=== PATIENT | male | born 1965 | race Caucasian/White ===

== ENCOUNTER → 2017-07-25 | Outpatient (CLI) | payer SELFPAY ==
[~2017-07-25] MED LIST: ACHD5005 PO; ACID16CA2 PO; ALBU8.5H4 IH; AMLO5TAB2 PO; AMOX500C2 PO; ASP81CT PO; ASP81TEC PO; ATOR40TA PO; CEPH500C PO; CPR500T PO; CYCL10TA9 PO; DOXY100C2 PO; GABA800T2 PO; GUAI120L27 PO; HYDR-1231 PO; MELO15TA14 PO; METO25TA2 PO; MTP25TSR PO; MTR500T PO; NAPR-243 PO; OMEG1CAP74 PO; PRD20T PO; PRD50T PO; SULF-222 PO; TRAM50TA2 PO; TRM50T PO; TRZ100T PO
--- NOTE | 2017-07-25 10:57 | Diagnostic Imaging Report ---
PROCEDURE: MRI right joint lower extremity without contrast. TECHNIQUE: Multiplanar, multisequence non contrast-enhanced MRI of the right lower extremity was accomplished. INDICATION: Shoulder pain. FINDINGS: There are no previous MRI examinations available for comparison. The plain film exam of 06/26/2014 failed to show any sign of an acute bony abnormality. On the sagittal T2 oblique series, both the anterior and posterior cruciate ligaments appear to be intact. The quadriceps and infrapatellar tendons are also intact, although there does appear to be edema/inflammation along the soft tissues anterior to the patella and the infrapatellar tendon. The medial collateral and fibular collateral ligaments, the biceps femoris tendon, and the iliotibial band show no sign of an acute injury. There is no sign of a tear of the medial or lateral retinaculum. There are areas of abnormal signal within the substance of each meniscus. However, these signal abnormalities do not clearly communicate with the articular surfaces of the menisci and consequently are more likely due to degenerative disease than to a tear. The knee joint is fairly well maintained. There is only a small amount of fluid within the knee joint. There is no evidence for a Scott's cyst. IMPRESSION: 1. The major ligaments and tendons are intact. 2. The areas of altered signal within the menisci are more likely due to degenerative disease than to meniscal tears. 3. There is no acute bony abnormality identified. The knee joint is fairly well maintained. 4. There is soft tissue edema along the anterior aspect of the patella and the infrapatellar tendon. Dictated by: Dictated on workstation # [id number]
== END ==
LOC: RAD 09:34
PROVIDERS: ATTEND Nurse Practitioner
DX: S83.241A Other tear of medial meniscus, current injury, right knee, initial encounter (principal)
CPT/HCPCS: 73721

== ENCOUNTER 2021-12-06 11:33 | Emergency (ER) | payer SELFPAY ==
[~2021-12-06] VITALS: Ht 170 cm; Wt 88.0 kg
[~2021-12-06 11:33] MED LIST changes: +CYCL10TA25 PO; -CYCL10TA9 PO; +GABA800T10 PO; -GABA800T2 PO
--- NOTE | 2021-12-06 13:07 | ED General ---
General Chief Complaint: Rib Pain Stated Complaint: RIB PAIN Source of Information: Patient Exam Limitations: No Limitations History of Present Illness Date Seen by Provider: December 06, 2021 Time Seen by Provider: 13:00 Initial Comments This is a 55-year-old male who presented to the ER for complaints of left-sided rib pain and left upper quadrant tenderness for the past 2 days. States that on December 04 he had a "car fall on him while he was working underneath it. He was not evaluated after the incident and over the past several days he has been having increasing pain. Today he was unable to get out of bed by himself so he presented to the ER to evaluate for any possible fractures. Has not taken any Tylenol or ibuprofen or any other pain relief medications at home. States that he takes gabapentin daily and did take this morning. He has no shortness of breath, nausea, vomiting. Allergies and Home Medications Allergies Coded Allergies: Penicillins (Unverified Allergy, Unknown, 03/02/12) diphenhydramine HCl (Verified Allergy, Unknown, 09/28/13) latex (Unverified Adverse Reaction, Mild, rash, 09/28/13) Patient Home Medication List Albuterol Sulfate (Albuterol Sulfate Hfa) 8.5 Gm Hfa.aer.ad, 8.5 GM IH, (Reported) Entered as Reported by: MAGGI AQUINO on 02/12/15 180 Amlodipine Besylate (Amlodipine Besylate) 5 Mg Tablet, 5 MG PO DAILY, (Reported) Entered as Reported by: JAMAL MADRID on 02/18/11 1336 Cyclobenzaprine HCl (Cyclobenzaprine HCl) 10 Mg Tablet, 10 MG PO Q8H Prescribed by: MAURISIO KELLEY on 08/04/15632 Gabapentin (Gabapentin) 800 Mg Tablet, 800 MG PO, (Reported) Entered as Reported by: FREDDY ROSALES on 08/04/15 05 Meloxicam (Mobic) 15 Mg Tablet, 15 MG PO DAILY Prescribed by: MAURISIO KELLEY on 08/04/15632 Metoprolol Tartrate (Metoprolol Tartrate 25 Mg) 25 Mg Tablet, 25 MG PO BID, (Reported) Entered as Reported by: JAMAL MADRID on 02/18/11 1336 Tramadol HCl (Tramadol HCl) 50 Mg Tablet, 50 MG PO, (Reported) Entered as Reported by: FREDDY ROSALES on 08/04/15 0526 Trazodone Hcl (Desyrel) 100 Mg Tablet, 100 MG PO HS, (Reported) Entered as Reported by: DONALD BUSH on 09/28/13 1109 Past Sjlqzuh-Pmthay-Dcizut Hx Seasonal Allergies Seasonal Allergies: No Past Medical History Appendectomy, Cardiac, Orthopedic Asthma, COPD Hypertension Reproductive Disorders: No Chronic Back Pain Sleep Difficulties Adverse Reaction/Blood Tranf: No Physical Exam Vital Signs Capillary Refill : Height, Weight, BMI Height: 5'7" Weight: 200lbs. 6.4oz. 90.219696yf; 31.32 BMI Method:Estimated Progress/Results/Core Measures Suspected Sepsis SIRS Temperature: Pulse: Respiratory Rate: Blood Pressure / Mean: Results/Orders My Orders Orders - SHERWIN ATKINS APRN Ct Chest/Abdomen Wo (12/06/21 13:02) Hydrocodone/Apap 5/325 Tablet (Lortab 5 (12/06/21 13:15) Medications Given in ED Current Medications Medications Dose Ordered Sig/Nicole Route Start Time Stop Time Status Last Admin Dose Admin Acetaminophen/ Hydrocodone Bitart 1 ea ONCE ONCE PO 12/06/21 13:15 12/06/21 13:16 DC 12/06/21 13:11 1 EA Vital Signs/I&O Capillary Refill : Departure Impression Primary Impression: Contusion of rib on left side Disposition: 01 HOME, SELF-CARE Condition: Improved Departure-Patient Inst. Referrals: AMANDA SLADE DO (PCP/Family) Primary Care Physician Patient Instructions: Rib Fracture or Bruised Rib ED Add. Discharge Instructions: Plan: 1. Take steroids daily as directed with food so this does not cause GI upset. 2. May take hydrocodone as needed every 6 hours for severe pain, you can take ibuprofen as directed per package with food. 3. Use your incentive spirometer 4 times a day as shown in the ER, this is to help prevent you from developing pneumonia. 4. Follow-up with your primary care provider if your symptoms worsen, you develop fever, increased cough, shortness of breath or any other new or concerning symptoms. All discharge instructions reviewed with patient and/or family. Voiced unde rstanding. Scripts Hydrocodone/Acetaminophen (Hydrocodone-Acetamin 5-325 mg) 5 Mg-325 Mg Tablet 1 TAB PO Q6H PRN for PAIN-MODERATE (5-7), #10 TAB 0 Refills Prov: SHERWIN ATKINS POLICY CHECKER 12/06/21 Prednisone (Prednisone) 20 Mg Tab 20 MG PO DAILY, #6 TAB 0 Refills Prov: SHERWIN ATKINS POLICY CHECKER 12/06/21 SHERWIN ATKINS APRN December 06, 2021 13:07
[2021-12-06] MEDS ORDERED: HYDROcodone/APAP 5 MG/325 MG (LORTAB) TAB PO ONE (13:15)
--- NOTE | 2021-12-06 14:37 | Diagnostic Imaging Report ---
PROCEDURE: CT chest and abdomen without contrast. TECHNIQUE: Axial images were obtained from the thoracic inlet through the iliac crest without the administration of intravenous contrast. Auto Exposure Controls were utilized during the CT exam to meet ALARA standards for radiation dose reduction. INDICATION: Unable to raise the left arm. Left-sided chest and abdominal pain. COMPARISON: None. FINDINGS: CT CHEST: The heart size is within normal limits. No pericardial effusion is present. Left pectoral ICD is in place. There is no mediastinal, hilar, or axillary lymphadenopathy. The lung windows demonstrate no pulmonary nodules or masses. There are no focal areas of consolidation. Small amount of dependent atelectasis is seen in the lung bases. No pneumothoraces are present. No central endobronchial obstructing lesions are identified. There are no pleural effusions. No acute osseous abnormalities are seen in the chest. CT ABDOMEN: The liver, spleen, pancreas, adrenal glands, and kidneys have a normal appearance. There is no pathologically enlarged mesenteric or retroperitoneal adenopathy. The bowel loops are nondilated. Diverticula are seen in the descending colon. There is no free fluid or free air. No acute osseous abnormalities. IMPRESSION: 1. No evidence of fracture in the left ribs. 2. No focal consolidation or pleural effusion. Small amount of dependent atelectasis is seen in the lung bases. 3. Diverticula in the descending colon without evidence of acute diverticulitis. Dictated by: Dictated on workstation # [id number]
[2021-12-06] MEDS ORDERED: PRD20T PO (14:45)
[2021-12-06] MEDS ORDERED: ACHD5005 PO (14:45)
[2021-12-06 14:59] VITALS: BP 138/88
== END 2021-12-06 14:59 | disposition home or self-care (01) ==
LOC: EDUNIT# 11:33 → ER 11:37
DX: S20.212A Contusion of left front wall of thorax, initial encounter (principal); Z79.899 Other long term (current) drug therapy; X58.XXXA Exposure to other specified factors, initial encounter
CPT/HCPCS: 71250; 74150

== ENCOUNTER 2021-12-13 17:01 | Emergency (ER) | payer SELFPAY ==
[~2021-12-13] VITALS: Ht 173 cm; Wt 89.0 kg
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
[2021-12-13 17:43] LABS: BASOPHILS % (AUTO) 1 % (0-10); MEAN CORPUSCULAR HEMOGLOBIN 29 pg (25-34); MONOCYTES # (AUTO) 0.4 10^3/uL (0.0-1.0)
[2021-12-13 17:45] LABS: EOSINOPHILS # (AUTO) 0.3 10^3/uL (0.0-0.3); EOSINOPHILS % (AUTO) 7 % (0-10); HEMATOCRIT 39 % (40-54); HEMOGLOBIN 13.6 g/dL (13.3-17.7); LYMPHOCYTES # (AUTO) 1.4 10^3/uL (1.0-4.0); LYMPHOCYTES % (AUTO) 32 % (12-44); MEAN CORPUSCULAR HGB CONC 35 g/dL (32-36); MEAN CORPUSCULAR VOLUME 84 fL (80-99); MEAN PLATELET VOLUME 10.9 fL (9.0-12.2); MONOCYTES % (AUTO) 9 % (0-12); NEUTROPHILS # (AUTO) 2.3 10^3/uL (1.8-7.8); NEUTROPHILS % (AUTO) 51 % (42-75); PLATELET COUNT 128 10^3/uL (130-400); WHITE BLOOD COUNT 4.5 10^3/uL (4.3-11.0)
--- NOTE | 2021-12-13 18:02 | Diagnostic Imaging Report ---
INDICATION: Left rib pain. TIME OF EXAM: 5:55 p.m. COMPARISON: Correlation is made with prior chest 03/07/2016. FINDINGS: Heart size is stable. Cardiac defibrillator is in place. Lungs are clear. No infiltrates are seen. There is no effusion or pneumothorax. No acute bony abnormality is detected. IMPRESSION: No acute abnormality is identified. Dictated by: Dictated on workstation # [id number]
[2021-12-13 18:04] LABS: ALBUMIN 3.8 GM/DL (3.2-4.5); BILIRUBIN,TOTAL 0.7 MG/DL (0.1-1.0); CALCIUM 9.1 MG/DL (8.5-10.1); CREATININE SERUM 0.86 MG/DL (0.60-1.30); POTASSIUM 3.6 MMOL/L (3.6-5.0); TOTAL PROTEIN 6.8 GM/DL (6.4-8.2)
[2021-12-13] MEDS ORDERED: LIDO700A45 TP (18:28)
[2021-12-13] MEDS ORDERED: METH-731 PO (18:28)
[2021-12-13] MEDS ORDERED: KETOROLAC 30 MG/ML VIAL IVP ONE (18:30)
[2021-12-13] MEDS ORDERED: ORPHENADRINE 60 MG/2 ML (NORFLEX) AMP (ED ONLY) IV ONE (18:30)
[2021-12-13 18:40] VITALS: BP 145/83
== END 2021-12-13 18:38 | disposition home or self-care (01) ==
LOC: EDUNIT# 17:01 → ER 17:07
DX: R07.89 Other chest pain (principal); W20.8XXA Other cause of strike by thrown, projected or falling object, initial encounter
CPT/HCPCS: 36415; 71046; 80053; 85025; 86141

== ENCOUNTER 2022-06-28 08:39 | Observation (INO) | payer OTHER, MEDICAID ==
[~2022-06-28] VITALS: Ht 170 cm; Wt 92.8 kg
[~2022-06-28 08:39] MED LIST changes: +LIDO700A45 TP; +METH-731 PO
--- NOTE | 2022-06-28 08:47 | ED General ---
General Stated Complaint: SOB | History of Present Illness Date Seen by Provider: Jun 28, 2022 Time Seen by Provider: 08:47 Initial Comments 56-year-old male with PMH of CAD with 2 stents/pacemaker/asthma/non-smoker, is here with complaints of shortness of breath which has been going on for 3 days and worsening in intensity. Patient has been using his inhalers but it has not been working much, and he has begun wheezing today morning as well. Patient also has associated symptoms of cough. No known sick contacts. Denies chest pain, diarrhea, headache, body aches. Patient's states that patient is noncompliant with medications and misses medication doses all the time. Allergies and Home Medications Allergies Coded Allergies: Penicillins (Unverified Allergy, Unknown, 03/02/12) diphenhydramine HCl (Verified Allergy, Unknown, 09/28/13) latex (Unverified Adverse Reaction, Mild, rash, 09/28/13) Patient Home Medication List Home Medication List Reviewed: Yes Albuterol Sulfate (Albuterol Sulfate Hfa) 8.5 Gm Hfa.aer.ad, 8.5 GM IH, (Reported) Entered as Reported by: MAGGI AQUINO on 02/12/15 1801 Amlodipine Besylate (Amlodipine Besylate) 5 Mg Tablet, 5 MG PO DAILY, (Reported) Entered as Reported by: JAMAL MADRID on 02/18/11 1336 Cyclobenzaprine HCl (Cyclobenzaprine HCl) 10 Mg Tablet, 10 MG PO Q8H Prescribed by: MAURISIO KELLEY on 08/04/15 0633 Gabapentin (Gabapentin) 800 Mg Tablet, 800 MG PO, (Reported) Entered as Reported by: FREDDY ROSALES on 08/04/15 0526 Hydrocodone/Acetaminophen (Hydrocodone-Acetamin 5-325 mg) 5 Mg-325 Mg Tablet, 1 TAB PO Q6H PRN for PAIN-MODERATE (5-7) Prescribed by: SHERWIN ATKINS on 12/06/21 1446 Lidocaine (Lidocaine 5% Patch) 5 % Adh..patch, 1 EACH TP Q12H PRN for Neuropathic pain Prescribed by: HUMERA WARREN on 12/13/21 1828 Meloxicam (Mobic) 15 Mg Tablet, 15 MG PO DAILY Prescribed by: MAURISIO KELLEY on 08/04/15 0633 Methocarbamol (Methocarbamol) 500 Mg Tablet, 1,000 MG PO Q6-8HR Prescribed by: HUMERA WARREN on 12/13/21 1828 Metoprolol Tartrate (Metoprolol Tartrate 25 Mg) 25 Mg Tablet, 25 MG PO BID, (Reported) Entered as Reported by: JAMAL MADRID on 02/18/11 1336 Prednisone (Prednisone) 20 Mg Tab, 20 MG PO DAILY Prescribed by: SHERWIN ATKINS on 12/06/21 1445 Tramadol HCl (Tramadol HCl) 50 Mg Tablet, 50 MG PO, (Reported) Entered as Reported by: FREDDY ROSALES on 08/04/15 0526 Trazodone Hcl (Desyrel) 100 Mg Tablet, 100 MG PO HS, (Reported) Entered as Reported by: DONALD BUSH on 09/28/13 1109 Review of Systems Review of Systems Constitutional: no symptoms reported EENTM: no symptoms reported Respiratory: cough, short of breath Cardiovascular: no symptoms reported Gastrointestinal: no symptoms reported Genitourinary: no symptoms reported Musculoskeletal: no symptoms reported Skin: no symptoms reported Psychiatric/Neurological: No Symptoms Reported Hematologic/Lymphatic: No Symptoms Reported Immunological/Allergic: no symptoms reported Past Wfsltms-Ujdpdx-Ehudea Hx Seasonal Allergies Seasonal Allergies: No Past Medical History Surgery/Hospitalization HX: pacemaker, hypertension, high cholesterol Appendectomy, Cardiac, Orthopedic Asthma, COPD Hypertension Reproductive Disorders: No Chronic Back Pain Sleep Difficulties Adverse Reaction/Blood Tranf: No Physical Exam Vital Signs Vital Signs - First Documented 06/28/22 08:40 Temp 37.7 Pulse 114 Resp 16 B/P (MAP) 164/113 (130) Pulse Ox 94 O2 Delivery Room Air Capillary Refill : Height, Weight, BMI Height: 5'7" Weight: 200lbs. 6.4oz. [id number]; 29.00 BMI Method:Estimated General Appearance: No Apparent Distress, WD/WN, Mild Distress HEENT: PERRL/EOMI, Pharyngeal Erythema Neck: Full Range of Motion, Normal Inspection, Non Tender, Supple Respiratory: No Accessory Muscle Use, No Respiratory Distress, Rhonci, Wheezing, Other (Tenderness over the left 11th and 12th rib area) Cardiovascular: Regular Rate, Rhythm, No Edema Gastrointestinal: Normal Bowel Sounds, Non Tender, Soft Back: Normal Inspection, No CVA Tenderness Extremity: Normal Range of Motion Neurologic/Psychiatric: Alert, Oriented x3, No Motor/Sensory Deficits Skin: Normal Color Focused Exam Lactate Level 06/28/22 08:47: Lactic Acid Level 3.04*H 06/28/22 11:25: Lactic Acid Level 1.32 Lactic Acid Level Laboratory Tests Test 06/28/22 08:47 06/28/22 11:25 Lactic Acid Level 3.04 MMOL/L (0.50-2.00) *H 1.32 MMOL/L (0.50-2.00) Progress/Results/Core Measures Suspected Sepsis SIRS Temperature: Pulse: Respiratory Rate: Laboratory Tests 06/28/22 08:47: White Blood Count 5.2 Blood Pressure / Mean: 06/28/22 08:47: Lactic Acid Level 3.04*H 06/28/22 11:25: Lactic Acid Level 1.32 Laboratory Tests 06/28/22 08:47: Creatinine 0.93, INR Comment 1.0, Platelet Count 97L, Total Bilirubin 1.0 Results/Orders Lab Results Laboratory Tests Test 06/28/22 08:47 06/28/22 09:23 06/28/22 11:08 06/28/22 11:25 Range/Units White Blood Count 5.2 4.3-11.0 10^3/uL Red Blood Count 5.07 4.30-5.52 10^6/uL Hemoglobin 14.5 13.3-17.7 g/dL Hematocrit 41 40-54 % Mean Corpuscular Volume 82 80-99 fL Mean Corpuscular Hemoglobin 29 25-34 pg Mean Corpuscular Hemoglobin Concent 35 32-36 g/dL Red Cell Distribution Width 14.6 H 10.0-14.5 % Platelet Count 97 L 130-400 10^3/uL Mean Platelet Volume 11.5 9.0-12.2 fL Immature Granulocyte % (Auto) 0 % Neutrophils (%) (Auto) 76 H 42-75 % Lymphocytes (%) (Auto) 13 12-44 % Monocytes (%) (Auto) 10 0-12 % Eosinophils (%) (Auto) 0 0-10 % Basophils (%) (Auto) 1 0-10 % Neutrophils # (Auto) 4.0 1.8-7.8 10^3/uL Lymphocytes # (Auto) 0.7 L 1.0-4.0 10^3/uL Monocytes # (Auto) 0.5 0.0-1.0 10^3/uL Eosinophils # (Auto) 0.0 0.0-0.3 10^3/uL Basophils # (Auto) 0.0 0.0-0.1 10^3/uL Immature Granulocyte # (Auto) 0.0 0.0-0.1 10^3/uL Percent Immature Platelet Fraction 10.1 H 0.0-7.6 % Prothrombin Time 13.7 12.2-14.7 SEC INR Comment 1.0 0.8-1.4 Activated Partial Thromboplast Time 32 24-35 SEC D-Dimer 1.13 H 0.00-0.49 UG/ML Sodium Level 133 L 135-145 MMOL/L Potassium Level 3.3 L 3.6-5.0 MMOL/L Chloride Level 101 98-107 MMOL/L Carbon Dioxide Level 21 21-32 MMOL/L Anion Gap 11 5-14 MMOL/L Blood Urea Nitrogen 8 7-18 MG/DL Creatinine 0.93 0.60-1.30 MG/DL Estimat Glomerular Filtration Rate 96 BUN/Creatinine Ratio 9 Glucose Level 170 H 70-105 MG/DL Lactic Acid Level 3.04 *H 1.32 0.50-2.00 MMOL/L Calcium Level 8.3 L 8.5-10.1 MG/DL Corrected Calcium 8.5 8.5-10.1 MG/DL Magnesium Level 1.8 1.6-2.4 MG/DL Total Bilirubin 1.0 0.1-1.0 MG/DL Aspartate Amino Transf (AST/SGOT) 18 5-34 U/L Alanine Aminotransferase (ALT/SGPT) 18 0-55 U/L Alkaline Phosphatase 64 40-136 U/L Troponin I 0.065 H <0.028 NG/ML B-Type Natriuretic Peptide 363.8 H <100.0 PG/ML Total Protein 6.7 6.4-8.2 GM/DL Albumin 3.7 3.2-4.5 GM/DL Procalcitonin 0.28 H <0.10 NG/ML Influenza Type A (RT-PCR) Detected H Not Detecte Influenza Type B (RT-PCR) Not Detected Not Detecte SARS-CoV-2 RNA (RT-PCR) Not Detected Not Detecte Urine Color YELLOW Urine Clarity CLEAR Urine pH 6.0 5-9 Urine Specific [place] >=1.030 1.016-1.022 Urine Protein TRACE H NEGATIVE Urine Glucose (UA) TRACE H NEGATIVE Urine Ketones NEGATIVE NEGATIVE Urine Nitrite NEGATIVE NEGATIVE Urine Bilirubin NEGATIVE NEGATIVE Urine Urobilinogen 4.0 < = 1.0 MG/DL Urine Leukocyte Esterase NEGATIVE NEGATIVE Urine RBC (Auto) TRACE-I H NEGATIVE Urine RBC 0-2 /HPF Urine WBC 0-2 /HPF Urine Squamous Epithelial Cells 0-2 /HPF Urine Crystals NONE /LPF Urine Bacteria TRACE /HPF Urine Casts NONE /LPF Urine Mucus SMALL H /LPF Urine Culture Indicated NO Group A Streptococcus Screen NEGATIVE NEGATIVE Test 06/28/22 12:18 Range/Units Troponin I 0.075 H <0.028 NG/ML My Orders Orders - GIOVANA MCCURDY MD Covid 19 Inhouse Test (06/28/22 08:43) Influenza A And B By Pcr (06/28/22 08:43) Albuterol/Ipra Inhalation Soln (Duoneb I (06/28/22 09:15) Methylprednisolone Sod Succ (Solu-Medrol (06/28/22 09:03) Chest 1 View, Ap/Pa Only (06/28/22 09:03) Svn Small Volume Nebulizer (06/28/22 09:03) Bnp [place] (06/28/22 09:04) Cbc With Automated Diff (06/28/22 09:04) Comprehensive Metabolic Panel (06/28/22 09:04) Fibrin Degradation Products (06/28/22 09:04) Lactic Acid Analyzer (06/28/22 09:04) Magnesium (06/28/22 09:04) Procalcitonin (Pct) (06/28/22 09:04) Rapid Strep A Screen (06/28/22 09:04) Ua Culture If Indicated (06/28/22 09:04) Troponin I [place] (06/28/22 09:04) Ed Iv/Invasive Line Start (06/28/22 09:39) Ns Iv 1000 Ml (Sodium Chloride 0.9%) (06/28/22 09:45) Potassium Cl 10meq/50ml Ivpb (Kcl 10 Meq (06/28/22 09:39) Potassium Chloride (Tablet) (K Dur Table (06/28/22 09:45) Ct Angio Chest W (Ro/Pe) (06/28/22 09:42) Ekg Tracing (06/28/22 09:48) Continuous Ekg Monitoring (06/28/22 09:48) Iohexol Injection (Omnipaque 350 Mg/Ml 1 (06/28/22 10:15) Received Contrast (Hold Metformin- Contr (06/28/22 10:15) Ns (Ivpb) (Sodium Chloride 0.9% Ivpb Bag (06/28/22 10:15) Ct Angio Chest W (06/28/22 ) Protime With Inr (06/28/22 10:33) Partial Thromboplastin Time (06/28/22 10:33) Blood Culture (06/28/22 11:04) Sputum Culture (06/28/22 11:04) Urine Culture (06/28/22 11:04) Ed Iv/Invasive Line Start (06/28/22 11:04) Vital Signs Adult Sepsis Patie Q15M (06/28/22 11:04) Ns Iv 1000 Ml (Sodium Chloride 0.9%) (06/28/22 11:15) Cefepime Injection (Maxipime Injection) (06/28/22 11:15) Troponin I [place] (06/28/22 11:12) Ekg Tracing (06/28/22 11:13) Aspirin Chewable Tablet (Baby Aspirin Ch (06/28/22 12:00) Clopidogrel Tablet (Plavix Tablet) (06/28/22 12:45) Metoprolol Succinate (Xl) Tab (Toprol Xl (06/28/22 13:00) Ed Admission (Communication) (06/28/22 12:59) Medications Given in ED Current Medications Medications Dose Ordered Sig/Nicole Route Start Time Stop Time Status Last Admin Dose Admin Albuterol/ Ipratropium 3 ml ONCE ONCE INH 06/28/22 09:15 06/28/22 09:16 DC 06/28/22 09:29 3 ML Aspirin 324 mg ONCE ONCE PO 06/28/22 12:00 06/28/22 12:01 DC 06/28/22 12:21 324 MG Cefepime HCl 1000 mg/Sodium Chloride 50 ml @ 100 mls/hr ONCE ONCE IV 06/28/22 11:15 06/28/22 11:44 DC 06/28/22 11:53 100 MLS/HR Clopidogrel Bisulfate 300 mg ONCE ONCE PO 06/28/22 12:45 06/28/22 12:46 DC 06/28/22 12:53 300 MG Iohexol 100 ml ONCE ONCE IV 06/28/22 10:15 06/28/22 10:16 DC 06/28/22 10:14 75 ML Metoprolol Succinate 25 mg ONCE ONCE PO 06/28/22 13:00 06/28/22 13:01 06/28/22 12:53 25 MG Potassium Chloride 40 meq ONCE ONCE PO 06/28/22 09:45 06/28/22 09:46 DC 06/28/22 10:45 40 MEQ Sodium Chloride 100 ml ONCE ONCE IV 06/28/22 10:15 06/28/22 10:16 DC 06/28/22 10:14 80 ML Vital Signs/I&O 06/28/22 08:40 Temp 37.7 Pulse 114 Resp 16 B/P (MAP) 164/113 (130) Pulse Ox 94 O2 Delivery Room Air Capillary Refill : Progress Note : Progress Note 1. INFLUENZA A with ACUTE ASTHMA EXACERBATION:: - CXR: normal - COVID test: negative - Rapid flu test: Positive for influenza A - Out of window for Tamiflu - Duo Neb & solumedrol 125mg iv STAT -We will admit to cardiac stepdown, accepted by hospitalist 2. SEPSIS & DEHYDRATION with BILATERAL PNEUMONIA: - WBC is normal, however there is a left shift with increased neutrophils - Lactic acid elevated at 3.04 -Procalcitonin is elevated at 0.28 - NS IVF bolus - Cefepime 1g, iv STAT 3.ELECTROLYTE ABNORMALITIES: HYPOKALEMIA & HYPONATREMIA: - s. Na is 133, and s. K is 3.3 -Patient is supposed to be on daily potassium supplements but he never takes it - NS IVF & Potassium 20 mEq iv STAT and oral potassium 40mEq STAT 4. ELEVATED TROPONIN: - Troponin: 0.065 - EKG: see ekg report, compared to old EKG report from 2016. ST changes in V1-V5 in both EKG's - No chest pain at all -Patient is supposed to be taking a baby aspirin daily, but he is very noncompliant medications and rarely takes it. -Cardiology consult via phone - ASA 324 mg STAT in ER - Also gave Plavix 300mg, Metoprolol XL 25mg as recommended by Cardiology consult Diagnostic Imaging Diagonstic Imaging: Xray Plain Films/CT/US/NM/MRI: chest Comments [facility]. [place], [place] NAME: KIRK SANTOS [facility] REC#: [id number] PT STATUS: REG ER : 1965 PHYSICIAN: GIOVANA MCCURDY MD ADMIT DATE: 06/28/22/ER Draft Date of Exam:06/28/22 CT ANGIO CHEST W CLINICAL INDICATION: Patient with elevated d-dimer and shortness of air. EXAM: CT angiogram of the chest performed with 75 cc Omnipaque 350 IV contrast. Coronal and oblique MIP images of the vasculature were created to better evaluate anatomy. Auto Exposure Controls were utilized during the CT exam to meet ALARA standards for radiation dose reduction. COMPARISON: None. FINDINGS: There is no evidence of pulmonary embolism. There is no thoracic aortic aneurysm. There is no significant contrast within the thoracic aorta limiting evaluation. There is interval development of patchy nodular areas of consolidation and adjacent groundglass opacification throughout the left upper lobe and left lower lobe. There is no pleural effusion. There are small nodular areas involving the anterior right lower lobe. There is superimposed mild atelectasis involving the posterior aspects of both lungs. There is bronchial wall thickening seen bilaterally which can be seen with bronchitis. There is mediastinal and hilar lymphadenopathy. There is no axillary lymphadenopathy. There is no pleural effusion pneumothorax. The mediastinal structures and heart shows no significant abnormality. A cardiac pacemaker is seen overlying the left chest. The visualized portions of the upper abdominal structures are unremarkable. There are degenerative spurs involving the thoracic spine. IMPRESSION: 1: There is no evidence of pulmonary embolism. There is no thoracic aortic aneurysm. 2: There are patchy areas of infiltrate and groundglass opacification involving the left upper lobe, left lower lobe, and anterior right lower lobe region. There is also bronchial wall thickening seen bilaterally. These findings are concerning for pneumonia and bronchitis. 3: There is mediastinal and hilar lymphadenopathy. Dictated on workstation # [id number] Dict: 06/28/22 1022 Trans: 06/28/22 1032 [id number] Interpreted by: DONOVAN MADRIGAL MD Electronically signed by: [facility]. [place], [place] NAME: KIRK SANTOS [facility] REC#: [id number] PT STATUS: REG ER : 1965 PHYSICIAN: GIOVANA MCCURDY MD ADMIT DATE: 06/28/22/ER Draft Date of Exam:06/28/22 CHEST 1 VIEW, AP/PA ONLY INDICATION: Shortness of air, cough, fever. COMPARISON: 12/13/2021 FINDINGS: Cardiac support device stable. Heart size stable. No focal consolidation, effusion or pneumothorax. IMPRESSION: No acute appearing abnormality. Dictated on workstation # [id number] Dict: 06/28/22932 Trans: 06/28/22938 [id number] Interpreted by: CARLOS CHIN Electronically signed by: Departure Communication (Admissions) Time/Spoke to Admitting Phy: 12:45 Will admit to cardiac stepdown for observation. Accepted by Dr. Peter, hospitalist Time/Spoke to Consulting Phy: 12:[address] Morris, will add Plavix 300 mg and metoprolol XL 25 mg is recommended. Cardiology will consult on the floor as well. Impression Primary Impression: Acute asthma exacerbation Qualified Codes: J45.41 - Moderate persistent asthma with (acute) exacerbation Additional Impressions: Influenza A Pneumonia of both lower lobes Sepsis Qualified Codes: A41.9 - Sepsis, unspecified organism Dehydration Hyponatremia Hypokalemia Elevated d-dimer Elevated troponin Disposition: 30 STILL A PATIENT Condition: Stable Admissions Decision to Admit Reason: Admit from ER (General) Decision to Admit/Date: Jun 28, 2022 Time/Decision to Admit Time: 12:00 Departure-Patient Inst. Referrals: AMANDA SLADE DO (PCP/Family) Primary Care Physician GIOVANA MCCURDY MD Jun 28, 2022 08:47
[2022-06-28] MEDS ORDERED: methylPREDNISolone 125 MG (Solu-MEDROL) VIAL IV STA (09:03)
[2022-06-28] MEDS ORDERED: RT-ALBUTEROL/IPRATROPIUM 3 ML (DUONEB) VIAL INH ONE (09:15)
[2022-06-28 09:21] LABS: HEMOGLOBIN 14.5 g/dL (13.3-17.7); WHITE BLOOD COUNT 5.2 10^3/uL (4.3-11.0)
[2022-06-28 09:23] LABS: ALBUMIN 3.7 GM/DL (3.2-4.5); BASOPHILS % (AUTO) 1 % (0-10); EOSINOPHILS % (AUTO) 0 % (0-10); HEMATOCRIT 41 % (40-54); LYMPHOCYTES # (AUTO) 0.7 10^3/uL (1.0-4.0); LYMPHOCYTES % (AUTO) 13 % (12-44); MEAN CORPUSCULAR HEMOGLOBIN 29 pg (25-34); MEAN CORPUSCULAR HGB CONC 35 g/dL (32-36); MEAN CORPUSCULAR VOLUME 82 fL (80-99); MEAN PLATELET VOLUME 11.5 fL (9.0-12.2); MONOCYTES # (AUTO) 0.5 10^3/uL (0.0-1.0); MONOCYTES % (AUTO) 10 % (0-12); NEUTROPHILS % (AUTO) 76 % (42-75); PLATELET COUNT 97 10^3/uL (130-400)
[2022-06-28 09:24] LABS: POTASSIUM 3.3 MMOL/L (3.6-5.0)
[2022-06-28 09:25] LABS: CALCIUM 8.3 MG/DL (8.5-10.1)
[2022-06-28 09:26] LABS: TOTAL PROTEIN 6.7 GM/DL (6.4-8.2)
[2022-06-28 09:30] LABS: CREATININE SERUM 0.93 MG/DL (0.60-1.30)
[2022-06-28 09:30] LABS: BILIRUBIN,URINE NEGATIVE (NEGATIVE); CLARITY,URINE CLEAR; COLOR,URINE YELLOW; GLUCOSE, URINE (UA) TRACE (NEGATIVE); KETONES,URINE NEGATIVE (NEGATIVE); LEUKOCYTE ESTERASE ,URINE NEGATIVE (NEGATIVE); NITRITE,URINE NEGATIVE (NEGATIVE); PROTEIN,URINE TRACE (NEGATIVE)
[2022-06-28 09:33] LABS: MAGNESIUM 1.8 MG/DL (1.6-2.4)
[2022-06-28] MEDS ORDERED: POTASSIUM CL 10MEQ/50ML IVPB 50 ML IV STA (09:39)
--- NOTE | 2022-06-28 09:41 | Diagnostic Imaging Report ---
INDICATION: Shortness of air, cough, fever. COMPARISON: 12/13/2021 FINDINGS: Cardiac support device stable. Heart size stable. No focal consolidation, effusion or pneumothorax. IMPRESSION: No acute appearing abnormality. Dictated by: Dictated on workstation # [id number]
[2022-06-28] MEDS ORDERED: KCL 20 MEQ TAB (K-DUR) PO ONE (09:45)
[2022-06-28] MEDS ORDERED: NS IV 1000 ML 1,000 ML IV SCH ×2 (09:45→11:15)
[2022-06-28 09:47] LABS: BACTERIA,URINE TRACE /HPF; RBC,URINE 0-2 /HPF; SQUAMOUS EPITHELIAL CELL,UR 0-2 /HPF; WBC,URINE 0-2 /HPF
[2022-06-28] MEDS ORDERED: HOLD METFORMIN - RECEIVED CONTRAST 20 ML VIAL IV SCH (10:15)
[2022-06-28] MEDS ORDERED: NS 100 ML (IVPB) BAG IV ONE (10:15)
[2022-06-28] MEDS ORDERED: IOHEXOL 350 MG/ML 100 ML (OMNIPAQUE 350) VIAL IV ONE (10:15)
--- NOTE | 2022-06-28 10:32 | Diagnostic Imaging Report ---
CLINICAL INDICATION: Patient with elevated d-dimer and shortness of air. EXAM: CT angiogram of the chest performed with 75 cc Omnipaque 350 IV contrast. Coronal and oblique MIP images of the vasculature were created to better evaluate anatomy. Auto Exposure Controls were utilized during the CT exam to meet ALARA standards for radiation dose reduction. COMPARISON: None. FINDINGS: There is no evidence of pulmonary embolism. There is no thoracic aortic aneurysm. There is no significant contrast within the thoracic aorta limiting evaluation. There is interval development of patchy nodular areas of consolidation and adjacent groundglass opacification throughout the left upper lobe and left lower lobe. There is no pleural effusion. There are small nodular areas involving the anterior right lower lobe. There is superimposed mild atelectasis involving the posterior aspects of both lungs. There is bronchial wall thickening seen bilaterally which can be seen with bronchitis. There is mediastinal and hilar lymphadenopathy. There is no axillary lymphadenopathy. There is no pleural effusion pneumothorax. The mediastinal structures and heart shows no significant abnormality. A cardiac pacemaker is seen overlying the left chest. The visualized portions of the upper abdominal structures are unremarkable. There are degenerative spurs involving the thoracic spine. IMPRESSION: 1: There is no evidence of pulmonary embolism. There is no thoracic aortic aneurysm. 2: There are patchy areas of infiltrate and groundglass opacification involving the left upper lobe, left lower lobe, and anterior right lower lobe region. There is also bronchial wall thickening seen bilaterally. These findings are concerning for pneumonia and bronchitis. 3: There is mediastinal and hilar lymphadenopathy. Dictated by: Dictated on workstation # [id number]
[2022-06-28 10:47] LABS: PROTHROMBIN TIME PATIENT 13.7 SEC (12.2-14.7)
[2022-06-28] MEDS ORDERED: CEFEPIME INJECTION 1,000 MG in NS (IVPB) 50 ML IV ONE (11:15)
[2022-06-28] MEDS ORDERED: ASPIRIN 81 MG CHEW (CHILDREN'S ASA) PO ONE (12:00)
[2022-06-28] MEDS ORDERED: CLOPIDOGREL 300 MG (PLAVIX) TABLET PO ONE (12:45)
[2022-06-28] MEDS ORDERED: ACETAMINOPHEN 325 MG TABLET PO PRN (14:00)
[2022-06-28] MEDS ORDERED: BISACODYL 10 MG SUPP (DULCOLAX) PR PRN (14:00)
[2022-06-28] MEDS ORDERED: diphenhydrAMINE 25 MG TAB (BENADRYL) PO PRN (14:00)
[2022-06-28] MEDS ORDERED: LACTULOSE SYRUP 10GM/15ML (ENULOSE) 30ML UDC PO PRN (14:00)
[2022-06-28] MEDS ORDERED: MELATONIN 3 MG TABLET PO PRN (14:00)
[2022-06-28] MEDS ORDERED: MILK OF MAGNESIA 400 MG/5 ML 30 ML UDC PO PRN (14:00)
[2022-06-28] MEDS ORDERED: CALCIUM CARBONATE 500 MG (TUMS) TAB.CHEW PO PRN (14:00)
[2022-06-28] MEDS ORDERED: diphenhydrAMINE 50 MG/ML INJ (BENADRYL) IVP PRN (14:00)
[2022-06-28] MEDS ORDERED: polyethylene glycoL POWDER 17 GM (MIRALAX) PACK PO PRN (14:00)
[2022-06-28] MEDS ORDERED: ONDANSETRON 4 MG (ZOFRAN) ORAL DISSOLVE TAB PO PRN (14:00)
[2022-06-28] MEDS ORDERED: ANTACID SUSP 30 ML UDC (MYLANTA) PO PRN (14:00)
[2022-06-28] MEDS ORDERED: ONDANSETRON 4 MG/2 ML (SDV) Z0FRAN IV PRN (14:00)
[2022-06-28 14:45] VITALS: BP 137/103
[2022-06-28 14:51] VITALS: BP 137/103
[2022-06-28 15:00] VITALS: BP 147/101
[2022-06-28 15:08] VITALS: BP 137/103
[2022-06-28] MEDS ORDERED: lisINopril 20 MG (PRINIVIL) TABLET PO NR (15:15)
--- NOTE | 2022-06-28 15:37 | Consultation-Cardiology ---
HPI-Cardiology Cardiology Consultation: Date of Consultation 06/28/22 Time Seen by a Provider: 15:00 Date of Admission 06-28-22 Attending Physician Dipesh Felton DO Admitting Physician Admitting Physician: Sheree Peter MD Attending Physician: Sheree Peter MD Consulting Physician James Morris MD HPI: Chief Complaint: Chest pain Mr. Dave is a 56 yr old male admitted to [facility] from the ED. He reports fever, chills, muscle aches, freq prod cough, n/v/d. He reports he has had right sided chest pain which is with inspiration and cough. He reports d/t not feeling well he has not taken his medications in the last 3 days. He reports he has a pacer/defib which was implanted in Aug [address] Hardy at [facility] d/t "a weak heart". He denies any palpitations. No c/o syncope or near syncope. He has chronic bilat LE swelling which is unchanged in the recent past. Review of Systems-Cardiology Review of Systems Constitutional: chills, fever, malaise Eyes: No vision change Ears/Nose/Throat: No epistaxis, No recent hearing loss Respiratory: As described under HPI Cardiovascular: As described under HPI Gastrointestinal: As described under HPI Genitourinary: No dysuria, No hematuria Musculoskeletal: back pain (chronic), joint pain Skin: No rash on exposed areas, No ulcerations on exposed areas Psychiatric/Neurological: anxiety; No depression, No seizure, No focal weakness, No syncope Hematologic: No bleeding abnormalities HEY-Jynhdd-Rvzocx Hx Patient Social History Smoking Status: Former Smoker Former smoker/When Quit: Jul 09, 1993 Have you traveled recently?: No Alcohol Use?: No Pt feels they are or have been: No Past Medical History PMH As described under Assessment. Family Medical History Family Medical History: Family h/o father having CAD, CABG and PPM. Allergies and Home Medications Allergies Coded Allergies: Penicillins (Unverified Allergy, Unknown, 03/02/12) diphenhydramine HCl (Verified Allergy, Unknown, 09/28/13) latex (Unverified Adverse Reaction, Mild, rash, 09/28/13) Patient Home Medication List Albuterol Sulfate (Albuterol Sulfate Hfa) 8.5 Gm Hfa.aer.ad, 8.5 GM IH, (Reported) Entered as Reported by: MAGGI AQUINO on 02/12/15 1801 Amlodipine Besylate (Amlodipine Besylate) 5 Mg Tablet, 5 MG PO DAILY, (Reported) Entered as Reported by: JAMAL MADRID on 02/18/11 1336 Cyclobenzaprine HCl (Cyclobenzaprine HCl) 10 Mg Tablet, 10 MG PO Q8H Prescribed by: MAURISIO KELLEY on 08/04/15 0633 Gabapentin (Gabapentin) 800 Mg Tablet, 800 MG PO, (Reported) Entered as Reported by: FREDDY ROSALES on 08/04/15 0526 Hydrocodone/Acetaminophen (Hydrocodone-Acetamin 5-325 mg) 5 Mg-325 Mg Tablet, 1 TAB PO Q6H PRN for PAIN-MODERATE (5-7) Prescribed by: SHERWIN ATKINS on 12/06/21 1446 Lidocaine (Lidocaine 5% Patch) 5 % Adh..patch, 1 EACH TP Q12H PRN for Neuropathic pain Prescribed by: HUMERA WARREN on 12/13/211827 Meloxicam (Mobic) 15 Mg Tablet, 15 MG PO DAILY Prescribed by: MAURISIO KELLEY on 08/04/15 0633 Methocarbamol (Methocarbamol) 500 Mg Tablet, 1,000 MG PO Q6-8HR Prescribed by: HUMERA WARREN on 12/13/211827 Metoprolol Tartrate (Metoprolol Tartrate 25 Mg) 25 Mg Tablet, 25 MG PO BID, (Reported) Entered as Reported by: JAMAL MADRID on 02/18/11 133 Prednisone (Prednisone) 20 Mg Tab, 20 MG PO DAILY Prescribed by: SHERWIN ATKINS on 12/06/21 1445 Tramadol HCl (Tramadol HCl) 50 Mg Tablet, 50 MG PO, (Reported) Entered as Reported by: FREDDY ROSALES on 08/04/15 0526 Trazodone Hcl (Desyrel) 100 Mg Tablet, 100 MG PO HS, (Reported) Entered as Reported by: DONALD BUSH on 09/28/13 1109 Physical Exam-Cardiology Physical Exam Vital Signs/I&O 06/28/22 06/28/22 06/29/22 06/29/22 21:13 23:35 01:14 03:32 Temp 36.5 36.5 Pulse 64 64 60 Resp 22 16 B/P (MAP) 131/65 (87) 137/85 (102) Pulse Ox 99 95 95 O2 Delivery Room Air Room Air Room Air O2 Flow Rate 0.00 FiO2 21 06/29/22 06/29/22 07:00 07:48 Temp 36.7 Pulse 64 64 Resp 14 B/P (MAP) 134/89 (104) Pulse Ox 97 O2 Delivery Room Air 06/29/22 00:00 Intake Total 1340 ml Output Total 1000 ml Balance 340 ml Capillary Refill : Less Than 3 Seconds Constitutional: AAO x 3, well-developed, well-nourished HEENT: PERRL, hearing is well preserved, oral hygience is good Neck: No carotid bruit; carotid pulses are 2 + bilaterally Respiratory: chest expansion is symmetric, chest is bilaterally symmetric, rhonchi, other (coarse breath sounds throughout) Cardiovascular: irregularly irregular; No JVD; S1 and S2 Gastrointestinal: No tender; soft, round, audible bowel sounds Extremities: other (mild to mod LE swelling bilat) Skin: No rash on exposed areas, No ulcerations on exposed areas Data Review Labs Laboratory Tests 06/28/22 08:47: White Blood Count 5.2, Red Blood Count 5.07, Hemoglobin 14.5, Hematocrit 41, Mean Corpuscular Volume 82, Mean Corpuscular Hemoglobin 29, Mean Corpuscular Hemoglobin Concent 35, Red Cell Distribution Width 14.6H, Platelet Count 97L, Mean Platelet Volume 11.5, Immature Granulocyte % (Auto) 0, Neutrophils (%) (Auto) 76H, Lymphocytes (%) (Auto) 13, Monocytes (%) (Auto) 10, Eosinophils (%) (Auto) 0, Basophils (%) (Auto) 1, Neutrophils # (Auto) 4.0, Lymphocytes # (Auto) 0.7L, Monocytes # (Auto) 0.5, Eosinophils # (Auto) 0.0, Basophils # (Auto) 0.0, Immature Granulocyte # (Auto) 0.0, Percent Immature Platelet Fraction 10.1H, Prothrombin Time 13.7, INR Comment 1.0, Activated Partial Thromboplast Time 32, D-Dimer 1.13H, Sodium Level 133L, Potassium Level 3.3L, Chloride Level 101, Carbon Dioxide Level 21, Anion Gap 11, Blood Urea Nitrogen 8, Creatinine 0.93, Estimat Glomerular Filtration Rate 96, BUN/Creatinine Ratio 9, Glucose Level 170H, Lactic Acid Level 3.04*H, Calcium Level 8.3L, Corrected Calcium 8.5, Magnesium Level 1.8, Total Bilirubin 1.0, Aspartate Amino Transf (AST/SGOT) 18, Alanine Aminotransferase (ALT/SGPT) 18, Alkaline Phosphatase 64, Troponin I 0.065H, B-Type Natriuretic Peptide 363.8H, Total Protein 6.7, Albumin 3.7, Procalcitonin 0.28H, Influenza Type A (RT-PCR) DetectedH, Influenza Type B (RT- PCR) Not Detected, SARS-CoV-2 RNA (RT-PCR) Not Detected 06/28/22 09:23: Urine Color YELLOW, Urine Clarity CLEAR, Urine pH 6.0, Urine Specific [place] >=1.030, Urine Protein TRACEH, Urine Glucose (UA) TRACEH, Urine Ketones NEGATIVE, Urine Nitrite NEGATIVE, Urine Bilirubin NEGATIVE, Urine Urobilinogen 4.0, Urine Leukocyte Esterase NEGATIVE, Urine RBC (Auto) TRACE-IH, Urine RBC 0- 2, Urine WBC 0-2, Urine Squamous Epithelial Cells 0-2, Urine Crystals NONE, Urine Bacteria TRACE, Urine Casts NONE, Urine Mucus SMALLH, Urine Culture Indicated NO 06/28/22 11:08: Group A Streptococcus Screen NEGATIVE 06/28/22 11:25: Lactic Acid Level 1.32 06/28/22 12:18: Troponin I 0.075H 06/29/22 05:32: White Blood Count 5.2, Red Blood Count 4.86, Hemoglobin 13.9, Hematocrit 40, Mean Corpuscular Volume 82, Mean Corpuscular Hemoglobin 29, Mean Corpuscular Hemoglobin Concent 35, Red Cell Distribution Width 14.5, Platelet Count 94L, Mean Platelet Volume 12.1, Immature Granulocyte % (Auto) 0, Neutrophils (%) (Auto) 73, Lymphocytes (%) (Auto) 16, Monocytes (%) (Auto) 10, Eosinophils (%) (Auto) 0, Basophils (%) (Auto) 0, Neutrophils # (Auto) 3.8, Lymphocytes # (Auto) 0.8L, Monocytes # (Auto) 0.5, Eosinophils # (Auto) 0.0, Basophils # (Auto) 0.0, Immature Granulocyte # (Auto) 0.0, Percent Immature Platelet Fraction 10.9H, Sodium Level 139, Potassium Level 3.7, Chloride Level 107, Carbon Dioxide Level 22, Anion Gap 10, Blood Urea Nitrogen 12, Creatinine 0.79, Estimat Glomerular Filtration Rate 104, BUN/Creatinine Ratio 15, Glucose Level 136H, Calcium Level 8.7 Radiology NAME: KIRK DAVE [facility] REC#: [id number] PT STATUS: REG ER : 1965 PHYSICIAN: GIOVANA MCCURDY MD ADMIT DATE: 06/28/22/ER Draft Date of Exam:06/28/22 CT ANGIO CHEST W CLINICAL INDICATION: Patient with elevated d-dimer and shortness of air. EXAM: CT angiogram of the chest performed with 75 cc Omnipaque 350 IV contrast. Coronal and oblique MIP images of the vasculature were created to better evaluate anatomy. Auto Exposure Controls were utilized during the CT exam to meet ALARA standards for radiation dose reduction. COMPARISON: None. FINDINGS: There is no evidence of pulmonary embolism. There is no thoracic aortic aneurysm. There is no significant contrast within the thoracic aorta limiting evaluation. There is interval development of patchy nodular areas of consolidation and adjacent groundglass opacification throughout the left upper lobe and left lower lobe. There is no pleural effusion. There are small nodular areas involving the anterior right lower lobe. There is superimposed mild atelectasis involving the posterior aspects of both lungs. There is bronchial wall thickening seen bilaterally which can be seen with bronchitis. There is mediastinal and hilar lymphadenopathy. There is no axillary lymphadenopathy. There is no pleural effusion pneumothorax. The mediastinal structures and heart shows no significant abnormality. A cardiac pacemaker is seen overlying the left chest. The visualized portions of the upper abdominal structures are unremarkable. There are degenerative spurs involving the thoracic spine. IMPRESSION: 1: There is no evidence of pulmonary embolism. There is no thoracic aortic aneurysm. 2: There are patchy areas of infiltrate and groundglass opacification involving the left upper lobe, left lower lobe, and anterior right lower lobe region. There is also bronchial wall thickening seen bilaterally. These findings are concerning for pneumonia and bronchitis. 3: There is mediastinal and hilar lymphadenopathy. Dictated on workstation # [id number] Dict: 06/28/22 1022 Trans: 06/28/22 1032 [id number] Interpreted by: DONOVAN MADRIGAL MD Electronically signed by: NAME: KIRK DAVE [facility] REC#: [id number] PT STATUS: REG ER : 1965 PHYSICIAN: GIOVANA MCCURDY MD ADMIT DATE: 06/28/22/ER Draft Date of Exam:06/28/22 CHEST 1 VIEW, AP/PA ONLY INDICATION: Shortness of air, cough, fever. COMPARISON: 12/13/2021 FINDINGS: Cardiac support device stable. Heart size stable. No focal consolidation, effusion or pneumothorax. IMPRESSION: No acute appearing abnormality. Dictated on workstation # [id number] Dict: 06/28/22932 Trans: 06/28/22938 [id number] Interpreted by: CARLOS CHIN Electronically signed by: ECG Impression ECG Comment V-paced A/P-Cardiology Assessment/Admission Diagnosis Flu A (+) Pneumonia with sepsis - management per medical services Elevated troponin - likely Type 2 AK secondary to hypoxia and sepsis PPM/AICD - implanted in Aug [address] Hardy d/t "weak heart" per pt report - states device checked remotely last week and was told by Dr. Hardy's office it was functioning normally Reports AK 2 yrs ago - Managed by Dr. Jeffery - denies any cardiac cath or coronary intervention Chronic systolic CHF - per pt reports of LVEF at 27% Cardiomyopathy - likely dilated per pt report Reports h/o PAF - states he follows with Dr. Hardy - no OAC - only ASA 81mg (which he has not been compliant with) Denies sleep apnea HTN HLD H/O ETOH abuse - quit in Aug 2021 following device implant H/O tobaccoism - quit 20 yrs ago Chronic back/hip pain H/O daily marijuana use - cessation advised Discussion and Recomendations Flu A with pnuemonia - management per medical services Minimally elevated troponin - likely Type 2 AK secondary to transient hypoxia and sepsis Pacer/AICD in place - V-paced - continue tele Cardiomyopathy - continue home regimen of JOCELYN (-), Aldactone, Lasix, BB Monitor lab closely - replace electrolytes Continue home statin Advise compliance with medications (has not taken meds in 3 days) Advise cessation of marijuana use Request records from Lisa (Dr. Hardy and Dr. Jeffery) Continue ASA Further recs will be based on his hospital course We would like to thank medical services for this consult TRENA MACIAS Jun 28, 2022 15:37
[2022-06-28] MEDS: LACTATED RINGERS 1,000 ML IV SCH (15:50)
[2022-06-28 16:00] VITALS: BP 157/68
--- NOTE | 2022-06-28 18:30 | Consultation-Cardiology ---
HPI-Cardiology Cardiology Consultation: Date of Consultation 06/28/22 Time Seen by a Provider: 18:15 Date of Admission Attending Physician Dipesh Felton DO Admitting Physician Admitting Physician: Sheree Peter MD Attending Physician: Sheree Peter MD Consulting Physician LORENA AGUILAR MD, MA, FACP, FACC, [facility], CCDS HPI: Chief Complaint: Reason for Card consult: Elevated troponin Mr. Dave is a 56 yr old male admitted to [facility] from the ED. He reports fever, chills, muscle aches, freq prod cough, n/v/d. He does not report any chest pain other than some right sided chest pain which is with inspiration and cough. He reports d/t not feeling well he has not taken his medications in the last 3 days. He reports he has a pacer/defib which was implanted in [address] Hardy at [facility] d/t "a weak heart". He denies any palpitations. No c/o syncope or near syncope. He has chronic bilat LE swelling which is unchanged in the recent past. Review of Systems-Cardiology Review of Systems Constitutional: chills, fever, malaise Eyes: No vision change Ears/Nose/Throat: No epistaxis, No recent hearing loss Respiratory: As described under HPI Cardiovascular: As described under HPI Gastrointestinal: As described under HPI Genitourinary: No dysuria, No hematuria Musculoskeletal: back pain (chronic), joint pain Skin: No rash on exposed areas, No ulcerations on exposed areas Psychiatric/Neurological: anxiety; No depression, No seizure, No focal weakness, No syncope Hematologic: No bleeding abnormalities FLT-Rruphj-Wqovaj Hx Patient Social History Smoking Status: Former Smoker Former smoker/When Quit: Jul 09, 1993 Have you traveled recently?: No Alcohol Use?: No Pt feels they are or have been: No Past Medical History PMH As described under Assessment. Family Medical History Family Medical History: Family h/o father having CAD, CABG and PPM. Allergies and Home Medications Allergies Coded Allergies: Penicillins (Unverified Allergy, Unknown, 03/02/12) diphenhydramine HCl (Verified Allergy, Unknown, 09/28/13) latex (Unverified Adverse Reaction, Mild, rash, 09/28/13) Patient Home Medication List Home Medication List Reviewed: Yes Albuterol Sulfate (Albuterol Sulfate Hfa) 8.5 Gm Hfa.aer.ad, 8.5 GM IH, (Reported) Entered as Reported by: MAGGI AQUINO on 02/12/15 180 Amlodipine Besylate (Amlodipine Besylate) 5 Mg Tablet, 5 MG PO DAILY, (Reported) Entered as Reported by: JAMAL MADRID on 02/18/11 1336 Cyclobenzaprine HCl (Cyclobenzaprine HCl) 10 Mg Tablet, 10 MG PO Q8H Prescribed by: MAURISIO KELLEY on 08/04/15 0633 Gabapentin (Gabapentin) 800 Mg Tablet, 800 MG PO, (Reported) Entered as Reported by: FREDDY ROSALES on 08/04/15 05 Hydrocodone/Acetaminophen (Hydrocodone-Acetamin 5-325 mg) 5 Mg-325 Mg Tablet, 1 TAB PO Q6H PRN for PAIN-MODERATE (5-7) Prescribed by: SHERWIN ATKINS on 12/06/21 1446 Lidocaine (Lidocaine 5% Patch) 5 % Adh..patch, 1 EACH TP Q12H PRN for Neurop athic pain Prescribed by: HUMERA WARREN on 12/13/21 182 Meloxicam (Mobic) 15 Mg Tablet, 15 MG PO DAILY Prescribed by: MAURISIO KELLEY on 08/04/15 06 Methocarbamol (Methocarbamol) 500 Mg Tablet, 1,000 MG PO Q6-8HR Prescribed by: HUMERA WARREN on 12/13/21 1828 Metoprolol Tartrate (Metoprolol Tartrate 25 Mg) 25 Mg Tablet, 25 MG PO BID, (Reported) Entered as Reported by: JAMAL MADRID on 02/18/11 1336 Prednisone (Prednisone) 20 Mg Tab, 20 MG PO DAILY Prescribed by: SHERWIN ATKINS on 12/06/21 1445 Tramadol HCl (Tramadol HCl) 50 Mg Tablet, 50 MG PO, (Reported) Entered as Reported by: FREDDY ROSALES on 08/04/15 0526 Trazodone Hcl (Desyrel) 100 Mg Tablet, 100 MG PO HS, (Reported) Entered as Reported by: DONALD BUSH on 09/28/13 1109 Physical Exam-Cardiology Physical Exam Vital Signs/I&O 06/28/22 06/28/22 06/28/2221/22 08:40 13:49 14:45 14:51 Temp 37.7 37.7 36.1 Pulse 114 92 77 75 Resp 16 16 8 18 B/P (MAP) 164/113 (130) 131/86 137/103 (114) 137/103 (114) Pulse Ox 94 95 94 94 O2 Delivery Room Air Room Air Room Air Room Air 06/28/22 06/28/22 06/28/22 06/28/22 14:56 15:00 15:08 16:00 Temp 36.1 36.4 Pulse 79 74 75 78 Resp 8 14 B/P (MAP) 147/101 (116) 157/68 (97) Pulse Ox 94 94 95 O2 Delivery Room Air Room Air Capillary Refill : Less Than 3 Seconds Constitutional: AAO x 3, well-developed, well-nourished HEENT: PERRL, hearing is well preserved, oral hygience is good Neck: No carotid bruit; carotid pulses are 2 + bilaterally Respiratory: chest expansion is symmetric, chest is bilaterally symmetric, rhonchi, other (coarse breath sounds throughout) Cardiovascular: irregularly irregular; No JVD; S1 and S2 Gastrointestinal: No tender; soft, round, audible bowel sounds Extremities: other (mild to mod LE swelling bilat) Skin: No rash on exposed areas, No ulcerations on exposed areas Data Review Labs Laboratory Tests 06/28/22 08:47: White Blood Count 5.2, Red Blood Count 5.07, Hemoglobin 14.5, Hematocrit 41, Mean Corpuscular Volume 82, Mean Corpuscular Hemoglobin 29, Mean Corpuscular Hemoglobin Concent 35, Red Cell Distribution Width 14.6H, Platelet Count 97L, Mean Platelet Volume 11.5, Immature Granulocyte % (Auto) 0, Neutrophils (%) (Auto) 76H, Lymphocytes (%) (Auto) 13, Monocytes (%) (Auto) 10, Eosinophils (%) (Auto) 0, Basophils (%) (Auto) 1, Neutrophils # (Auto) 4.0, Lymphocytes # (Auto) 0.7L, Monocytes # (Auto) 0.5, Eosinophils # (Auto) 0.0, Basophils # (Auto) 0.0, Immature Granulocyte # (Auto) 0.0, Percent Immature Platelet Fraction 10.1H, Prothrombin Time 13.7, INR Comment 1.0, Activated Partial Thromboplast Time 32, D-Dimer 1.13H, Sodium Level 133L, Potassium Level 3.3L, Chloride Level 101, Carbon Dioxide Level 21, Anion Gap 11, Blood Urea Nitrogen 8, Creatinine 0.93, Estimat Glomerular Filtration Rate 96, BUN/Creatinine Ratio 9, Glucose Level 170H, Lactic Acid Level 3.04*H, Calcium Level 8.3L, Corrected Calcium 8.5, Magnesium Level 1.8, Total Bilirubin 1.0, Aspartate Amino Transf (AST/SGOT) 18, Alanine Aminotransferase (ALT/SGPT) 18, Alkaline Phosphatase 64, Troponin I 0.065H, B-Type Natriuretic Peptide 363.8H, Total Protein 6.7, Albumin 3.7, Procalcitonin 0.28H, Influenza Type A (RT-PCR) DetectedH, Influenza Type B (RT- PCR) Not Detected, SARS-CoV-2 RNA (RT-PCR) Not Detected 06/28/22 09:23: Urine Color YELLOW, Urine Clarity CLEAR, Urine pH 6.0, Urine Specific [place] >=1.030, Urine Protein TRACEH, Urine Glucose (UA) TRACEH, Urine Ketones NEGATIVE, Urine Nitrite NEGATIVE, Urine Bilirubin NEGATIVE, Urine Urobilinogen 4.0, Urine Leukocyte Esterase NEGATIVE, Urine RBC (Auto) TRACE-IH, Urine RBC 0- 2, Urine WBC 0-2, Urine Squamous Epithelial Cells 0-2, Urine Crystals NONE, Urine Bacteria TRACE, Urine Casts NONE, Urine Mucus SMALLH, Urine Culture Indicated NO 06/28/22 11:08: Group A Streptococcus Screen NEGATIVE 06/28/22 11:25: Lactic Acid Level 1.32 06/28/22 12:18: Troponin I 0.075H A/P-Cardiology Assessment/Admission Diagnosis Flu A (+) and associated pneumonia with sepsis - management per Medical services Elevated troponin - likely Type 2 AL secondary to hypoxia and sepsis H/o dilated cardiomyopathy (per patient report) and chronic systolic CHF wit LVEF 27% (patient report) PPM/AICD - implanted in [place] [address] Hardy d/t "weak heart" per pt report - states device checked remotely last week and was told by Dr. 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 Hardy - no OAC - only ASA 81mg (which he has not been compliant with) Denies sleep apnea HTN HLD H/O ETOH abuse - quit in Aug 2021 following device implant H/O tobaccoism - quit 20 yrs ago Chronic back/hip pain H/O daily marijuana use - cessation advised Discussion and Recomendations * Try to obtain cardiac records * Treat with ASA and beta-viola * Monitor for arrhythmia * DVT prophylaxis with enoxaparin * Eliquis is PAF seen * Advised cessatin of marijuana use * Contine home regimen of JOCELYN (-), Aldactone, Lasix, BB, and statin * Monitor labs * Hospitalist / Med svce managing Flu and pneumonia and sepsis LORENA AGUILAR MD FACP FAC CCDS Jun 28, 2022 18:30
[2022-06-28] MEDS: GABAPENTIN 300 MG (NEURONTIN) CAP PO SCH (20:51)
[2022-06-28] MEDS: SENNOSIDES 8.6 MG (SENOKOT) TAB PO SCH (21:00)
[2022-06-28] MEDS ORDERED: ENOXAPARIN 40 MG/0.4 ML (LOVENOX) SYR SC SCH (21:00)
[2022-06-28] MEDS: DOCUSATE SODIUM 100 MG (COLACE) CAP PO SCH (21:00)
[2022-06-28] MEDS: RT-ALBUTEROL/IPRATROPIUM 3 ML (DUONEB) VIAL INH SCH (21:16)
[2022-06-28 23:35] VITALS: BP 131/65
[2022-06-29] MEDS: LACTATED RINGERS 1,000 ML IV SCH (02:05)
[2022-06-29 03:32] VITALS: BP 137/85
[2022-06-29 05:50] LABS: POTASSIUM 3.7 MMOL/L (3.6-5.0)
[2022-06-29 05:52] LABS: CALCIUM 8.7 MG/DL (8.5-10.1)
[2022-06-29 05:56] LABS: CREATININE SERUM 0.79 MG/DL (0.60-1.30)
[2022-06-29 05:59] LABS: MEAN CORPUSCULAR HEMOGLOBIN 29 pg (25-34)
[2022-06-29 06:01] LABS: BASOPHILS % (AUTO) 0 % (0-10); EOSINOPHILS % (AUTO) 0 % (0-10); HEMATOCRIT 40 % (40-54); HEMOGLOBIN 13.9 g/dL (13.3-17.7); LYMPHOCYTES # (AUTO) 0.8 10^3/uL (1.0-4.0); LYMPHOCYTES % (AUTO) 16 % (12-44); MEAN CORPUSCULAR HGB CONC 35 g/dL (32-36); MEAN CORPUSCULAR VOLUME 82 fL (80-99); MEAN PLATELET VOLUME 12.1 fL (9.0-12.2); MONOCYTES # (AUTO) 0.5 10^3/uL (0.0-1.0); MONOCYTES % (AUTO) 10 % (0-12); NEUTROPHILS # (AUTO) 3.8 10^3/uL (1.8-7.8); NEUTROPHILS % (AUTO) 73 % (42-75); PLATELET COUNT 94 10^3/uL (130-400); WHITE BLOOD COUNT 5.2 10^3/uL (4.3-11.0)
[2022-06-29 07:48] VITALS: BP 134/89
--- NOTE | 2022-06-29 08:17 | Cardiology Progress Note ---
Subjective Date Seen by Provider: Jun 29, 2022 Time Seen by Provider: 08:14 Subjective/Events-last exam Patient was seen at bedside, laying down comfortably, feeling better, requesting to go home Review of Systems General: No Chills, No Night Sweats, No Fatigue, No Malaise, No Appetite, No Other HEENT: No Head Aches, No Visual Changes, No Eye Pain, No Ear Pain, No D ysphasia, No Sinus Congestion, No Post Nasal Drip, No Sore Throat, No Other Pulmonary: No Dyspnea, No Cough, No Pleuritic Chest Pain, No Other Cardiovascular: No: Chest Pain, Palpitations, Orthopnea, Paroxysmal Noc. Dyspnea, Edema, Lt Headedness, Other Focused Exam Lactate Level 06/28/22 08:47: Lactic Acid Level 3.04*H 06/28/22 11:25: Lactic Acid Level 1.32 Objective-Cardiology Exam Last Set of Vital Signs Vital Signs 06/28/22 06/29/22 21:13 07:48 Temp 36.7 Pulse 64 Resp 14 B/P (MAP) 134/89 (104) Pulse Ox 97 O2 Delivery Room Air O2 Flow Rate 0.00 FiO2 21 I&O Intake and Output 06/29/22 00:00 Intake Total 2390 ml Output Total 1000 ml Balance 1390 ml Intake Oral 290 ml IV Total 2100 ml Output Urine Total 1000 ml # Voids 1 # Bowel Movements 1 Daily Weight Change No General: Alert, Oriented X3, Cooperative HEENT: Atraumatic, PERRLA Neck: Supple, No JVD, No Thyromegaly Lungs: Clear to Auscultation, Normal Air Movement Heart: Regular Rate, Normal S1, Normal S2, No Murmurs Abdomen: Normal Bowel Sounds, Soft, No Tenderness, No Hepatosplenomegaly, No Masses Extremities: No Clubbing, No Cyanosis, No Edema, Normal Pulses, No Tenderness/Swelling Skin: No Rashes, No Breakdown, No Significant Lesion Neuro: Normal Gait, Normal Speech, Strength at 5/5 X4 Ext, Normal Tone, Sensation Intact Psych/Mental Status: Mental Status NL, Mood NL Results Lab Laboratory Tests 06/28/22 08:47 06/29/22 05:32 A/P-Cardiology Admission Diagnosis Influenza A Pneumonia Sepsis Congestive heart failure Assessment/Plan Influenza A, pneumonia and sepsis Managed by medical service Reporting improvement feeling better Mild elevation in troponin, type II myocardial infarction probably secondary to hypoxia and sepsis, conservative management is recommended Congestive heart failure, dilated cardiomyopathy, chronic left ventricular systolic dysfunction with ejection fraction around 30% History of permanent pacemaker/ICD implanted by Dr. Hardy in August 2021 Coronary artery disease, questionable vague history of myocardial infarction in the remote past, has been following with Dr. Laguna. Did not have a cardiac jerald terization Questionable history of paroxysmal atrial fibrillation, not maintained on oral anticoagulation only aspirin Has been following with financial underwriter Dr. Marlow in [place] Hypertension, monitor blood pressure Hyperlipidemia, monitor lipids History of alcoholism he has stopped in August 2021 History of tobaccoism has stopped over 20 years ago History of back pain History of daily use of marijuana ELISSA COLEMAN MD Jun 29, 2022 08:17
[2022-06-29] MEDS: GABAPENTIN 300 MG (NEURONTIN) CAP PO SCH (08:36)
[2022-06-29] MEDS: DOCUSATE SODIUM 100 MG (COLACE) CAP PO SCH (08:36)
[2022-06-29] MEDS: SENNOSIDES 8.6 MG (SENOKOT) TAB PO SCH (08:36)
[2022-06-29] MEDS: RT-ALBUTEROL/IPRATROPIUM 3 ML (DUONEB) VIAL INH SCH (08:44)
[2022-06-29] MEDS ORDERED: lisINopril 20 MG (PRINIVIL) TABLET PO SCH (09:00)
[2022-06-29] MEDS ORDERED: CLOPIDOGREL 75 MG (PLAVIX) TABLET PO SCH (09:00)
[2022-06-29] MEDS ORDERED: SPIRONOLACTONE 25 MG (ALDACTONE) TAB PO SCH (09:00)
[2022-06-29] MEDS ORDERED: ASPIRIN 81 MG CHEW (CHILDREN'S ASA) PO SCH (09:00)
[2022-06-29] MEDS ORDERED: LEVO750T PO (09:51)
[2022-06-29 10:34] VITALS: BP 134/89
--- NOTE | 2022-06-29 11:01 | Short Stay Summary-Hospitalist ---
History of Present Illness HPI/Chief Complaint Rommel Dave is a 56 year old male with PMH HTN, HLD, HFrEF s/p AICD, who presented with shortness of breath. He was also having fevers. He generally felt unwell. He was having a cough. He also reported some pleuritic chest pain. Upon my exam, he is feeling much better. He is not short of breath. He denies chest pain. He has been able to eat breakfast. He denies nausea and vomiting. He wants to go home. Source: patient Exam Limitations: no limitations Date Seen 06/29/22 Time Seen by a Provider: 09:45 Attending Physician Dipesh Felton DO PCP Admitting Physician: Sheree Anderson MD Attending Physician: Sheree Anderson MD Referring Physician Date of Admission Jun 28, 2022 at 13:00 Home Medications & Allergies Home Medications Reviewed patient Home Medication Reconciliation performed by pharmacy medication reconciliations certified pharmacy technician and/or nursing. Patients Allergies have been reviewed. Allergies Allergies Coded Allergies Penicillins (Unverified Allergy, Unknown, 03/02/12) diphenhydramine HCl (Verified Allergy, Unknown, 09/28/13) latex (Unverified Adverse Reaction, Mild, rash, 09/28/13) Past Khxlgzm-Vmoqfa-Meqbri Hx Patient Social History Tobacco Use?: No Smoking Status: Former Smoker Smokeless Tobacco Frequency: Never a User Use of E-Cig and/or Vaping dev: No Substance use?: No Alcohol Use?: No Additional Alcohol Comments: PAST HISTORTY Pt feels they are or have been: No Immunizations Up To Date First/Initial COVID19 Vaccinat: UNKNOWN Hepatitis A: No Hepatitis B: No Seasonal Allergies Seasonal Allergies: No Current Status Advance Directives: No Communicates: Verbally Primary Language: Bhutanese Preferred Spoken Language: Bhutanese Is interpretation needed?: No Implanted or Applied Medical D: None Past Medical History Surgeries: Appendectomy, Cardiac, Orthopedic Asthma, COPD Hypertension Chronic Back Pain Sleep Difficulties Adverse Reaction/Blood Tranf: No Family Medical History No Pertinent Family Hx Review of Systems Constitutional: chills, fever, malaise Respiratory: cough, short of breath Cardiovascular: chest pain Gastrointestinal: no symptoms reported Physical Exam Physical Exam Vital Signs Vital Signs - First Documented 06/28/22 06/28/22 08:40 21:13 Temp 37.7 Pulse 114 Resp 16 B/P (MAP) 164/113 (130) Pulse Ox 94 O2 Delivery Room Air O2 Flow Rate 0.00 FiO2 21 Capillary Refill : Less Than 3 Seconds Height, Weight, BMI Height: 5'7" Weight: 200lbs. 6.4oz. 90.219774ls; 32.11 BMI Method:Estimated General Appearance: No Apparent Distress, Obese HEENT: PERRL/EOMI, Pharynx Normal Neck: Normal Inspection, Supple Respiratory: Lungs Clear, Normal Breath Sounds, No Respiratory Distress Cardiovascular: Regular Rate, Rhythm, No Edema Gastrointestinal: Normal Bowel Sounds, Non Tender, Soft Extremity: Normal Inspection, No Pedal Edema Neurologic/Psychiatric: Alert, Oriented x3, No Motor/Sensory Deficits Skin: Normal Color, Warm/Dry Results Results/Procedures Labs Laboratory Tests 06/28/22 08:47 06/29/22 05:32 Patient resulted labs reviewed. Imaging: Reviewed Imaging Report Short Stay Diagnosis Discharge Diagnosis-Short Stay Admission Diagnosis Elevated troponin Final Discharge Diagnosis Likely NSTEMI type II due to pneumonia and influenza A infections Conclusion Plan NSTEMI type II Pneumonia Influenza A Lactic acidosis Dehydration Chronic HFrEF s/p AICD HTN HLD Not septic Received gentle IV fluids and improved Levaquin for pneumonia Outside window for Tamiflu Cardiology consulted, conservative management recommended Follow up with PCP in about a week Diagnosis/Problems Diagnosis/Problems (1) Elevated troponin Status: Acute (2) Influenza A Status: Acute (3) PNA (pneumonia) Status: Acute (4) Chronic HFrEF (heart failure with reduced ejection fraction) Status: Chronic (5) AICD (automatic cardioverter/defibrillator) present Status: Chronic SHEREE ANDERSON MD Jun 29, 2022 11:01
== END 2022-06-29 09:50 | disposition home or self-care (01) ==
LOC: EDUNIT# 08:39 → ER 08:42 → CSD 13:00 → UNDOADMOB 13:00 → CSD 14:53 → UNDODISOB 06-29 10:28
PROVIDERS: ADMIT Internal Medicine; ATTEND Internal Medicine
DX: A41.89 Other specified sepsis (principal); I50.22 Chronic systolic (congestive) heart failure; J10.00 Influenza due to other identified influenza virus with unspecified type of pneumonia; I25.10 Atherosclerotic heart disease of native coronary artery without angina pectoris; I11.0 Hypertensive heart disease with heart failure; F12.11 Cannabis abuse, in remission; E78.5 Hyperlipidemia, unspecified; Z87.891 Personal history of nicotine dependence; Z95.810 Presence of automatic (implantable) cardiac defibrillator
CPT/HCPCS: 36415; 71045; 71275; 80048; 80053; 81000; 83605; 83735; 83880; 84145; 84484; 85025; 85379; 85610; 85730; 87040; 87088; 87430; 87636; 93005; 94640; 96361; 96372

== ENCOUNTER 2022-10-27 09:52 | Observation (INO) | payer OTHER, MEDICAID ==
[~2022-10-27] VITALS: Ht 170 cm; Wt 87.0 kg
[~2022-10-27 09:52] MED LIST changes: +LEVO750T PO
--- NOTE | 2022-10-27 10:23 | ED Chest Pain ---
General Chief Complaint: Chest Pain Stated Complaint: CHEST PAINS | DEFIBRILLATOR AND PACEMAKER Nursing Triage Note: PT AMB TO RM 8 WITH C/O CP, SOB AND COUGH SENT OVER FROM [facility]. PT TOOK ASA 324MG FACILITIES ASSISTANT Source: patient Exam Limitations: no limitations History of Present Illness Date Seen by Provider: Oct 27, 2022 Time Seen by Provider: 10:10 Initial Comments Patient is a 56-year-old male who presents to the emergency room with a chief complaint of feeling short of breath more so in the last 2 to 3 days than usual. He is also developed some left-sided chest pain and he also complains of his pacemaker site being swollen. He states that the pain radiates into his shoulder and makes his arm feel "tingly". Patient went to [facility] this morning and was sent from there due to the symptoms. He states he takes his medications daily as directed. 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 He states he has had his pacer defibrillator for about a year. He denies any recent fevers or chills. He has had a productive cough, whitish-yellow sputum. He denies abdominal pain, nausea, vomiting or diarrhea. No swelling in his legs. His states that he was unable to sleep last night and got up at 3 AM this morning due to his shortness of breath. He denies having any cardiac stents. He is not a diabetic. 324 mg of aspirin prior to arrival at the clinic. No left-sided chest pain at this moment. Timing/Duration: 2-3 days Severity/Quality: pressure Location: other (left chest/flank) Radiation: arms (Left shoulder left arm) Activities at Onset: none Prior CP/Workup: cardiac cath, echocardiography ASA po FACILITIES ASSISTANT: Yes NTG SL FACILITIES ASSISTANT: No Associated Symptoms: shortness of breath Allergies and Home Medications Allergies Coded Allergies: Penicillins (Unverified Allergy, Unknown, 03/02/12) diphenhydramine HCl (Verified Allergy, Unknown, 09/28/13) latex (Unverified Adverse Reaction, Mild, rash, 09/28/13) Patient Home Medication List Home Medication List Reviewed: Yes Albuterol Sulfate (Albuterol Sulfate Hfa) 8.5 Gm Hfa.aer.ad, 8.5 GM IH, (Reported) Entered as Reported by: MAGGI AQUINO on 02/12/15 2731 Amlodipine Besylate (Amlodipine Besylate) 5 Mg Tablet, 5 MG PO DAILY, (Reported) Entered as Reported by: JAMAL MADRID on 02/18/11 1336 Cyclobenzaprine HCl (Cyclobenzaprine HCl) 10 Mg Tablet, 10 MG PO Q8H Prescribed by: MAURISIO KELLEY on 08/04/15 06 Gabapentin (Gabapentin) 800 Mg Tablet, 800 MG PO, (Reported) Entered as Reported by: FREDDY ROSALES on 08/04/15 0526 Hydrocodone/Acetaminophen (Hydrocodone-Acetamin 5-325 mg) 5 Mg-325 Mg Tablet, 1 TAB PO Q6H PRN for PAIN-MODERATE (5-7) Prescribed by: SHERWIN ATKINS on 12/06/21 1446 Levofloxacin (Levofloxacin) 750 Mg Tablet, 750 MG PO DAILY@1100 Prescribed by: CINDY ANDERSON on 06/29/22 0951 Lidocaine (Lidocaine 5% Patch) 5 % Adh..patch, 1 EACH TP Q12H PRN for Neuropathic pain Prescribed by: HUMERA WARREN on 12/13/21 182 Meloxicam (Mobic) 15 Mg Tablet, 15 MG PO DAILY Prescribed by: MAURISIO KELLEY on 08/04/15 0633 Methocarbamol (Methocarbamol) 500 Mg Tablet, 1,000 MG PO Q6-8HR Prescribed by: HUMERA WARREN on 12/13/211827 Metoprolol Tartrate (Metoprolol Tartrate 25 Mg) 25 Mg Tablet, 25 MG PO BID, (Reported) Entered as Reported by: JAMAL MADRID on 02/18/11 1336 Prednisone (Prednisone) 20 Mg Tab, 20 MG PO DAILY Prescribed by: SHERWIN ATKINS on 12/06/21 1445 Tramadol HCl (Tramadol HCl) 50 Mg Tablet, 50 MG PO, (Reported) Entered as Reported by: FREDDY ROSALES on 08/04/15 0526 Trazodone Hcl (Desyrel) 100 Mg Tablet, 100 MG PO HS, (Reported) Entered as Reported by: DONALD BUSH on 09/28/13 1109 Review of Systems Review of Systems Constitutional: see HPI EENTM: No Symptoms Reported Respiratory: Cough, Shortness of Air Cardiovascular: Chest Pain, Other (swelling in left upper chest around pacemaker site over the last couple of days) Gastrointestinal: No Symptoms Reported Genitourinary: No Symptoms Reported Musculoskeletal: no symptoms reported Skin: no symptoms reported Psychiatric/Neurological: No Symptoms Reported Past Icfnale-Eyucmp-Wqkhfo Hx Patient Social History Tobacco Use?: No Substance use?: Yes Substance type: Marijuana Alcohol Use?: No Pt feels they are or have been: No Immunizations Up To Date Influenza Vaccine Up-to-Date: No; Not Current First/Initial COVID19 Vaccinat: NO Seasonal Allergies Seasonal Allergies: No Past Medical History Surgery/Hospitalization HX: pacemaker, hypertension, high cholesterol, asthma, Appendectomy, Cardiac, Orthopedic Asthma, COPD Hypertension Reproductive Disorders: No Chronic Back Pain Sleep Difficulties Adverse Reaction/Blood Tranf: No Family Medical History No Pertinent Family Hx Physical Exam Vital Signs Vital Signs - First Documented 10/27/22 10/27/22 09:57 15:00 Temp 36.4 Pulse 102 Resp 22 B/P (MAP) 155/113 (127) Pulse Ox 99 Capillary Refill : NONE Height, Weight, BMI Height: 5'7" Weight: 200lbs. 6.4oz. 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 II-XII Norm as Tested Skin: Normal Color, Warm/Dry Progress/Results/Core Measures Results/Orders Lab Results Laboratory Tests Test 10/27/22 10:10 10/27/22 13:00 Range/Units White Blood Count 7.5 4.3-11.0 10^3/uL Red Blood Count 5.25 4.30-5.52 10^6/uL Hemoglobin 14.9 13.3-17.7 g/dL Hematocrit 44 40-54 % Mean Corpuscular Volume 83 80-99 fL Mean Corpuscular Hemoglobin 28 25-34 pg Mean Corpuscular Hemoglobin Concent 34 32-36 g/dL Red Cell Distribution Width 16.1 H 10.0-14.5 % Platelet Count 185 130-400 10^3/uL Mean Platelet Volume 12.7 H 9.0-12.2 fL Immature Granulocyte % (Auto) 0 % Neutrophils (%) (Auto) 64 42-75 % Lymphocytes (%) (Auto) 24 12-44 % Monocytes (%) (Auto) 8 0-12 % Eosinophils (%) (Auto) 3 0-10 % Basophils (%) (Auto) 1 0-10 % Neutrophils # (Auto) 4.8 1.8-7.8 10^3/uL Lymphocytes # (Auto) 1.8 1.0-4.0 10^3/uL Monocytes # (Auto) 0.6 0.0-1.0 10^3/uL Eosinophils # (Auto) 0.2 0.0-0.3 10^3/uL Basophils # (Auto) 0.1 0.0-0.1 10^3/uL Immature Granulocyte # (Auto) 0.0 0.0-0.1 10^3/uL Prothrombin Time 14.2 12.2-14.7 SEC INR Comment 1.1 0.8-1.4 Activated Partial Thromboplast Time 28 24-35 SEC Sodium Level 140 135-145 MMOL/L Potassium Level 4.0 3.6-5.0 MMOL/L Chloride Level 107 98-107 MMOL/L Carbon Dioxide Level 24 21-32 MMOL/L Anion Gap 9 5-14 MMOL/L Blood Urea Nitrogen 9 7-18 MG/DL Creatinine 0.93 0.60-1.30 MG/DL Estimat Glomerular Filtration Rate 96 BUN/Creatinine Ratio 10 Glucose Level 120 H 70-105 MG/DL Calcium Level 9.5 8.5-10.1 MG/DL Corrected Calcium 9.3 8.5-10.1 MG/DL Magnesium Level 2.5 H 1.6-2.4 MG/DL Total Bilirubin 1.4 H 0.1-1.0 MG/DL Aspartate Amino Transf (AST/SGOT) 21 5-34 U/L Alanine Aminotransferase (ALT/SGPT) 18 0-55 U/L Alkaline Phosphatase 70 40-136 U/L Troponin I 0.049 H 0.070 H <0.028 NG/ML B-Type Natriuretic Peptide 786.7 H <100.0 PG/ML Total Protein 7.7 6.4-8.2 GM/DL Albumin 4.3 3.2-4.5 GM/DL My Orders Orders - HUMERA WARREN MD Cbc With Automated Diff (10/27/22 10:19) Magnesium (10/27/22 10:19) Chest 1 View, Ap/Pa Only (10/27/22 10:19) Comprehensive Metabolic Panel (10/27/22 10:19) Protime With Inr (10/27/22 10:19) Partial Thromboplastin Time (10/27/22 10:19) O2 (10/27/22 10:19) Monitor-Rhythm Ecg Trace Only (10/27/22 10:19) Lipid Panel (10/28/22 06:00) Ed Iv/Invasive Line Start (10/27/22 10:19) Troponin I [place] (10/27/22 10:19) Ekg Tracing (10/27/22 10:37) Bnp [place] (10/27/22 11:17) Troponin I [place] (10/27/22 12:50) Furosemide Injection (Lasix Injection) (10/27/22 14:00) Ed Admission (Communication) (10/27/22 14:47) Medications Given in ED Current Medications Medications Dose Ordered Sig/Nicole Route Start Time Stop Time Status Last Admin Dose Admin Furosemide 60 mg ONCE ONCE IVP 10/27/22 14:00 10/27/22 14:01 DC 10/27/22 14:08 60 MG Vital Signs/I&O 10/27/22 10/27/22 09:57 15:00 Temp 36.4 Pulse 102 84 Resp 22 18 B/P (MAP) 155/113 (127) 127/89 Pulse Ox 99 Blood Pressure Mean: 127 Progress Progress Note #1: Time: 12:18 Progress Note Patient reevaluated at this time resting comfortably, sleeping. Appears very tired. Normal pulse, normal blood pressure. We will repeat his troponin in 30 minutes. Progress Note #2: Time: 13:30 Progress Note Patient seen and evaluated by me. Evaluation today includes physical exam, cardiac work-up to include CBC, Chem-12, magnesium, troponin, BNP as well as coags. Single view chest x-ray and EKG also obtained. Pertinent physical exam findings, well-developed well-nourished 56-year-old male who appears older than stated age, no acute distress. Heart is regular, pulses are brisk. Lungs demo nstrate diffuse mild expiratory and inspiratory wheeze. Abdomen is soft. Patient does have what appears to be mild edema overlying his left pacer defibrillator. No rashes or signs of infection. Lower extremities do not show any edema. He moves all extremities well, no focal neurologic deficits noted. Vital signs are stable. Differential diagnosis based on history and physical exam, NSTEMI versus STEMI, acute exacerbation of congestive heart failure, COPD exacerbation, pneumonia, suspicion for medical noncompliance as the etiology of failure. Labs and imaging independently reviewed by me. CBC is normal. Chem-12 shows an elevated magnesium at 2.5, total bilirubin is 1.4, glucose is 120. Otherwise all other findings are within normal range. Coags are negative. Initial troponin is 0.049. As the patient has had prior elevated troponin, prior to discussion with cardiology I waited for 3 hours and repeated the troponin, it mamadou to 0.070. His BNP is 786.7. Chest x-ray demonstrates bilateral pulmonary edema. EKG is paced with occasional ectopic ventricular beats. Case was discussed with Dr. Banuelos on for cardiology. He recommended 60 mg of IV Lasix. Patient was noted to be in no acute distress at the time of admission, resting comfortably almost sleeping. Sats maintained above 93% on room air. As his troponin had bumped here in the emergency department we will admit him for further management of likely congestive failure exacerbation causing a bump in his troponin. He likely does have an element of COPD as he smokes marijuana daily. No concerning findings for pneumonia. I do suspect that he is noncompliant with his medications as he is on diuretic therapy. No concerning findings at this time for STEMI. Consideration for NSTEMI which will be further evaluated by cardiology during this admission. Initial ECG Impression Date: Oct 27, 2022 Initial ECG Impression Time: 10:00 Initial ECG Rate: 99 Comment Ventricular Paced rhythm with occasional PVC Diagnostic Imaging Diagonstic Imaging: Xray Plain Films/CT/US/NM/MRI: chest Comments [facility]. [place], [place] NAME: KIRK SANTOS [facility] REC#: [id number] PT STATUS: REG ER : 1965 PHYSICIAN: HUMERA WARREN MD ADMIT DATE: 10/27/22/ER Draft Date of Exam:10/27/22 CHEST 1 VIEW, AP/PA ONLY CLINICAL INDICATION: Patient with chest pain, shortness breath, and cough. EXAM: Portable chest x-ray upright view. COMPARISON: Chest x-ray dated 06/28/2022. FINDINGS: Again seen cardiomegaly with interval slight progression of pulmonary vascular congestion. There are patchy airspace opacities involving both lung bases which may be related to lung infiltrates or pulmonary congestion. There is no pleural effusion or pneumothorax. Cardiac pacemaker/AICD is again seen overlying the left chest with the leads appearing intact. There are degenerative spurs involving the thoracic spine. IMPRESSION: 1: There is cardiomegaly with mild pulmonary vascular congestion which has minimally progressed. 2: There are mild patchy airspace opacities involving both lung bases which may be related to lung infiltrates or related to pulmonary congestion. Dictated on workstation # [id number] Dict: 10/27/22 1038 Trans: 10/27/22 1045 [id number] [id number] Interpreted by: DONOVAN MADRIGAL MD Electronically signed by: Departure Communication (Admissions) Time/Spoke to Admitting Phy: 13:[address] Carson (hospitalist) accepts Obs to Cardiac Step down Time/Spoke to Consulting Phy: 13:[address] Banuelos (cardiology) Impression Primary Impression: Acute exacerbation of congestive heart failure Qualified Codes: I50.9 - Heart failure, unspecified Additional Impression: Elevated troponin I level Disposition: ADMITTED INPATIENT Condition: Stable Admissions Decision to Admit Reason: Admit from ER (General) Decision to Admit/Date: Oct 27, 2022 Time/Decision to Admit Time: 13:51 Departure-Patient Inst. Referrals: AMANDA SLADE DO (PCP/Family) Primary Care Physician HUMERA WARREN MD Oct 27, 2022 10:22
[2022-10-27 10:30] LABS: BASOPHILS # (AUTO) 0.1 10^3/uL (0.0-0.1); BASOPHILS % (AUTO) 1 % (0-10); EOSINOPHILS # (AUTO) 0.2 10^3/uL (0.0-0.3); EOSINOPHILS % (AUTO) 3 % (0-10); HEMATOCRIT 44 % (40-54); HEMOGLOBIN 14.9 g/dL (13.3-17.7); LYMPHOCYTES # (AUTO) 1.8 10^3/uL (1.0-4.0); LYMPHOCYTES % (AUTO) 24 % (12-44); MEAN CORPUSCULAR HEMOGLOBIN 28 pg (25-34); MEAN CORPUSCULAR HGB CONC 34 g/dL (32-36); MEAN CORPUSCULAR VOLUME 83 fL (80-99); MEAN PLATELET VOLUME 12.7 fL (9.0-12.2); MONOCYTES # (AUTO) 0.6 10^3/uL (0.0-1.0); MONOCYTES % (AUTO) 8 % (0-12); NEUTROPHILS # (AUTO) 4.8 10^3/uL (1.8-7.8); NEUTROPHILS % (AUTO) 64 % (42-75); PLATELET COUNT 185 10^3/uL (130-400); WHITE BLOOD COUNT 7.5 10^3/uL (4.3-11.0)
[2022-10-27 10:32] LABS: ALBUMIN 4.3 GM/DL (3.2-4.5)
[2022-10-27 10:33] LABS: CALCIUM 9.5 MG/DL (8.5-10.1)
[2022-10-27 10:34] LABS: TOTAL PROTEIN 7.7 GM/DL (6.4-8.2)
[2022-10-27 10:36] LABS: BILIRUBIN,TOTAL 1.4 MG/DL (0.1-1.0); INR 1.1 (0.8-1.4); PROTHROMBIN TIME PATIENT 14.2 SEC (12.2-14.7)
[2022-10-27 10:38] LABS: CREATININE SERUM 0.93 MG/DL (0.60-1.30)
[2022-10-27 10:40] LABS: MAGNESIUM 2.5 MG/DL (1.6-2.4)
--- NOTE | 2022-10-27 10:45 | Diagnostic Imaging Report ---
CLINICAL INDICATION: Patient with chest pain, shortness breath, and cough. EXAM: Portable chest x-ray upright view. COMPARISON: Chest x-ray dated 06/28/2022. FINDINGS: Again seen cardiomegaly with interval slight progression of pulmonary vascular congestion. There are patchy airspace opacities involving both lung bases which may be related to lung infiltrates or pulmonary congestion. There is no pleural effusion or pneumothorax. Cardiac pacemaker/AICD is again seen overlying the left chest with the leads appearing intact. There are degenerative spurs involving the thoracic spine. IMPRESSION: 1: There is cardiomegaly with mild pulmonary vascular congestion which has minimally progressed. 2: There are mild patchy airspace opacities involving both lung bases which may be related to lung infiltrates or related to pulmonary congestion. Dictated by: Dictated on workstation # [id number]
[2022-10-27] MEDS ORDERED: FUROSEMIDE 40 MG/4 ML INJ (LASIX) IVP ONE (14:00)
[2022-10-27] MEDS ORDERED: ONDANSETRON 4 MG/2 ML (SDV) Z0FRAN IV PRN (15:00)
[2022-10-27] MEDS ORDERED: ENOXAPARIN 40 MG/0.4 ML (LOVENOX) SYR SC SCH ×2 (15:00→17:00)
[2022-10-27] MEDS ORDERED: MILK OF MAGNESIA 400 MG/5 ML 30 ML UDC PO PRN (15:00)
[2022-10-27] MEDS ORDERED: MELATONIN 3 MG TABLET PO PRN (15:00)
[2022-10-27] MEDS ORDERED: BENZONATATE 100 MG (TESSALON) CAPSULE PO PRN (15:00)
[2022-10-27] MEDS ORDERED: ANTACID SUSP 30 ML UDC (MYLANTA) PO PRN (15:00)
[2022-10-27 15:30] VITALS: BP 133/116
--- NOTE | 2022-10-27 16:22 | History & Physical-Hospitalist ---
History of Present Illness HPI/Chief Complaint Pt is a 56 year old male with PMH HTN, HLD, HFrEF s/p AICD who presented ot the ED due to SOB. He reports it's been going on for a couple of days and he has some left sided abd pain that feels like he is constipated. He reports compliance with his lasix. he was seen at [facility] by Mayte today and she referred him to the ER because he reported the pain as chest pain to her. He states he did not want to come but family insisted. He has many family members at bedside who agree they made him come. Patient was given 60mg IV lasix in the ER and states he has already started urinating significantly. Source: patient Date Seen 10/27/22 Time Seen by a Provider: 16:17 Attending Physician Dipesh Felton DO PCP Admitting Physician: Marie Carson MD Attending Physician: Marie Carson MD Referring Physician Date of Admission Oct 27, 2022 at 15:08 Home Medications & Allergies Home Medications Reviewed patient Home Medication Reconciliation performed by pharmacy medication reconciliations composite technician and/or nursing. Patients Allergies have been reviewed. Allergies Allergies Coded Allergies Penicillins (Unverified Allergy, Unknown, 03/02/12) diphenhydramine HCl (Verified Allergy, Unknown, 09/28/13) latex (Unverified Adverse Reaction, Mild, rash, 09/28/13) Past Stekchp-Dzakci-Sbghst Hx Patient Social History Tobacco Use?: No Substance use?: Yes Substance type: Marijuana Alcohol Use?: No Pt feels they are or have been: No Immunizations Up To Date First/Initial COVID19 Vaccinat: NO Hepatitis A: No Hepatitis B: No Seasonal Allergies Seasonal Allergies: No Current Status Advance Directives: No Communicates: Verbally Primary Language: Wolof Preferred Spoken Language: Wolof Is interpretation needed?: No Sensory deficits: Vision impairment Implanted or Applied Medical D: Pacemaker Past Medical History Surgeries: Appendectomy, Cardiac, Orthopedic Asthma, COPD Hypertension Chronic Back Pain Sleep Difficulties Adverse Reaction/Blood Tranf: No Family Medical History No Pertinent Family Hx Review of Systems Constitutional: see HPI Physical Exam Physical Exam Vital Signs Vital Signs - First Documented 10/27/22 10/27/22 10/27/22 09:57 15:00 15:30 Temp 36.4 Pulse 102 Resp 22 B/P (MAP) 155/113 (127) Pulse Ox 99 O2 Delivery Room Air Capillary Refill : NONE Height, Weight, BMI Height: 5'7" Weight: 200lbs. 6.4oz. 90.521629lj; 31.48 BMI Method:Estimated General Appearance: No Apparent Distress, Chronically ill Respiratory: No Accessory Muscle Use; No Crackles; Decreased Breath Sounds Cardiovascular: Regular Rate, Rhythm, No Murmur Gastrointestinal: Normal Bowel Sounds, Soft Neurologic/Psychiatric: Alert, Oriented x3 Results Results/Procedures Labs Laboratory Tests 10/27/22 10:10 Patient resulted labs reviewed. Imaging: Reviewed Imaging Report Imaging [facility]. [place], [place] NAME: KIRK SANTOS [facility] REC#: [id number] PT STATUS: REG ER : 1965 PHYSICIAN: HUMERA WARREN MD ADMIT DATE: 10/27/22/ER Signed Date of Exam:10/27/22 CHEST 1 VIEW, AP/PA ONLY CLINICAL INDICATION: Patient with chest pain, shortness breath, and cough. EXAM: Portable chest x-ray upright view. COMPARISON: Chest x-ray dated 06/28/2022. FINDINGS: Again seen cardiomegaly with interval slight progression of pulmonary vascular congestion. There are patchy airspace opacities involving both lung bases which may be related to lung infiltrates or pulmonary congestion. There is no pleural effusion or pneumothorax. Cardiac pacemaker/AICD is again seen overlying the left chest with the leads appearing intact. There are degenerative spurs involving the thoracic spine. IMPRESSION: 1: There is cardiomegaly with mild pulmonary vascular congestion which has minimally progressed. 2: There are mild patchy airspace opacities involving both lung bases which may be related to lung infiltrates or related to pulmonary congestion. Dictated by: Dictated on workstation # [id number] Dict: 10/27/22 1038 Trans: 10/27/22 1215 AS6 [id number] Interpreted by: DONOVAN MADRIGAL MD Electronically signed by: DONOVAN MADRIGAL MD 10/27/22 1215 Assessment/Plan Admission Diagnosis CHF Exacerbation Admission Status: Observation Assessment and Plan CHF Exacerbation- acutely decompensated heart failure HTN HLD Lasix given in the ER Monitor I/Os Elevated troponin, essentially stable on repeat Cardiology consulted, appreciate recs Hopefully home tomorrow if doing well Clinical Quality Measures AMI/AHF: ASA po Prior to arrival: Yes Copy Copies To 1: MAYTE ATKINS APRN, KATELYN M MD Oct 27, 2022 16:22
[2022-10-27] MEDS ORDERED: meTOproloL SUCCINATE 50 MG (TOPROL XL) TAB PO NR (17:00)
[2022-10-27 20:00] VITALS: BP 134/106
[2022-10-27] MEDS: GABAPENTIN 600 MG (NEURONTIN) TAB PO SCH (20:17)
[2022-10-27] MEDS ORDERED: FUROSEMIDE 40 MG/4 ML INJ (LASIX) IV SCH (21:00)
[2022-10-28] VITALS: BP 112/81
[2022-10-28 04:00] VITALS: BP 110/80
--- NOTE | 2022-10-28 07:44 | Consultation-Cardiology ---
HPI-Cardiology Cardiology Consultation Date of Consultation 10/27/22 Date of Admission Time Seen by Provider: 16:17 [facility] Mr. Dave is a 56-year-old gentleman with a history of hypertension COPD asthma chronic back pain heart failure with reduced EF status post ICD and troponin anemia with troponins ranging from 0.05-0.07 on past admissions who presents for evaluation of shortness of breath and chest discomfort. Patient states that for the past 3 to 4 days he has been experiencing episodes of shortness of breath particular while lying flat at night at times he will develop chest pressure and shortness of breath and this wakes him up from sleep. He generally sleeps on 2- 3 pillows at baseline. He also reports dyspnea on exertion which is getting worse for him. When questioned, he states that he has had several similar symptoms in the past generally in the setting of his heart failure episodes. He reports low salt intake. He reports compliance with his medications. Chest x- ray in the emergency room was consistent with CHF and fluid with fluid along the fissure. Did have an echocardiogram which demonstrated an EF of 20 to 25%. Troponin has ranged from 0.05-0.07 which is similar to what he is trended in the past. BNP is elevated at 787 which is up from his last measure of 384. Creatinine is 0.9 potassium is 4. In that setting he was transitioned to the floor for further care cardiology is now consulted to aid in consultation. Home Medications & Allergies Allergies: Coded Allergies: Penicillins (Unverified Allergy, Unknown, 03/02/12) diphenhydramine HCl (Verified Allergy, Unknown, 09/28/13) latex (Unverified Adverse Reaction, Mild, rash, 09/28/13) I have asked him to have his bring in his medications from home to confirm. As for now he is currently on Toprol XL 100 mg p.o. daily Neurontin 600 mg p.o. twice daily, atorvastatin 40 mg p.o. nightly, Lasix 40 mg IV twice daily, Lovenox 40 mg subcu [id number] Hx Patient Social History Marital Status: Recreational Drug Use: Yes (Marijuana) Smoking Status: Former Smoker (Last tobacco use was approximately 20 years ago. He smoked 2 packs/day for approximately 20 years) Former smoker/When Quit: Jul 09, 1993 Recent Hopitalizations: Yes Have you traveled recently?: No Alcohol Use?: No Substance type: Marijuana Past Medical History Status post appendectomy Hypertension Troponin anemia ranging from 0.05-0.07 Heart failure with reduced EF status post ICD COPD Chronic back pain Family Medical History Significant Family History: No Pertinent Family Hx Review of Systems-General Review of Systems Constitutional: see HPI Musculoskeletal: no symptoms reported Skin: no symptoms reported Psychiatric/Neurological: No Symptoms Reported All systems were reviewed and are negative except for what is been described in HPI Reviewed Test Results Reviewed Test Results Lab INR 1.1, sodium 140, potassium 4.0, chloride 107, bicarb 24, BUN 9 creatinine, creatinine 0.9, total bili 1.4, BNP 787, troponin 0.05-0.07, EKG has been ordered Physical Exam Physical Exam Vital Signs Vital Signs - First Documented 10/27/22 10/27/22 09:57 15:00 Temp 36.4 Pulse 102 Resp 22 B/P (MAP) 155/113 (127) Pulse Ox 99 Capillary Refill : NONE Height, Weight, BMI Height: 5'7" Weight: 200lbs. 6.4oz. 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 A/P-Cardiology Assessment/Plan Mr. Dave is a 56-year-old gentleman with a history of hypertension COPD asthma chronic back pain heart failure with reduced EF status post ICD and troponin anemia with troponins ranging from 0.05-0.07 on past admissions who presents for evaluation of shortness of breath and chest discomfort. Found to have a BNP of 787, PND sxs and CXR consistent iwth pulmonary edema. ## HFrEF: Has known reduced EF of approximately 28%. Status post ICD placement. Here echo demonstrates an EF of approximately 20% IVC is not dilated but its not collapsing consistent with hypovolemic state. For now continue with Lasix IV administration as you are doing I have asked the patient to bring have his bring in all of his home medications. Otherwise, his heart failure regimen will need to be optimized. At this point time we will start him on Jardiance 10 mg p.o. daily as well as Aldactone. We will continue his metoprolol. We will continue his Lasix. He believes that he is on lisinopril at home we will need to check this. EKG ordered ##Hypertension systolic blood pressures ranging from 1 20-1 50 with diastolics ranging from 80s to 110s. We may look to transition to Coreg which has a little bit better blood pressure lowering effect in the setting of these elevated blood pressures but again will need to review his home regimen. ##Troponinenemia: Patient has had elevated troponins in the past ranging from 0.05-0.07. He is currently in that same range today could represent troponin leak in the setting of heart failure optimize regimen as noted above. We will follow-up troponin in the a.m. just to be sure ##COPD: Space plan per hospitalist ##Disposition: Diuresis. Reassess. Likely discharge in the next 1 to 2 days Clinical Quality Measures AMI/AHF: ASA po Prior to arrival: Yes MOIRA FIERRO MD Oct 28, 2022 7:44 am
[2022-10-28 08:12] VITALS: BP 133/94
[2022-10-28] MEDS: GABAPENTIN 600 MG (NEURONTIN) TAB PO SCH (08:41)
[2022-10-28] MEDS ORDERED: EMPAGLIFLOZIN 10 MG TABLET (JARDIANCE) PO SCH (09:00)
[2022-10-28] MEDS ORDERED: SPIRONOLACTONE 25 MG (ALDACTONE) TAB PO SCH (09:00)
[2022-10-28] MEDS ORDERED: meTOprolol SUCCINATE 100 MG (TOPROL XL) TAB PO SCH (09:00)
[2022-10-28] MEDS ORDERED: FUROSEMIDE 40 MG/4 ML INJ (LASIX) IV SCH (09:00)
--- NOTE | 2022-10-28 09:22 | Discharge Inst-Simple/Standard ---
Discharge Inst-Standard Discharge Medications New, Converted or Re-Newed RX: Transmitted to Pharmacy Patient Instructions/Follow Up Plan of Care/Instructions/FU: Please continue to take your medications as written. Please follow up with your primary care doctor and primary optical laboratory mechanic to follow up this hospital stay. Activity as Tolerated: Yes Discharge Diet: No Restrictions Return to The Hospital For: Chest pain, shortness of breath, weakness, confusion, fever, if you feel you are getting worse. CANDIE NUÑEZ MD Oct 28, 2022 09:22
[2022-10-28] MEDS ORDERED: SPIR25TA5 PO (09:47)
[2022-10-28] MEDS ORDERED: LISI20TA26 PO (09:47)
[2022-10-28] MEDS ORDERED: POTA-179 PO (09:47)
[2022-10-28] MEDS ORDERED: FURO40TA4 PO ×2 (09:47→11:46)
[2022-10-28] MEDS ORDERED: ATOR40TA70 PO (09:47)
[2022-10-28] MEDS ORDERED: MTP100TCR PO (09:47)
--- NOTE | 2022-10-28 09:48 | Cardiology Progress Note ---
Subjective Date Seen by Provider: Oct 28, 2022 Time Seen by Provider: 08:30 Subjective/Events-last exam No issues last night. Feels great. Breathing improved. Was able to lie relatively flat last night. Objective-Cardiology Exam Last Set of Vital Signs Vital Signs 10/28/22 08:12 Temp 37.2 Pulse 68 Resp 18 B/P (MAP) 133/94 (107) Pulse Ox 98 O2 Delivery Room Air I&O Intake and Output 10/27/22 23:59 Intake Total 600 ml Output Total 1575 ml Balance -975 ml Intake Oral 600 ml Output Urine Total 1575 ml Daily Weight Change Unsure Other physical findings Gen: No acute distress; A+O x 3, sitting comfortably in the bed Neck: soft supple, no cervical LAD Lungs: coarse BS but CTA-bilaterally; diminished breath sounds in bilateral bases; rales no longer present. no rafia wheezing or rhonchi CV: nl s1/s2, no m-g-r, RRR Abd: soft nt nd, no HSM, + BS Ext: wwp, no c-c; trace edema in BLE ; 2+ DP and femoral pulses skin: no lesions rashes or ecchymoses are noted. Results Lab Laboratory Tests 10/27/22 10:10 Procedures Procedures EKG has been ordered A/P-Cardiology Assessment/Plan Mr. Dave is a 56-year-old gentleman with a history of hypertension COPD asthma chronic back pain heart failure with reduced EF status post ICD and troponin anemia with troponins ranging from 0.05-0.07 on past admissions who presents for evaluation of shortness of breath and chest discomfort. Found to have a BNP of 787, PND sxs and CXR consistent iwth pulmonary edema. ## HFrEF: EF ~ 20% on this admisison. diuresed well overnight. Symptomatically improved. Pt deadset on discharge today. Reviewed home meds: KCl 20mEq po Qd, Aldactone 25 Qd, lisinpirl 20mg po QD, lasix 40 QAM, lasix 20 QPM, Toprol XL 100 Qd, and atorva 40 qhs. - start lisinopril - give lasix 60mg iv x 1 this AM - transition home lasix to lasix 40mg po BID - ok with d/c later today if able to ambulate without desaturations. ##Hypertension systolic blood pressures ranging from 110-1 50 with diastolics ranging from 80s to 110s. - lisinoipril added - cont to monitor ##Troponinenemia: Patient has had elevated troponins in the past ranging from 0.05-0.07. He is currently in that same range today could represent troponin leak in the setting of heart failure optimize regimen as noted above. - f/u Tn 0.04, type II demand ischemia - no acute concerns ##COPD: plan per hospitalist ##Disposition: ok with discharge today after iv lasi this AM. ensure pt can ambulate without desaturations prior to discharge. pt has follow up visit with primary body builder (in [place]) in 1st week of November MOIRA FIERRO MD Oct 28, 2022 09:48
[2022-10-28 11:33] VITALS: BP 121/84
--- NOTE | 2022-10-28 11:48 | Discharge Summary ---
Diagnosis/Chief Complaint Date of Admission Oct 27, 2022 at 3:08 pm Date of Discharge Discharge Date: Oct 28, 2022 Admission Diagnosis CHF Exacerbation Primary Care Dipesh Felton DO Discharge Summary Discharge Physical Exam Allergies: Coded Allergies: Penicillins (Unverified Allergy, Unknown, 03/02/12) diphenhydramine HCl (Verified Allergy, Unknown, 09/28/13) latex (Unverified Adverse Reaction, Mild, rash, 09/28/13) Vitals & I&Os Vital Signs Date Time Temp Pulse Resp B/P (MAP) Pulse Ox O2 Delivery O2 Flow Rate FiO2 10/28/22 13:20 10/28/22 11:33 36.5 69 Room Air 10/28/22 08:12 18 98 General Appearance: No Apparent Distress, Chronically ill Respiratory: Lungs Clear Cardiovascular: Regular Rate, Rhythm, No Murmur Gastrointestinal: Normal Bowel Sounds, Soft Neurologic/Psychiatric: Alert, Oriented x3 Hospital Course Patient is a 56-year-old with past medical history of systolic heart failure who presented to the emergency department due to acutely decompensated heart failure. He was treated with IV Lasix and responded well. He did have a minimally elevated troponin of 0.04 and thus cardiology was consulted. This did remain essentially stable at 0.07 and 0.038 upon trending. He was able to be discharged home with an increased Lasix dose to follow-up with his primary care physician and primary miniature set constructor in 1 to 2 weeks respectively. Labs (last 24 hrs) Patient resulted labs reviewed. Pending Labs Imaging: Reviewed Imaging Report Discussion & Recommendations Discharge Planning: >30 minutes discharge planning Discharge Home Medications: Active Scripts Active Furosemide 40 Mg Tablet 40 Mg PO BID Reported Lisinopril 20 Mg Tablet 20 Mg PO DAILY Atorvastatin Calcium 40 Mg Tablet 40 Mg PO DAILY Potassium Chloride 20 Meq Tab.er.prt 20 Meq PO DAILY Spironolactone 25 Mg Tablet 25 Mg PO DAILY Metoprolol Succinate 100 Mg Tab.er.24h 100 Mg PO DAILY Gabapentin 800 Mg Tablet 800 Mg PO Instructions to patient/family Please see electronic discharge instructions given to patient. Clinical Quality Measures AMI/AHF: ASA po Prior to arrival: Yes CANDIE NUÑEZ MD Oct 28, 2022 11:48
== END 2022-10-28 11:47 | disposition home or self-care (01) ==
LOC: EDUNIT# 09:52 → ER 09:55 → UNDOADMOB 15:08 → CSD 15:08 → UNDODISOB 10-28 11:47
PROVIDERS: ADMIT Family Medicine; ATTEND Family Medicine
DX: I11.0 Hypertensive heart disease with heart failure (principal); I50.21 Acute systolic (congestive) heart failure; R77.8 Other specified abnormalities of plasma proteins; J44.9 Chronic obstructive pulmonary disease, unspecified; E78.5 Hyperlipidemia, unspecified; Z79.899 Other long term (current) drug therapy; Z87.891 Personal history of nicotine dependence; Z28.310 Unvaccinated for COVID-19
CPT/HCPCS: 36415; 71045; 80053; 80061; 83036; 83735; 83880; 84484; 85025; 85610; 85730; 93005; 93041; 93306; 96372; 96376; G0378

== ENCOUNTER 2022-11-12 00:10 | Inpatient (IN) | payer OTHER, MEDICAID ==
[~2022-11-12] VITALS: Ht 172 cm; Wt 87.2 kg
[~2022-11-12 00:10] MED LIST changes: +ATOR40TA70 PO; +FURO40TA4 PO; +LISI20TA26 PO; +MTP100TCR PO; +POTA-179 PO; +SPIR25TA5 PO
[2022-11-12] MEDS ORDERED: ASPIRIN 81 MG CHEW (CHILDREN'S ASA) ONE (00:35)
[2022-11-12 00:40] LABS: EOSINOPHILS # (AUTO) 0.2 10^3/uL (0.0-0.3); EOSINOPHILS % (AUTO) 3 % (0-10); HEMOGLOBIN 13.8 g/dL (13.3-17.7)
[2022-11-12 00:41] LABS: BASOPHILS % (AUTO) 1 % (0-10); HEMATOCRIT 40 % (40-54); LYMPHOCYTES # (AUTO) 2.2 10^3/uL (1.0-4.0); LYMPHOCYTES % (AUTO) 30 % (12-44); MEAN CORPUSCULAR HEMOGLOBIN 29 pg (25-34); MEAN CORPUSCULAR HGB CONC 34 g/dL (32-36); MEAN CORPUSCULAR VOLUME 83 fL (80-99); MEAN PLATELET VOLUME 12.8 fL (9.0-12.2); MONOCYTES # (AUTO) 0.5 10^3/uL (0.0-1.0); MONOCYTES % (AUTO) 7 % (0-12); NEUTROPHILS # (AUTO) 4.3 10^3/uL (1.8-7.8); NEUTROPHILS % (AUTO) 60 % (42-75); PLATELET COUNT 138 10^3/uL (130-400); WHITE BLOOD COUNT 7.2 10^3/uL (4.3-11.0)
[2022-11-12 00:45] LABS: POTASSIUM 3.4 MMOL/L (3.6-5.0); PROTHROMBIN TIME PATIENT 14.1 SEC (12.2-14.7)
[2022-11-12] MEDS ORDERED: ASPIRIN 81 MG CHEW (CHILDREN'S ASA) PO ONE (00:45)
[2022-11-12 00:46] LABS: CALCIUM 9.3 MG/DL (8.5-10.1)
[2022-11-12 00:47] LABS: TOTAL PROTEIN 7.2 GM/DL (6.4-8.2)
[2022-11-12 00:49] LABS: BILIRUBIN,TOTAL 0.9 MG/DL (0.1-1.0)
[2022-11-12 00:51] LABS: CREATININE SERUM 1.13 MG/DL (0.60-1.30)
[2022-11-12 00:54] LABS: MAGNESIUM 1.9 MG/DL (1.6-2.4)
--- NOTE | 2022-11-12 02:06 | ED Chest Pain ---
General Chief Complaint: Chest Pain Stated Complaint: CP,SOB Nursing Triage Note: PT TO ED W/ C/O SOB ET CP X2-3 DAYS. PT REPORTS "MY WHOLE LEFT SIDE HURTS". REPORTS HE USED HIS INHALERS W/O IMPROVEMENT Source: patient, family Exam Limitations: no limitations History of Present Illness Date Seen by Provider: November 12, 2022 Time Seen by Provider: 01:15 Initial Comments Patient here with left-sided chest pain. Had previous admission within the last few weeks for heart failure. Subsequently went home and was doing okay although was told that he may need oxygen with activity. Patient states that he gets very short of breath with any activity but does okay when he is just sitting. He also gets chest pain with activity. Denies nausea, vomiting or fever. Does have history of COPD and has used his inhalers and that has not helped. Timing/Duration: 2-3 days Severity/Quality: moderate, pressure, sharp Location: other (Left-sided chest) Radiation: no radiation Activities at Onset: none Prior CP/Workup: cardiac cath, echocardiography ASA po MANAGER FILE: No NTG SL MANAGER FILE: No Associated Symptoms: No abdominal pain, No back pain, No diaphoresis, No nausea/vomiting; shortness of breath; No weakness Allergies and Home Medications Allergies Coded Allergies: Penicillins (Unverified Allergy, Unknown, 03/02/12) diphenhydramine HCl (Verified Allergy, Unknown, 09/28/13) latex (Unverified Adverse Reaction, Mild, rash, 09/28/13) Patient Home Medication List Home Medication List Reviewed: Yes Atorvastatin Calcium (Atorvastatin Calcium) 40 Mg Tablet, 40 MG PO DAILY, (Reported) Entered as Reported by: DESHAUN VILLAREAL on 10/28/22 09 Furosemide (Furosemide) 40 Mg Tablet, 40 MG PO BID Prescribed by: CANDIE CARSON on 10/28/22 1146 Gabapentin (Gabapentin) 800 Mg Tablet, 800 MG PO, (Reported) Entered as Reported by: FREDDY ROSALES on 08/04/15 0526 Lisinopril (Lisinopril) 20 Mg Tablet, 20 MG PO DAILY, (Reported) Entered as Reported by: DESHAUN VILLAREAL on 10/28/22 0947 Metoprolol Succinate (Metoprolol Succinate) 100 Mg Tab.er.24h, 100 MG PO DAILY, (Reported) Entered as Reported by: DESHAUN VILLAREAL on 10/28/22946 Potassium Chloride (Potassium Chloride) 20 Meq Tab.er.prt, 20 MEQ PO DAILY, (Reported) Entered as Reported by: DESHAUN VILLAREAL on 10/28/22946 Spironolactone (Spironolactone) 25 Mg Tablet, 25 MG PO DAILY, (Reported) Entered as Reported by: DESHAUN VILLAREAL on 10/28/22946 Review of Systems Review of Systems Constitutional: No chills, No fever EENTM: No Symptoms Reported Respiratory: See HPI, SOA With Exertion; Denies Wheezing Cardiovascular: Chest Pain, Edema Gastrointestinal: Denies Nausea, Denies Vomiting Genitourinary: No Symptoms Reported Musculoskeletal: no symptoms reported Skin: no symptoms reported Past Ikoqgwb-Wdfxvs-Hqkltj Hx Patient Social History Tobacco Use?: No Substance use?: Yes Substance type: Marijuana Immunizations Up To Date First/Initial COVID19 Vaccinat: NO Seasonal Allergies Seasonal Allergies: No Past Medical History Surgery/Hospitalization HX: pacemaker, hypertension, high cholesterol, asthma, Surgeries: Yes Appendectomy, Cardiac, Orthopedic Respiratory: Yes Asthma, COPD Cardiac: Yes Hypertension Reproductive Disorders: No Musculoskeletal: Yes Chronic Back Pain Psychosocial: Yes Sleep Difficulties Adverse Reaction/Blood Tranf: No Family Medical History Reviewed Nursing Family Hx No Pertinent Family Hx Physical Exam Vital Signs Vital Signs - First Documented 11/12/22 11/12/22 00:14 02:30 Temp 36.9 Pulse 88 Resp 24 B/P (MAP) 133/100 (111) Pulse Ox 97 O2 Delivery Room Air O2 Flow Rate 2.00 Capillary Refill : Less Than 3 Seconds Height, Weight, BMI Height: 5'7" Weight: 200lbs. 6.4oz. 90.621402is; 28.00 BMI Method:Estimated General Appearance: WD/WN, Mild Distress HEENT: PERRL/EOMI, Pharynx Normal Neck: Non Tender, Supple Respiratory: Crackles (Bilateral bases); No Wheezing Cardiovascular: Regular Rate, Rhythm, No Murmur Gastrointestinal: Non Tender, Soft Extremity: Normal Range of Motion, Non Tender, No Calf Tenderness, Pedal Edema (1-2+ up to mid tibia bilateral) Neurologic/Psychiatric: Alert, Oriented x3 Skin: Normal Color, Warm/Dry Progress/Results/Core Measures Results/Orders Lab Results Laboratory Tests Test 11/12/22 00:20 11/12/22 02:20 Range/Units White Blood Count 7.2 4.3-11.0 10^3/uL Red Blood Count 4.82 4.30-5.52 10^6/uL Hemoglobin 13.8 13.3-17.7 g/dL Hematocrit 40 40-54 % Mean Corpuscular Volume 83 80-99 fL Mean Corpuscular Hemoglobin 29 25-34 pg Mean Corpuscular Hemoglobin Concent 34 32-36 g/dL Red Cell Distribution Width 15.6 H 10.0-14.5 % Platelet Count 138 130-400 10^3/uL Mean Platelet Volume 12.8 H 9.0-12.2 fL Immature Granulocyte % (Auto) 0 % Neutrophils (%) (Auto) 60 42-75 % Lymphocytes (%) (Auto) 30 12-44 % Monocytes (%) (Auto) 7 0-12 % Eosinophils (%) (Auto) 3 0-10 % Basophils (%) (Auto) 1 0-10 % Neutrophils # (Auto) 4.3 1.8-7.8 10^3/uL Lymphocytes # (Auto) 2.2 1.0-4.0 10^3/uL Monocytes # (Auto) 0.5 0.0-1.0 10^3/uL Eosinophils # (Auto) 0.2 0.0-0.3 10^3/uL Basophils # (Auto) 0.0 0.0-0.1 10^3/uL Immature Granulocyte # (Auto) 0.0 0.0-0.1 10^3/uL Percent Immature Platelet Fraction 13.4 H 0.0-7.6 % Prothrombin Time 14.1 12.2-14.7 SEC INR Comment 1.0 0.8-1.4 Activated Partial Thromboplast Time 30 24-35 SEC Sodium Level 141 135-145 MMOL/L Potassium Level 3.4 L 3.6-5.0 MMOL/L Chloride Level 108 H 98-107 MMOL/L Carbon Dioxide Level 22 21-32 MMOL/L Anion Gap 11 5-14 MMOL/L Blood Urea Nitrogen 13 7-18 MG/DL Creatinine 1.13 0.60-1.30 MG/DL Estimat Glomerular Filtration Rate 76 BUN/Creatinine Ratio 12 Glucose Level 143 H 70-105 MG/DL Calcium Level 9.3 8.5-10.1 MG/DL Corrected Calcium 9.3 8.5-10.1 MG/DL Magnesium Level 1.9 1.6-2.4 MG/DL Total Bilirubin 0.9 0.1-1.0 MG/DL Aspartate Amino Transf (AST/SGOT) 21 5-34 U/L Alanine Aminotransferase (ALT/SGPT) 24 0-55 U/L Alkaline Phosphatase 81 40-136 U/L Myoglobin 54.6 10.0-92.0 NG/ML Troponin I 0.036 H 0.037 H <0.028 NG/ML Total Protein 7.2 6.4-8.2 GM/DL Albumin 4.0 3.2-4.5 GM/DL B-Type Natriuretic Peptide 1475.4 H <100.0 PG/ML My Orders Orders - RAFA JOHNSTON MD Ekg Tracing (11/12/22 00:18) Ekg Tracing (11/12/22 00:28) Cbc With Automated Diff (11/12/22 00:28) Magnesium (11/12/22 00:28) Chest 1 View, Ap/Pa Only (11/12/22 00:28) Comprehensive Metabolic Panel (11/12/22 00:28) Myoglobin Serum (11/12/22 00:28) Protime With Inr (11/12/22 00:28) Partial Thromboplastin Time (11/12/22 00:28) O2 (11/12/22 00:28) Monitor-Rhythm Ecg Trace Only (11/12/22 00:28) Lipid Panel (11/13/22 06:00) Ed Iv/Invasive Line Start (11/12/22 00:28) Troponin I Jonh (11/12/22 00:28) Aspirin Chewable Tablet (Baby Aspirin Ch (11/12/22 00:45) Aspirin Chewable Tablet (Baby Aspirin Ch (11/12/22 00:35) Bnp Jonh (11/12/22 02:11) Troponin I Jonh (11/12/22 02:11) Morphine Injection (Morphine Injection (11/12/22 02:30) Furosemide Injection (Lasix Injection) (11/12/22 03:05) Medications Given in ED Current Medications Medications Dose Ordered Sig/Nicole Route Start Time Stop Time Status Last Admin Dose Admin Aspirin 324 mg ONCE ONCE PO 11/12/22 00:45 11/12/22 00:46 DC 11/12/22 00:36 324 MG Morphine Sulfate 4 mg ONCE ONCE IVP 11/12/22 02:30 11/12/22 02:32 DC 11/12/22 02:43 4 MG Vital Signs/I&O 11/12/22 11/12/22 00:14 02:30 Temp 36.9 Pulse 88 Resp 24 B/P (MAP) 133/100 (111) Pulse Ox 97 O2 Delivery Room Air Nasal Cannula O2 Flow Rate 2.00 Blood Pressure Mean: 111 Progress Progress Note : Progress Note Seen and evaluated. IV, labs including CBC, CMP, coags and troponin ordered. Chest x-ray and EKG ordered. ASA 324 mg p.o. ordered. Monitor patient. Differential diagnosis includes cardiac event, heart failure, chest wall pain 0 215: CBC reviewed and grossly normal. Coags grossly normal. Chemistry is grossly normal but troponin is slightly elevated at 0.036. We will repeat troponin and check BMP. Patient placed on oxygen as he would desat to the mid 80s while sleeping. Monitor patient. My chest x-ray interpretation as below. 0309: Case discussed with Dr. Carson. Patient does have further elevation of his troponin to 0.037 and BNP was noted to be greater than 1400 (double previous hospitalization). He did receive morphine 4 mg IV for chest pain which is helped. Given his elevation in BNP as well as very slight elevation of troponin, admission is indicated. Patient is again requiring oxygen especially while sleeping and this may be part of the culprit for his heart failure. This was discussed with Dr. Carson as well. All findings and concerns discussed with patient and family who agree with admission, inpatient status. Patient will go to cardiac stepdown. Patient requested full code. Initial ECG Impression Date: November 12, 2022 Initial ECG Impression Time: 00:22 Initial ECG Rate: 84 Comment Paced rhythm with leftward axis. No evidence of ST elevation WA. Interpreted by me. Differential diagnosis includes cardiac event, pleuritic chest pain, heart failure Diagnostic Imaging Diagonstic Imaging: Xray Plain Films/CT/US/NM/MRI: chest Comments Chest x-ray shows vascular congestion and left pleural effusion on my interpretation. Pending radiology report. Reviewed: Reviewed by Me Departure Communication (Admissions) Time/Spoke to Admitting Phy: 03:09 Impression Primary Impression: Acute on chronic heart failure Qualified Codes: I50.9 - Heart failure, unspecified Additional Impressions: Chest pain Qualified Codes: R07.9 - Chest pain, unspecified Elevated troponin Disposition: 09 ADMITTED INPATIENT Condition: Stable Admissions Decision to Admit Reason: Admit from ER (General) Decision to Admit/Date: November 12, 2022 Time/Decision to Admit Time: 03:09 Departure-Patient Inst. Referrals: AMANDA SLADE DO (PCP) Primary Care Physician EUSEBIO TAVARES APRN (Family) Primary Care Physician RAFA JOHNSTON MD November 12, 2022 02:06
[2022-11-12] MEDS ORDERED: morphine INJ 10 MG/ML 1ML (SYR OR VIAL) IVP ONE (02:30)
[2022-11-12] MEDS ORDERED: FUROSEMIDE 40 MG/4 ML INJ (LASIX) IV STA (03:05)
[2022-11-12 05:00] VITALS: BP 119/87
[2022-11-12] MEDS ORDERED: PATIENT MAY USE OWN MEDS, ALL PO SCH (05:00)
[2022-11-12] MEDS: CATHETER FLUSH 10 ML SYR IVP SCH ×3 (05:14→20:01)
[2022-11-12] MEDS ORDERED: NITROGLYCERIN 0.4 MG SL TABS BTL 25'S SL PRN (05:15)
[2022-11-12] MEDS ORDERED: ONDANSETRON 4 MG/2 ML (SDV) Z0FRAN IVP PRN (05:15)
[2022-11-12] MEDS ORDERED: morphine INJ 4 MG/ML 1 ML (VIAL/SYRINGE) IV PRN (05:15)
[2022-11-12 07:25] VITALS: BP 104/86
--- NOTE | 2022-11-12 07:26 | Diagnostic Imaging Report ---
INDICATION: Chest pain. COMPARISON: 10/27/2022. DISCUSSION: Single portable upright view of the chest was obtained. Cardiomegaly is stable. Left-sided pacemaker stable. There is increase in central venous congestion. There are new mixed interstitial alveolar infiltrates, mild, concerning for developing pulmonary edema. No pleural fluid or pneumothorax. No osseous abnormality. IMPRESSION: 1. Cardiomegaly with suspected developing failure. Dictated by: Dictated on workstation # [id number]
[2022-11-12] MEDS ORDERED: KCL 20 MEQ TAB (K-DUR) PO NR (08:45)
--- NOTE | 2022-11-12 09:20 | History & Physical-Hospitalist ---
History of Present Illness HPI/Chief Complaint Pt is a 56yoCM PMH HTN, HLD, HFrEF s/p AICD who presented to the ER due to chest pain and SOB. He was just here on 10/27 for similar symptoms and was diuresed and did well and was able to go home. He reports feeling ok for the most part but has been getting more dyspneic with activity. He also gets exertional chest pain. He was found to have a mildly elevated troponin but it was similar to the elevation from his last visit. His BNP was elevated from 786-14 75 this visit and he was mildly hypoxic requiring 2 L of oxygen to maintain his sats above 90. He was admitted for further diuresis. This morning he reports feeling okay and denies any chest pain but also states he has not been out of bed and has just been laying there. He has no other complaints at this time. Source: patient Date Seen 11/12/22 Time Seen by a Provider: 09:20 Attending Physician Margoth Hamilton Aprn PCP Admitting Physician: Candie Carson MD Attending Physician: Candie Carson MD Referring Physician Date of Admission November 12, 2022 at 3:58 am Home Medications & Allergies Home Medications Reviewed patient Home Medication Reconciliation performed by pharmacy medication reconciliations remanufacturing technician and/or nursing. Patients Allergies have been reviewed. Allergies Allergies Coded Allergies Penicillins (Unverified Allergy, Unknown, 03/02/12) diphenhydramine HCl (Verified Allergy, Unknown, 09/28/13) latex (Unverified Adverse Reaction, Mild, rash, 09/28/13) Past Kyyoeie-Zbuoyr-Arzgtu Hx Patient Social History Marrital Status: Tobacco Use?: No Substance use?: Yes Substance type: Marijuana Immunizations Up To Date First/Initial COVID19 Vaccinat: NO Second COVID19 Vaccination Eric: NO Hepatitis A: No Hepatitis B: No Seasonal Allergies Seasonal Allergies: No Current Status Communicates: Verbally Primary Language: Tongan Preferred Spoken Language: Tongan Is interpretation needed?: No Past Medical History Surgeries: Appendectomy, Cardiac, Orthopedic Asthma, COPD Hypertension Chronic Back Pain Sleep Difficulties Adverse Reaction/Blood Tranf: No Family Medical History Reviewed Nursing Family Hx No Pertinent Family Hx Review of Systems Constitutional: see HPI Physical Exam Physical Exam Vital Signs Vital Signs - First Documented 11/12/22 11/12/22 00:14 02:30 Temp 36.9 Pulse 88 Resp 24 B/P (MAP) 133/100 (111) Pulse Ox 97 O2 Delivery Room Air O2 Flow Rate 2.00 Capillary Refill : Less Than 3 Seconds Height, Weight, BMI Height: 5'7" Weight: 200lbs. 6.4oz. [id number]; 29.91 BMI Method:Estimated General Appearance: No Apparent Distress, Chronically ill, Thin Respiratory: Lungs Clear, No Respiratory Distress Cardiovascular: Regular Rate, Rhythm, No JVD Gastrointestinal: Normal Bowel Sounds, Non Tender Extremity: No Calf Tenderness, No Pedal Edema Neurologic/Psychiatric: Alert, Oriented x3 Results Results/Procedures Labs Laboratory Tests 11/12/22 00:20 Patient resulted labs reviewed. Imaging: Reviewed Imaging Report Imaging [facility], [place] NAME: KIRK SANTOS [facility] REC#: [id number] PT STATUS: ADM IN : 1965 PHYSICIAN: RAFA JOHNSTON MD ADMIT DATE: 11/12/22/[facility] Signed Date of Exam:11/12/22 CHEST 1 VIEW, AP/PA ONLY INDICATION: Chest pain. COMPARISON: 10/27/2022. DISCUSSION: Single portable upright view of the chest was obtained. Cardiomegaly is stable. Left-sided pacemaker stable. There is increase in central venous congestion. There are new mixed interstitial alveolar infiltrates, mild, concerning for developing pulmonary edema. No pleural fluid or pneumothorax. No osseous abnormality. IMPRESSION: 1. Cardiomegaly with suspected developing failure. Dictated by: Dictated on workstation # [id number] Dict: 11/12/22723 Trans: 11/12/22 09 CVB [id number] Interpreted by: JESS MEDINA MD Electronically signed by: JESS MEDINA MD 11/12/22907 Assessment/Plan Admission Diagnosis CHF Exacerbation Admission Status: Observation Assessment and Plan CHF Exacerbation- acutely decompensated heart failure HTN HLD Continue lasix BP soft this AM with Lasix so hold home metoprolol and lisinopril for now Monitor I/Os- none documented yet so unable to assess response to lasix Wean oxygen Elevated troponin, essentially stable on repeat Cardiology consulted, appreciate recs Hopefully home tomorrow if doing well Noctunal oximetry ordered Diagnosis/Problems Diagnosis/Problems (1) Hypertension (2) Acute exacerbation of congestive heart failure Status: Acute (3) Chest pain Status: Acute Qualifiers: Chest pain type: unspecified Qualified Codes: R07.9 - Chest pain, unspecified (4) Elevated troponin Status: Acute (5) Hypokalemia Status: Acute Clinical Quality Measures AMI/AHF: ASA po Prior to arrival: CANDIE Willis MD November 12, 2022 9:20 am
[2022-11-12] MEDS: FUROSEMIDE 40 MG/4 ML INJ (LASIX) IV SCH ×2 (10:04→20:01)
[2022-11-12] MEDS: ASPIRIN E.C. 81 MG (ECOTRIN) TAB PO SCH (10:50)
[2022-11-12 11:16] VITALS: BP 128/95
--- NOTE | 2022-11-12 15:19 | Consultation-Cardiology ---
HPI-Cardiology Cardiology Consultation: Date of Consultation 11/12/22 Time Seen by a Provider: 15:30 Date of Admission Attending Physician Margoth Hamilton Aprn Admitting Physician Admitting Physician: Candie Carson MD Attending Physician: Candie Carson MD Consulting Physician LORENA AGUILAR MD, MA, FACP, FACC, [facility], CCDS Physician requesting consult: Dr. Carson HPI: Chief Complaint: Shortness of breath 56 yo man with several days of vague, mild, constant L upper chest discomfort w/o radiation or aggravating or relieving factors, vary from dull to sharp. He has also had increasing shortness of breath. Does not report new swelling. Denies fever or chills. Notes gen malaise. Says compliant with meds. Review of Systems-Cardiology Review of Systems Constitutional: malaise, tiredness; No weight loss, No weight gain Eyes: No vision change Ears/Nose/Throat: No ear discharge, No nasal drainage, No recent hearing loss Respiratory: As described under HPI Cardiovascular: As described under HPI Gastrointestinal: No diarrhea, No nausea, No vomiting Genitourinary: No dysuria, No hematuria, No pain, No urine frequency changes Musculoskeletal: No back pain Skin: No rash, No ulcerations Psychiatric/Neurological: No seizure, No focal weakness, No syncope Hematologic: No bleeding abnormalities MBU-Pfiwea-Dddpdk Hx Patient Social History Marrital Status: Former smoker/When Quit: Jul 09, 1993 Have you traveled recently?: No Substance type: Marijuana Past Medical History PMH As described under Assessment. Family Medical History Family Medical History: Family h/o father having CAD, CABG and PPM. Allergies and Home Medications Allergies Coded Allergies: Penicillins (Unverified Allergy, Unknown, 03/02/12) diphenhydramine HCl (Verified Allergy, Unknown, 09/28/13) latex (Unverified Adverse Reaction, Mild, rash, 09/28/13) Patient Home Medication List Home Medication List Reviewed: Yes Atorvastatin Calcium (Atorvastatin Calcium) 40 Mg Tablet, 40 MG PO DAILY, (Reported) Entered as Reported by: DESHAUN VILLAREAL on 10/28/22 0920 Furosemide (Furosemide) 40 Mg Tablet, 40 MG PO BID Prescribed by: CANDIE CARSON on 10/28/22 1146 Gabapentin (Gabapentin) 800 Mg Tablet, 800 MG PO, (Reported) Entered as Reported by: FREDDY ROSALES on 08/04/15 0526 Lisinopril (Lisinopril) 20 Mg Tablet, 20 MG PO DAILY, (Reported) Entered as Reported by: DESHAUN VILLAREAL on 10/28/22 0947 Metoprolol Succinate (Metoprolol Succinate) 100 Mg Tab.er.24h, 100 MG PO DAILY, (Reported) Entered as Reported by: DESHAUN VILLAREAL on 10/28/22 0947 Potassium Chloride (Potassium Chloride) 20 Meq Tab.er.prt, 20 MEQ PO DAILY, (Reported) Entered as Reported by: DESHAUN VILLAREAL on 10/28/22 09 Spironolactone (Spironolactone) 25 Mg Tablet, 25 MG PO DAILY, (Reported) Entered as Reported by: DESHAUN VILLAREAL on 10/28/22 0947 Physical Exam-Cardiology Physical Exam Vital Signs/I&O 11/12/22 11/12/22 11/12/22 11/12/22 04:55 05:00 05:05 07:13 Temp 36.0 Pulse 70 72 75 Resp 14 B/P (MAP) 119/87 (98) Pulse Ox 99 99 O2 Delivery Nasal Cannula Nasal Cannula O2 Flow Rate 2.00 2.00 11/12/22 11/12/22 11/12/22 11/12/22 07:25 07:45 11:16 12:20 Temp 36.5 36.1 Pulse 77 82 87 Resp 25 14 B/P (MAP) 104/86 (92) 128/95 (106) Pulse Ox 98 98 96 O2 Delivery Nasal Cannula Nasal Cannula O2 Flow Rate 2.00 11/12/22 16:10 Temp 36.5 Pulse 87 Resp 27 B/P (MAP) 109/90 (96) Pulse Ox 98 O2 Delivery Nasal Cannula O2 Flow Rate 2.00 Capillary Refill : Less Than 3 Seconds Constitutional: AAO x 3, well-developed, well-nourished HEENT: EOMI, hearing is well preserved; No xanthelasmas are seen Neck: carotid pulses are 2 + bilaterally, with good upstrokes Respiratory: No accessory muscle use; chest expansion is symmetric, chest is bilaterally symmetric, other (good, bilateral air entry; a few coarse and fine basal crackles) Cardiovascular: regular rate-rhythm, S1 and S2, systolic murmur (soft BETZY at card base) Gastrointestinal: No tender; soft; No guarding, No rebound; audible bowel sounds Extremities: No clubbing, No cyanosis Neurologic/Psychiatric: other (moves all limbs equally) Skin: No rash on exposed areas, No ulcerations on exposed areas Data Review Labs Laboratory Tests 11/12/22 00:20: White Blood Count 7.2, Red Blood Count 4.82, Hemoglobin 13.8, Hematocrit 40, Mean Corpuscular Volume 83, Mean Corpuscular Hemoglobin 29, Mean Corpuscular Hemoglobin Concent 34, Red Cell Distribution Width 15.6H, Platelet Count 138, Mean Platelet Volume 12.8H, Immature Granulocyte % (Auto) 0, Neutrophils (%) (Auto) 60, Lymphocytes (%) (Auto) 30, Monocytes (%) (Auto) 7, Eosinophils (%) (Auto) 3, Basophils (%) (Auto) 1, Neutrophils # (Auto) 4.3, Lymphocytes # (Auto) 2.2, Monocytes # (Auto) 0.5, Eosinophils # (Auto) 0.2, Basophils # (Auto) 0.0, Immature Granulocyte # (Auto) 0.0, Percent Immature Platelet Fraction 13.4H, Prothrombin Time 14.1, INR Comment 1.0, Activated Partial Thromboplast Time 30, Sodium Level 141, Potassium Level 3.4L, Chloride Level 108H, Carbon Dioxide Level 22, Anion Gap 11, Blood Urea Nitrogen 13, Creatinine 1.13, Estimat Glomerular Filtration Rate 76, BUN/Creatinine Ratio 12, Glucose Level 143H, Calcium Level 9.3, Corrected Calcium 9.3, Magnesium Level 1.9, Total Bilirubin 0.9, Aspartate Amino Transf (AST/SGOT) 21, Alanine Aminotransferase (ALT/SGPT) 24, Alkaline Phosphatase 81, Myoglobin 54.6, Troponin I 0.036H, Total Protein 7.2, Albumin 4.0 11/12/22 02:20: Troponin I 0.037H, B-Type Natriuretic Peptide 1475.4H 11/12/22 08:00: Troponin I 0.041H Laboratory Tests 11/12/22 00:20 A/P-Cardiology Assessment/Admission Diagnosis HFrEF - Echo 10/29: LVEF 20-25%, mod enlargement of the right heart, mild to mod MR, PASP 45-50 mmHg - Reports a h/o card cath by Dr Jeffery in [place], [place] and states it did not signif icant CAD - Status post ICD placement. Implanted in Aug [address] Hardy in [place], [place], and followed by him (per pt report) Hypertension - currently controlled Chronic, mild troponin elevation, unchanged (0.04-0.08 range) - likely due to chronic systolic CHF (type 2 [place]) - no evidence of type 1 [place] COPD - managed by Hospitalist gaby CARTER H/O ETOH abuse - quit in Aug 2021 following device implant H/O tobaccoism - quit 20 yrs ago Chronic back/hip pain H/O daily marijuana use - cessation advised Discussion and Recomendations * Treat with furosemide, spironolactone, sacubitril/valsartan, metoprolol succinate as tolerated by bp and renal function * Discussed treatment plan and its rationale and answered questions and advised compliance * Close f/u on labs Clinical Quality Measures AMI/AHF: ASA po Prior to arrival: LORENA Bonilla MD FACP FAC CCDS November 12, 2022 15:19
[2022-11-12 16:10] VITALS: BP 109/90
[2022-11-12] MEDS ORDERED: SPIRONOLACTONE 25 MG (ALDACTONE) TAB PO NR (16:45)
[2022-11-12 19:24] VITALS: BP 119/84
[2022-11-12] MEDS: SACUBITRIL/VALSARTAN 24/26 MG (ENTRESTO) TABLET PO SCH (20:01)
[2022-11-12 22:48] VITALS: BP 115/71
[2022-11-13] VITALS: BP 112/82
[2022-11-13 03:59] LABS: HEMATOCRIT 41 % (40-54); HEMOGLOBIN 14.1 g/dL (13.3-17.7); MEAN CORPUSCULAR HEMOGLOBIN 28 pg (25-34); MEAN CORPUSCULAR HGB CONC 35 g/dL (32-36); MEAN CORPUSCULAR VOLUME 82 fL (80-99); MEAN PLATELET VOLUME 12.8 fL (9.0-12.2); PLATELET COUNT 143 10^3/uL (130-400); WHITE BLOOD COUNT 9.3 10^3/uL (4.3-11.0)
[2022-11-13 04:00] VITALS: BP 104/69
[2022-11-13 04:23] LABS: CALCIUM 8.8 MG/DL (8.5-10.1); CREATININE SERUM 0.94 MG/DL (0.60-1.30); POTASSIUM 3.4 MMOL/L (3.6-5.0)
[2022-11-13] MEDS: CATHETER FLUSH 10 ML SYR IVP SCH (07:14)
--- NOTE | 2022-11-13 08:35 | Progress Note - Cardiology ---
Cardiology SOAP Progress Note Subjective: Sitting up in bed States he feels better No c/o CP or SOB or palpitations States he is to see his primary vascular ultrasound technician Dr. Jeffery and Dr. Hardy tomorrow Objective: I&O/Vital Signs Weight (Pounds): 200 Weight (Ounces): 6.4 Weight (Calculated Kilograms): 90.210047 Constitutional: AAO x 3, well-developed, well-nourished Respiratory: No accessory muscle use; chest expansion is symmetric, chest is bilaterally symmetric, other (good, bilateral air entry; a few coarse and fine basal crackles) Cardiovascular: regular rate-rhythm, S1 and S2, systolic murmur (soft BETZY at card base) Gastrointestional: No tender; soft; No guarding, No rebound; audible bowel sounds Extremities: No clubbing, No cyanosis; no lower extremity edema bilateral Neurologic/Psychiatric: other (moves all limbs equally) Skin: No rash on exposed areas, No ulcerations on exposed areas Results/Procedures: Labs A/P: Assessment: HFrEF - Echo 10/29: LVEF 20-25%, mod enlargement of the right heart, mild to mod MR, PASP 45-50 mmHg - Reports a h/o card cath by Dr Jeffery in [place], [place] and states it did not significant CAD - Status post ICD placement. Implanted in Aug [address] Hardy in [place], [place], and followed by him (per pt report) Hypertension - currently controlled Chronic, mild troponin elevation, unchanged (0.04-0.08 range) - likely due to chronic systolic CHF (type 2 [place]) - no evidence of type 1 [place] COPD - managed by Hospitalist gaby CARTER H/O ETOH abuse - quit in Aug 2021 following device implant H/O tobaccoism - quit 20 yrs ago Chronic back/hip pain H/O daily marijuana use - cessation advised Plan: * Continue furosemide (change to oral), spironolactone, sacubitril/valsartan, metoprolol succinate as tolerated by bp and renal function * Discussed treatment plan and its rationale and answered questions and advised compliance * Close f/u on labs - replace potassium * States he has an appt to see Dr. Jeffery his primary vascular ultrasound technician and Dr. Hardy tomorrow Clinical Quality Measures AMI/AHF: ASA po Prior to arrival: No BAIMA,TRENA L RO[address] ENGINEER FREIGHT November 13, 2022 08:35
[2022-11-13] MEDS ORDERED: KCL 20 MEQ TAB (K-DUR) PO ONE (08:45)
[2022-11-13] MEDS ORDERED: SPIRONOLACTONE 25 MG (ALDACTONE) TAB PO SCH (09:00)
[2022-11-13] MEDS ORDERED: meTOproloL SUCCINATE 50 MG (TOPROL XL) TAB PO SCH (09:00)
[2022-11-13] MEDS ORDERED: GABAPENTIN 600 MG (NEURONTIN) TAB PO ONE (09:00)
[2022-11-13] MEDS: SACUBITRIL/VALSARTAN 24/26 MG (ENTRESTO) TABLET PO SCH (09:16)
[2022-11-13] MEDS: ASPIRIN E.C. 81 MG (ECOTRIN) TAB PO SCH (09:16)
[2022-11-13] MEDS: FUROSEMIDE 40 MG/4 ML INJ (LASIX) IV SCH (09:17)
[2022-11-13] MEDS ORDERED: ASPI-1238 PO (10:45)
[2022-11-13] MEDS ORDERED: SACU1TAB2 PO (10:45)
[2022-11-13 11:08] VITALS: BP 136/108
--- NOTE | 2022-11-13 13:39 | Progress Note - Cardiology ---
Cardiology SOAP Progress Note Subjective: No shortness of breath or cp or palp or syncope No n/v/d No focal weakness No swelling Wishes to go home Objective: I&O/Vital Signs 11/13/22 11/13/22 11/13/22 11/13/22 04:00 07:14 08:00 11:08 Pulse 71 76 Resp 12 B/P (MAP) 104/69 (81) 136/108 Pulse Ox 94 94 O2 Delivery Room Air Room Air Room Air 11/13/22 00:00 Intake Total 2300 ml Output Total 4150 ml Balance -1850 ml Weight (Pounds): 200 Weight (Ounces): 6.4 Weight (Calculated Kilograms): 90.435315 Constitutional: AAO x 3, well-developed, well-nourished Respiratory: No accessory muscle use; chest expansion is symmetric, chest is bilaterally symmetric, other (good, bilateral air entry; a few coarse and fine basal crackles) Cardiovascular: regular rate-rhythm, S1 and S2, systolic murmur (soft BETZY at card base) Gastrointestional: No tender; soft; No guarding, No rebound; audible bowel sounds Extremities: No clubbing, No cyanosis; no lower extremity edema bilateral Neurologic/Psychiatric: other (moves all limbs equally) Skin: No rash on exposed areas, No ulcerations on exposed areas Results/Procedures: Labs Laboratory Tests 11/13/22 03:36: White Blood Count 9.3, Red Blood Count 4.98, Hemoglobin 14.1, Hematocrit 41, Mean Corpuscular Volume 82, Mean Corpuscular Hemoglobin 28, Mean Corpuscular Hemoglobin Concent 35, Red Cell Distribution Width 15.2H, Platelet Count 143, Mean Platelet Volume 12.8H, Sodium Level 140, Potassium Level 3.4L, Chloride Level 103, Carbon Dioxide Level 26, Anion Gap 11, Blood Urea Nitrogen 14, Creatinine 0.94, Estimat Glomerular Filtration Rate 95, BUN/Creatinine Ratio 15, Glucose Level 116H, Calcium Level 8.8, Triglycerides Level 78, Cholesterol Level 114, LDL Cholesterol Direct 67, VLDL Cholesterol 16, HDL Cholesterol 33L Laboratory Tests 11/12/22 00:20 11/13/22 03:36 A/P: Assessment: HFrEF - Echo 10/29: LVEF 20-25%, mod enlargement of the right heart, mild to mod MR, PASP 45-50 mmHg - Reports a h/o card cath by Dr Jeffery in [place], [place] and states it did not significant CAD - Status post ICD placement. Implanted in Aug [address] Hardy in [place], [place], and followed by him (per pt report) Hypertension - currently controlled Chronic, mild troponin elevation, unchanged (0.04-0.08 range) - likely due to chronic systolic CHF (type 2 [place]) - no evidence of type 1 [place] COPD - managed by Hospitalist gaby CARTER H/O ETOH abuse - quit in Aug 2021 following device implant H/O tobaccoism - quit 20 yrs ago Chronic back/hip pain H/O daily marijuana use - cessation advised Plan: * Replenish K * Continue furosemide (change to oral), spironolactone, sacubitril/valsartan, metoprolol succinate as tolerated by bp and renal function * Discussed treatment plan and its rationale and answered questions and advised compliance * States he has an appt to see Dr. Jeffery his primary lemon grower and Dr. Hardy tomorrow Clinical Quality Measures AMI/AHF: ASA po Prior to arrival: LORENA Bonilla MD FACP FAC CCDS November 13, 2022 13:39
--- NOTE | 2022-11-13 16:44 | Discharge Summary ---
Discharge Summary Hospital Course Problems/Dx: (1) Acute exacerbation of congestive heart failure Status: Acute (2) Hypertension Status: Chronic (3) Chest pain Status: Acute Qualifiers: Qualified Codes: R07.9 - Chest pain, unspecified (4) Elevated troponin Status: Acute (5) Hypokalemia Status: Acute Hospital Course Date of Admission: November 12, 2022 at 03:58 Admission Diagnosis : Acute on chronic HFrEF Family Physician/Provider: Margoth Hamilton Aprn Date of Discharge: 11/13/22 Discharge Diagnosis: Acute on chronic HFrEF Hospital Course: Rommel Dave is a 56 year old male with HFrEF who was admitted with acute on chronic HFrEF. Cardiology was consulted and assisted with his care. He was diuresed. He was started on Entresto. He has follow up scheduled with his day care home mother tomorrow. He has an appointment to establish with a PCP at [facility]. He was discharged home in stable condition. Labs and Pending Lab Test: Laboratory Tests 11/13/22 03:36: White Blood Count 9.3, Red Blood Count 4.98, Hemoglobin 14.1, Hematocrit 41, Mean Corpuscular Volume 82, Mean Corpuscular Hemoglobin 28, Mean Corpuscular Hemoglobin Concent 35, Red Cell Distribution Width 15.2H, Platelet Count 143, Mean Platelet Volume 12.8H, Sodium Level 140, Potassium Level 3.4L, Chloride Level 103, Carbon Dioxide Level 26, Anion Gap 11, Blood Urea Nitrogen 14, Creatinine 0.94, Estimat Glomerular Filtration Rate 95, BUN/Creatinine Ratio 15, Glucose Level 116H, Calcium Level 8.8, Triglycerides Level 78, Cholesterol Level 114, LDL Cholesterol Direct 67, VLDL Cholesterol 16, HDL Cholesterol 33L Home Meds Active Aspirin EC (Aspirin) 81 Mg Tablet.dr 81 Mg PO DAILY 30 Days Entresto 24 mg-26 mg Tablet (Sacubitril/Valsartan) 24 Mg-26 Mg Tablet 1 Tab PO BID 30 Days Furosemide 40 Mg Tablet 40 Mg PO BID Reported Atorvastatin Calcium 40 Mg Tablet 40 Mg PO DAILY Potassium Chloride 20 Meq Tab.er.prt 20 Meq PO DAILY Spironolactone 25 Mg Tablet 25 Mg PO DAILY Metoprolol Succinate 100 Mg Tab.er.24h 100 Mg PO DAILY Gabapentin 800 Mg Tablet 800 Mg PO Assessment/Pt Instructions See instructions Discharge Planning: <30 minutes discharge planning Discharge Instructions Discharge Diet: Low Sodium Diet Discharge Physical Examination Vital Signs Vital Signs Date Time Temp Pulse Resp B/P (MAP) Pulse Ox O2 Delivery O2 Flow Rate FiO2 11/13/22 11:08 136/108 Room Air 11/13/22 08:00 94 11/13/22 07:14 76 11/13/22 04:00 12 11/12/22 20:00 2.00 11/12/22 19:30 36.4 General Appearance: No Apparent Distress, WD/WN Respiratory: Lungs Clear, No Respiratory Distress Cardiovascular: Regular Rate, Rhythm, No Murmur Gastrointestinal: Normal Bowel Sounds, Soft Extremity: Non Tender, Pedal Edema Skin: Normal Color, Warm/Dry Neurologic/Psychiatric: Alert, Normal Mood/Affect Allergies: Coded Allergies: Penicillins (Unverified Allergy, Unknown, 03/02/12) diphenhydramine HCl (Verified Allergy, Unknown, 09/28/13) latex (Unverified Adverse Reaction, Mild, rash, 09/28/13) Copy Copies To 1: [facility] Discharge Summary Date of Admission November 12, 2022 at 03:58 Date of Discharge November 13, 2022 at 11:08 Discharge Date: November 13, 2022 Discharge Time: 11:08 Admission Diagnosis CHF Exacerbation Consults/Procedures Consulations Cardiology Discharge Diagnosis (1) Acute exacerbation of congestive heart failure Status: Acute (2) Chest pain Status: Acute Qualifiers: Qualified Codes: R07.9 - Chest pain, unspecified (3) Elevated troponin Status: Acute (4) Hypokalemia Status: Acute (5) Hypertension Status: Chronic Clinical Quality Measures AMI/AHF: ASA po Prior to arrival: CINDY Cai MD November 13, 2022 16:43
== END 2022-11-13 11:08 | disposition home or self-care (01) | DRG 280 ==
LOC: EDUNIT# 00:10 → ER 00:12 → CSD 03:58
PROVIDERS: ADMIT Family Medicine; ATTEND Internal Medicine
DX: I11.0 Hypertensive heart disease with heart failure (principal); I50.23 Acute on chronic systolic (congestive) heart failure; I21.A1 Myocardial infarction type 2; J90 Pleural effusion, not elsewhere classified; E87.6 Hypokalemia; J44.9 Chronic obstructive pulmonary disease, unspecified; E78.00 Pure hypercholesterolemia, unspecified; I34.0 Nonrheumatic mitral (valve) insufficiency; M54.9 Dorsalgia, unspecified; F12.90 Cannabis use, unspecified, uncomplicated; Z95.0 Presence of cardiac pacemaker; Z88.0 Allergy status to penicillin; Z91.09 Other allergy status, other than to drugs and biological substances; Z79.899 Other long term (current) drug therapy
CPT/HCPCS: 36415; 71045; 80048; 80053; 80061; 83735; 83874; 83880; 84484; 85025; 85027; 85610; 85730; 93005; 93041

== ENCOUNTER 2022-12-24 15:22 | Emergency (ER) | payer OTHER, MEDICAID ==
[~2022-12-24 15:22] MED LIST changes: +ASPI-1238 PO; +SACU1TAB2 PO
--- NOTE | 2022-12-24 15:39 | ED Respiratory ---
General Chief Complaint: Respiratory Problems Stated Complaint: SOA Nursing Triage Note: pt presents to ED with c/o SOB, left-sided chest pain, weakness/fatigue, and BLE edema x a couple days. pt has hx of CHF. chest pain is reproduceable. Source: patient Exam Limitations: no limitations History of Present Illness Date Seen by Provider: Dec 24, 2022 Time Seen by Provider: 15:38 Initial Comments Patient is a 57-year-old male with a history of cardiomyopathy, COPD who presents to the emergency room with a chief complaint of feeling short of breath, feeling like a "nuisance" was tied around his neck, lower extremity swelling, generalized malaise and fatigue. Patient states this has been going on for 2 or 3 days. His finally convinced him to come to the emergency department. He does not check daily weights but thinks that he has been gaining weight. He states nothing really makes the shortness of breath or "nuisance" feeling any better. He states when he is in a room full of people that feeling gets a little worse. He denies fevers, chills, productive cough. No abdominal pain. No nausea or vomiting. No diarrhea or black or bloody stools. No problems with urination. He states that he is not using salt on his food, he is using Mrs. Rose. He has not skipped or missed any of his prescribed daily medications. He states he thinks he has a history of 1 stent but is not on any blood thinners. The pain around his neck does not radiate. Timing/Duration: other (2 or 3 days) Severity: moderate Associated Symptoms: dizziness, lightheadedness, shortness of breath Allergies and Home Medications Allergies Coded Allergies: Penicillins (Unverified Allergy, Unknown, 03/02/12) diphenhydramine HCl (Verified Allergy, Unknown, 09/28/13) latex (Unverified Adverse Reaction, Mild, rash, 09/28/13) Patient Home Medication List Home Medication List Reviewed: Yes Aspirin (Aspirin EC) 81 Mg Tablet.dr, 81 MG PO DAILY Prescribed by: CINDY ANDERSON on 11/13/22 1045 Atorvastatin Calcium (Atorvastatin Calcium) 40 Mg Tablet, 40 MG PO DAILY, (Reported) Entered as Reported by: DESHAUN VILLAREAL on 10/28/22 09 Furosemide (Furosemide) 40 Mg Tablet, 40 MG PO BID Prescribed by: CANDIE NUÑEZ on 10/28/22 1146 Gabapentin (Gabapentin) 800 Mg Tablet, 800 MG PO, (Reported) Entered as Reported by: FREDDY ROSALES on 08/04/15 0526 Metoprolol Succinate (Metoprolol Succinate) 100 Mg Tab.er.24h, 100 MG PO DAILY, (Reported) Entered as Reported by: DESHAUN VILLAREAL on 10/28/22 0947 Potassium Chloride (Potassium Chloride) 20 Meq Tab.er.prt, 20 MEQ PO DAILY, (Reported) Entered as Reported by: DESHAUN VILLAREAL on 10/28/22 0947 Sacubitril/Valsartan (Entresto 24 mg-26 mg Tablet) 24 Mg-26 Mg Tablet, 1 TAB PO BID Prescribed by: CINDY ANDERSON on 11/13/22 1045 Spironolactone (Spironolactone) 25 Mg Tablet, 25 MG PO DAILY, (Reported) Entered as Reported by: DESHAUN VILLAREAL on 10/28/22 0947 Review of Systems Review of Systems Constitutional: see HPI EENTM: other (Neck discomfort) Respiratory: short of breath Cardiovascular: no symptoms reported Gastrointestinal: no symptoms reported Genitourinary: no symptoms reported Musculoskeletal: other (Swelling) Skin: no symptoms reported All Other Systems Reviewed Negative Unless Noted: Yes Past Xojzxwd-Diaboc-Iwcfrh Hx Patient Social History Tobacco Use?: No Substance use?: Yes Substance type: Marijuana Alcohol Use?: No Pt feels they are or have been: No Immunizations Up To Date First/Initial COVID19 Vaccinat: NO Second COVID19 Vaccination Eric: NO Third COVID19 Vaccination Date: NO Seasonal Allergies Seasonal Allergies: No Past Medical History Surgery/Hospitalization HX: pacemaker, hypertension, high cholesterol, asthma, Surgeries: Yes Appendectomy, Cardiac, Orthopedic Respiratory: Yes Asthma, COPD Cardiac: Yes Hypertension Reproductive Disorders: No Musculoskeletal: Yes Chronic Back Pain Psychosocial: Yes Sleep Difficulties Adverse Reaction/Blood Tranf: No Family Medical History No Pertinent Family Hx Physical Exam Vital Signs - First Documented 12/24/22 15:31 Temp 36.9 Pulse 84 Resp 18 B/P (MAP) 120/94 (103) Pulse Ox 95 O2 Delivery Room Air Capillary Refill : Less Than 3 Seconds Height: 5'7" Weight: 200lbs. 6.4oz. [id number]; 29.91 BMI Method:Estimated General Appearance: WD/WN, no apparent distress Eyes: Bilateral Eye Normal Inspection, Bilateral Eye PERRL, Bilateral Eye EOMI HEENT: PERRL/EOMI Respiratory: lungs clear, normal breath sounds, no respiratory distress, no accessory muscle use Cardiovascular: regular rate, rhythm, other (2+ radial pulses bilaterally) Gastrointestinal: normal bowel sounds, non tender, soft Extremities: normal range of motion, non-tender, pedal edema Neurologic/Psychiatric: alert, normal mood/affect, oriented x 3 Skin: normal color, warm/dry Progress/Results/Core Measures Suspected Sepsis SIRS Temperature: Pulse: 84 Respiratory Rate: 18 Laboratory Tests 12/24/22 15:50: White Blood Count 8.0 Blood Pressure 120 /94 Mean: 103 Laboratory Tests 12/24/22 15:50: Creatinine 1.19, INR Comment 1.2, Platelet Count 154, Total Bilirubin 1.1H Results/Orders Lab Results Laboratory Tests Test 12/24/22 15:50 Range/Units White Blood Count 8.0 4.3-11.0 10^3/uL Red Blood Count 4.74 4.30-5.52 10^6/uL Hemoglobin 12.9 L 13.3-17.7 g/dL Hematocrit 40 40-54 % Mean Corpuscular Volume 84 80-99 fL Mean Corpuscular Hemoglobin 27 25-34 pg Mean Corpuscular Hemoglobin Concent 33 32-36 g/dL Red Cell Distribution Width 16.3 H 10.0-14.5 % Platelet Count 154 130-400 10^3/uL Mean Platelet Volume 11.7 9.0-12.2 fL Immature Granulocyte % (Auto) 0 % Neutrophils (%) (Auto) 76 H 42-75 % Lymphocytes (%) (Auto) 16 12-44 % Monocytes (%) (Auto) 6 0-12 % Eosinophils (%) (Auto) 1 0-10 % Basophils (%) (Auto) 1 0-10 % Neutrophils # (Auto) 6.1 1.8-7.8 X 10^3 Lymphocytes # (Auto) 1.3 1.0-4.0 X 10^3 Monocytes # (Auto) 0.4 0.0-1.0 X 10^3 Eosinophils # (Auto) 0.1 0.0-0.3 10^3/uL Basophils # (Auto) 0.1 0.0-0.1 10^3/uL Immature Granulocyte # (Auto) 0.0 0.0-0.1 10^3/uL Prothrombin Time 15.5 H 12.2-14.7 SEC INR Comment 1.2 0.8-1.4 Activated Partial Thromboplast Time 29 24-35 SEC Sodium Level 137 135-145 MMOL/L Potassium Level 3.8 3.6-5.0 MMOL/L Chloride Level 106 98-107 MMOL/L Carbon Dioxide Level 22 21-32 MMOL/L Anion Gap 9 5-14 MMOL/L Blood Urea Nitrogen 18 7-18 MG/DL Creatinine 1.19 0.60-1.30 MG/DL Estimat Glomerular Filtration Rate 71 BUN/Creatinine Ratio 15 Glucose Level 178 H 70-105 MG/DL Calcium Level 9.1 8.5-10.1 MG/DL Corrected Calcium 9.3 8.5-10.1 MG/DL Magnesium Level 2.0 1.6-2.4 MG/DL Total Bilirubin 1.1 H 0.1-1.0 MG/DL Aspartate Amino Transf (AST/SGOT) 25 5-34 U/L Alanine Aminotransferase (ALT/SGPT) 26 0-55 U/L Alkaline Phosphatase 86 40-136 U/L Troponin I 0.031 H <0.028 NG/ML B-Type Natriuretic Peptide 2059.2 H <100.0 PG/ML Total Protein 6.6 6.4-8.2 GM/DL Albumin 3.8 3.2-4.5 GM/DL My Orders Orders - HUMERA WARREN MD Cbc With Automated Diff (12/24/22 15:47) Magnesium (12/24/22 15:47) Chest 1 View, Ap/Pa Only (12/24/22 15:47) Ekg Tracing (12/24/22 15:47) Comprehensive Metabolic Panel (12/24/22 15:47) Protime With Inr (12/24/22 15:47) Partial Thromboplastin Time (12/24/22 15:47) O2 (12/24/22 15:47) Monitor-Rhythm Ecg Trace Only (12/24/22 15:47) Lipid Panel (12/25/22 06:00) Ed Iv/Invasive Line Start (12/24/22 15:47) Troponin I [place] (12/24/22 15:47) Bnp Jonh (12/24/22 15:47) Furosemide Injection (Lasix Injection) (12/24/22 16:45) Medications Given in ED Current Medications Medications Dose Ordered Sig/Nicole Route Start Time Stop Time Status Last Admin Dose Admin Furosemide 80 mg ONCE ONCE IVP 12/24/22 16:45 12/24/22 16:46 DC 12/24/22 17:13 80 MG Vital Signs/I&O 12/24/22 15:31 Temp 36.9 Pulse 84 Resp 18 B/P (MAP) 120/94 (103) Pulse Ox 95 O2 Delivery Room Air Capillary Refill : Less Than 3 Seconds Blood Pressure Mean: 103 Progress Note : Time: 16:45 Progress Note Patient seen and evaluated by me. Evaluation today includes "cardiac work-up" to include CBC, Chem-12, coags, troponin, single view chest x-ray, EKG and BNP. Pertinent physical exam findings well-developed well-nourished male no acute distress normal oxygen saturations on room air, 95%. No increased work of breathing or respiratory distress. Heart is regular, lungs demonstrate scattered crackles at the bases posteriorly. Abdomen is soft. He has 2-3+ pitting edema above his sock lines in the bilateral lower extremities. No focal neurologic deficits. Heart rate is in the 80s. Blood pressure is 120s over 94 at triage. Patient states compliant with medications avoids excessive salt intake. Differential diagnosis based on history and physical exam acute exacerbation of congestive failure, worsening renal function, metabolic derangement Patient labs, EKG and chest x-ray independently reviewed and interpreted by me. EKG shows sinus rhythm with frequent multifocal PVCs. No overt ST segment elevation, he has diffuse T wave inversion in V4, V5 and V6. This is compared to previous and is slightly different as priors are apparently 100% paced. Chest x-ray shows multifocal increased pulmonary vascularity consistent with congestive heart failure. CBC is normal, Chem-12 shows slightly increased total bilirubin at 1.1, slightly increased glucose at 178. Otherwise normal electrolytes, renal function liver function. BNP is as high as it has been since June 2022 at 2059.2. Troponin chronically elevated since June 2022 but at its lowest measurement 0.031. Coags show PT slightly increased to 15.5 normal INR normal PTT. Medical records from most recent hospitalizations over the spring and winter reviewed. He has had multiple evaluations by cardiology in house here. Suspicion is troponin leak secondary to chronic congestive failure as the patient has a history of chronic systolic congestive heart failure. He is not having active chest pain just some mild shortness of breath not requiring oxygen. Patient states that he is taking his Lasix twice daily 40 mg. He does not excessively salt his food. He has follow-up with his [facility] regional service manager and Dr. Hardy who implanted his defibrillator in February. We will give the patient 80 mg of Lasix here in the emergency department and co ntinue to monitor. Do not think at this time that the patient requires hospitalization as he is not in respiratory distress, does not have florid heart failure, does not have chest pain and is not requiring oxygen. Increasing his lasix to 60mg twice a day through Sunday. Encouraged complaince. ECG Initial ECG Impression Date: Dec 24, 2022 Initial ECG Impression Time: 15:59 Initial ECG Rate: 82 Comment sinus with frequent PVS's; ST wave inversion V4,5,6 Diagnostic Imaging Diagonstic Imaging: Xray Plain Films/CT/US/NM/MRI: chest Comments [facility], [facility]. [place], [place] NAME: KIRK SANTOS [facility] REC#: [id number] PT STATUS: REG ER : 1965 PHYSICIAN: HUMERA WARREN MD ADMIT DATE: 12/24/22/ER Signed Date of Exam:12/24/22 CHEST 1 VIEW, AP/PA ONLY EXAMINATION: Chest 1 view. HISTORY: Chest pain. COMPARISON: 11/12/2022. FINDINGS: Heart size and pulmonary vasculature are stable. Left-sided cardiac device is unchanged. There are patchy interstitial opacities seen throughout both lungs. No pleural effusion or pneumothorax. Degenerative changes of the thoracic spine. Osseous structures are otherwise intact. IMPRESSION: Patchy interstitial opacities throughout both lungs which can be seen with atelectasis, pulmonary edema or pneumonia in the appropriate clinical setting. Dictated by: Dictated on workstation # [id number] Dict: 12/24/22 1627 Trans: 12/24/22 1633 [facility] [id number] Interpreted by: KENNETH QUINTANA DO Electronically signed by: KENNETH QUINTANA DO 12/24/22 1771 Departure Impression Primary Impression: Acute exacerbation of congestive heart failure Qualified Codes: I50.9 - Heart failure, unspecified Additional Impression: Elevated troponin I level Disposition: 01 HOME, SELF-CARE Condition: Stable Departure-Patient Inst. Decision time for Depature: 17:24 Referrals: EUSEBIO TAVARES APRN (PCP/Family) Primary Care Physician Patient Instructions: Heart Failure, Adult (DC) Add. Discharge Instructions: I would like for you to increase your Lasix dosing to 60 mg twice a day starting tomorrow morning. Take a dose first thing early in the morning and your second dose around 3 PM. Do this until Sunday when you take your last dose of 60 mg then go back to your normal dosing schedule. Please call your regional service manager office tomorrow morning and see if you can get a sooner appointment. If you become more short of breath, if you are struggling to breathe or developing chest tightness please come back to the emergency department for reevaluation and likely admission. Do not drink any sodas over the next 2 or 3 days. Continue using Mrs. Rose or other salt substitute. Elevate your legs while you are at rest. Return to the emergency department for any new, concerning or emergent complaints. Copy Copies To 1: KIM KINCAID KATHRYN M MD Dec 24, 2022 15:39
[2022-12-24 15:56] LABS: BASOPHILS # (AUTO) 0.1 10^3/uL (0.0-0.1); BASOPHILS % (AUTO) 1 % (0-10); EOSINOPHILS # (AUTO) 0.1 10^3/uL (0.0-0.3); EOSINOPHILS % (AUTO) 1 % (0-10); HEMATOCRIT 40 % (40-54); HEMOGLOBIN 12.9 g/dL (13.3-17.7); LYMPHOCYTES # (AUTO) 1.3 X 10^3 (1.0-4.0); LYMPHOCYTES % (AUTO) 16 % (12-44); MEAN CORPUSCULAR HEMOGLOBIN 27 pg (25-34); MEAN CORPUSCULAR HGB CONC 33 g/dL (32-36); MEAN CORPUSCULAR VOLUME 84 fL (80-99); MEAN PLATELET VOLUME 11.7 fL (9.0-12.2); MONOCYTES # (AUTO) 0.4 X 10^3 (0.0-1.0); MONOCYTES % (AUTO) 6 % (0-12); NEUTROPHILS # (AUTO) 6.1 X 10^3 (1.8-7.8); NEUTROPHILS % (AUTO) 76 % (42-75); PLATELET COUNT 154 10^3/uL (130-400)
[2022-12-24 16:06] LABS: INR 1.2 (0.8-1.4); PROTHROMBIN TIME PATIENT 15.5 SEC (12.2-14.7)
[2022-12-24 16:07] LABS: ALBUMIN 3.8 GM/DL (3.2-4.5); POTASSIUM 3.8 MMOL/L (3.6-5.0)
[2022-12-24 16:08] LABS: CALCIUM 9.1 MG/DL (8.5-10.1)
[2022-12-24 16:09] LABS: TOTAL PROTEIN 6.6 GM/DL (6.4-8.2)
[2022-12-24 16:11] LABS: BILIRUBIN,TOTAL 1.1 MG/DL (0.1-1.0)
[2022-12-24 16:13] LABS: CREATININE SERUM 1.19 MG/DL (0.60-1.30)
--- NOTE | 2022-12-24 16:30 | Diagnostic Imaging Report ---
EXAMINATION: Chest 1 view. HISTORY: Chest pain. COMPARISON: 11/12/2022. FINDINGS: Heart size and pulmonary vasculature are stable. Left-sided cardiac device is unchanged. There are patchy interstitial opacities seen throughout both lungs. No pleural effusion or pneumothorax. Degenerative changes of the thoracic spine. Osseous structures are otherwise intact. IMPRESSION: Patchy interstitial opacities throughout both lungs which can be seen with atelectasis, pulmonary edema or pneumonia in the appropriate clinical setting. Dictated by: Dictated on workstation # [id number]
[2022-12-24] MEDS ORDERED: FUROSEMIDE 40 MG/4 ML INJ (LASIX) IVP ONE (16:45)
[2022-12-24 17:29] VITALS: BP 121/99
== END 2022-12-24 17:46 | disposition home or self-care (01) ==
LOC: EDUNIT# 15:22 → ER 15:25
DX: I11.0 Hypertensive heart disease with heart failure (principal); I50.23 Acute on chronic systolic (congestive) heart failure; R77.8 Other specified abnormalities of plasma proteins; Z91.040 Latex allergy status; Z28.310 Unvaccinated for COVID-19; Z95.0 Presence of cardiac pacemaker
CPT/HCPCS: 36415; 71045; 80053; 83735; 83880; 84484; 85025; 85610; 85730; 93005; 93041

== ENCOUNTER 2023-01-10 11:11 | Observation (INO) | payer OTHER, MEDICAID ==
[~2023-01-10] VITALS: Ht 172 cm; Wt 89.3 kg
[2023-01-10] VITALS (13 sets, daily range): BP systolic 98–128; BP diastolic 76–115
--- NOTE | 2023-01-10 11:28 | ED Chest Pain ---
General Chief Complaint: Respiratory Problems Stated Complaint: SOB Nursing Triage Note: PT PRESENTS TO ED VIA POV FROM HOME WITH COMPLAINTS OF SOB/WEAKNESS X 1 1/2 MONTHS AND CENTRAL CP X 2 DAYS Source: patient Exam Limitations: no limitations History of Present Illness Date Seen by Provider: Jan 10, 2023 Time Seen by Provider: 11:24 Initial Comments Patient is a 57-year-old male with a history of CHF, pacemaker, hypertension who presents the ED with shortness of breath and weakness over the past month and a half. Shortness of breath is fairly constant worse with walking. States he feels weak. Reports bilateral lower leg swelling. He states he has been seen a few different times for similar symptoms here in the ER. Patient states he saw his frit mixer yesterday regarding his ongoing symptoms and discussed potential open heart surgery. Patient developed substernal chest pressure rates 8 out of 10. Started 2 days ago and constant. Reports chronic cough. Denies history of COPD but reports history of asthma. States his frit mixer did decrease his Lasix from 60 mg twice a day to 40 mg. Denies of any fever, chills, nausea, vomit, diarrhea, abdominal pain, headache, dizziness. Allergies and Home Medications Allergies Coded Allergies: Penicillins (Unverified Allergy, Unknown, 03/02/12) diphenhydramine HCl (Verified Allergy, Unknown, 09/28/13) latex (Unverified Adverse Reaction, Mild, rash, 09/28/13) Patient Home Medication List Home Medication List Reviewed: Yes Aspirin (Aspirin EC) 81 Mg Tablet.dr, 81 MG PO DAILY, (Reported) Entered as Reported by: NICHOLAS TAMAYO on 01/11/231109 Last Action: Continued Atorvastatin Calcium (Atorvastatin Calcium) 40 Mg Tablet, 40 MG PO HS, (Reported) Entered as Reported by: DESHAUN VILLAREAL on 10/28/22 0947 Last Action: Continued Furosemide (Furosemide) 40 Mg Tablet, 40 MG PO BID, (Reported) Entered as Reported by: NICHOLAS TAMAYO on 01/11/231109 Last Action: Continued Gabapentin (Gabapentin) 800 Mg Tablet, 800 MG PO TID, (Reported) Entered as Reported by: FREDDY ROSALES on 08/04/15 0526 Last Action: Converted Lisinopril (Lisinopril) 20 Mg Tablet, 20 MG PO DAILY, (Reported) Entered as Reported by: NICHOLAS TAMAYO on 01/11/23 1110 Last Action: Continued Metoprolol Succinate (Metoprolol Succinate) 100 Mg Tab.er.24h, 100 MG PO DAILY, (Reported) Entered as Reported by: DESHAUN VILLAREAL on 10/28/22946 Last Action: Continued Potassium Chloride (Potassium Chloride) 20 Meq Tab.er.prt, 20 MEQ PO DAILY, (Reported) Entered as Reported by: DESHAUN VILLAREAL on 10/28/22946 Last Action: Continued Spironolactone (Spironolactone) 25 Mg Tablet, 25 MG PO DAILY, (Reported) Entered as Reported by: DESHAUN VILLAREAL on 10/28/22946 Last Action: Continued Discontinued Medications Aspirin (Aspirin EC) 81 Mg Tablet.dr, 81 MG PO DAILY Discontinued Reason: Duplicate Order Prescribed by: CINDY ANDERSON on 11/13/22 1045 Last Action: Discontinued Furosemide (Furosemide) 40 Mg Tablet, 40 MG PO BID Discontinued Reason: Duplicate Order Prescribed by: CANDIE NUÑEZ on 10/28/22 1146 Last Action: Discontinued Sacubitril/Valsartan (Entresto 24 mg-26 mg Tablet) 24 Mg-26 Mg Tablet, 1 TAB PO BID Discontinued Reason: No Longer Taking Prescribed by: CINDY ANDERSON on 11/13/22 104 Last Action: Discontinued Review of Systems Review of Systems Constitutional: No chills, No diaphoresis, No weakness EENTM: No Double Vision, No Eye Pain Respiratory: Cough, Shortness of Air Cardiovascular: Chest Pain Gastrointestinal: Denies Abdominal Pain, Denies Diarrhea, Denies Nausea, Denies Vomiting Genitourinary: Denies Burning, Denies Discharge Musculoskeletal: No back pain, No joint pain Skin: No change in color, No change in hair/nails All Other Systems Reviewed Negative Unless Noted: Yes Past Rlslrdi-Hxzpyw-Neklmu Hx Patient Social History Tobacco Use?: No Substance use?: Yes Substance type: Marijuana Alcohol Use?: No Pt feels they are or have been: No Immunizations Up To Date First/Initial COVID19 Vaccinat: NO Second COVID19 Vaccination Eric: NO Third COVID19 Vaccination Date: NO Seasonal Allergies Seasonal Allergies: No Past Medical History Surgery/Hospitalization HX: pacemaker, hypertension, high cholesterol, asthma, Surgeries: Yes Appendectomy, Cardiac, Orthopedic Respiratory: Yes Asthma, COPD Cardiac: Yes Hypertension Reproductive Disorders: No Musculoskeletal: Yes Chronic Back Pain Psychosocial: Yes Sleep Difficulties Adverse Reaction/Blood Tranf: No Family Medical History No Pertinent Family Hx Physical Exam Vital Signs Vital Signs - First Documented 01/10/23 01/10/23 11:15 13:00 Temp 36.0 Pulse 107 Resp 18 B/P (MAP) 143/102 (116) Pulse Ox 96 O2 Delivery Nasal Cannula O2 Flow Rate 2.00 Capillary Refill : Less Than 3 Seconds Height, Weight, BMI Height: 5'7" Weight: 200lbs. 6.4oz. [id number]; 30.00 BMI Method:Estimated General Appearance: No Apparent Distress, WD/WN HEENT: PERRL/EOMI, TMs Normal, Normal ENT Inspection, Pharynx Normal Neck: Full Range of Motion, Normal Inspection, Non Tender, Supple Respiratory: Chest Non Tender, Lungs Clear, Normal Breath Sounds, No Accessory Muscle Use, No Respiratory Distress Cardiovascular: No JVD, No Murmur, Tachycardia, Other (Bilateral lower extremit y edema +2) Gastrointestinal: Normal Bowel Sounds, No Organomegaly, No Pulsatile Mass, Non Tender Extremity: Normal Capillary Refill Neurologic/Psychiatric: Alert, Oriented x3, No Motor/Sensory Deficits, Normal Mood/Affect, screw machine setter II-XII Norm as Tested Skin: Normal Color, Warm/Dry Progress/Results/Core Measures Results/Orders Lab Results Laboratory Tests Test 01/10/23 11:24 01/10/23 13:45 Range/Units White Blood Count 8.6 4.3-11.0 10^3/uL Red Blood Count 4.88 4.30-5.52 10^6/uL Hemoglobin 13.1 L 13.3-17.7 g/dL Hematocrit 39 L 40-54 % Mean Corpuscular Volume 80 80-99 fL Mean Corpuscular Hemoglobin 27 25-34 pg Mean Corpuscular Hemoglobin Concent 34 32-36 g/dL Red Cell Distribution Width 16.3 H 10.0-14.5 % Platelet Count 104 L 130-400 10^3/uL Mean Platelet Volume 13.5 H 9.0-12.2 fL Immature Granulocyte % (Auto) 0 % Neutrophils (%) (Auto) 75 42-75 % Lymphocytes (%) (Auto) 19 12-44 % Monocytes (%) (Auto) 6 0-12 % Eosinophils (%) (Auto) 1 0-10 % Basophils (%) (Auto) 1 0-10 % Neutrophils # (Auto) 6.4 1.8-7.8 10^3/uL Lymphocytes # (Auto) 1.6 1.0-4.0 10^3/uL Monocytes # (Auto) 0.5 0.0-1.0 10^3/uL Eosinophils # (Auto) 0.0 0.0-0.3 10^3/uL Basophils # (Auto) 0.1 0.0-0.1 10^3/uL Immature Granulocyte # (Auto) 0.0 0.0-0.1 10^3/uL Percent Immature Platelet Fraction 12.9 H 0.0-7.6 % Prothrombin Time 14.5 12.2-14.7 SEC INR Comment 1.1 0.8-1.4 Activated Partial Thromboplast Time 25 24-35 SEC D-Dimer 4.19 H 0.00-0.49 UG/ML Sodium Level 136 135-145 MMOL/L Potassium Level 4.3 3.6-5.0 MMOL/L Chloride Level 107 98-107 MMOL/L Carbon Dioxide Level 19 L 21-32 MMOL/L Anion Gap 10 5-14 MMOL/L Blood Urea Nitrogen 20 H 7-18 MG/DL Creatinine 1.24 0.60-1.30 MG/DL Estimat Glomerular Filtration Rate 67 BUN/Creatinine Ratio 16 Glucose Level 199 H 70-105 MG/DL Calcium Level 9.1 8.5-10.1 MG/DL Corrected Calcium 9.3 8.5-10.1 MG/DL Magnesium Level 2.0 1.6-2.4 MG/DL Total Bilirubin 2.3 H 0.1-1.0 MG/DL Aspartate Amino Transf (AST/SGOT) 27 5-34 U/L Alanine Aminotransferase (ALT/SGPT) 25 0-55 U/L Alkaline Phosphatase 91 40-136 U/L Myoglobin 59.2 10.0-92.0 NG/ML Troponin I < 0.028 0.042 H <0.028 NG/ML B-Type Natriuretic Peptide 1718.4 H <100.0 PG/ML Total Protein 6.9 6.4-8.2 GM/DL Albumin 3.7 3.2-4.5 GM/DL Lipase 16 8-78 U/L My Orders Orders - COPE,VIRGIL Katia PA Ekg Tracing (01/10/23 11:19) Cbc With Automated Diff (01/10/23 11:22) Magnesium (01/10/23 11:22) Chest 1 View, Ap/Pa Only (01/10/23 11:22) Comprehensive Metabolic Panel (01/10/23 11:22) Myoglobin Serum (01/10/23 11:22) Protime With Inr (01/10/23 11:22) Partial Thromboplastin Time (01/10/23 11:22) O2 (01/10/23 11:22) Monitor-Rhythm Ecg Trace Only (01/10/23 11:22) Ed Iv/Invasive Line Start (01/10/23 11:22) Lipase (01/10/23 11:22) Bnp Jonh (01/10/23 11:22) Troponin I Jonh (01/10/23 11:22) Aspirin Chewable Tablet (Baby Aspirin Ch (01/10/23 11:30) Ondansetron Injection (Zofran Injectio (01/10/23 11:45) Ondansetron Injection (Zofran Injectio (01/10/23 11:45) Troponin I [place] (01/10/23 13:30) Fibrin Degradation Products (01/10/23 12:38) Ct Angio Chest W (R/O Pe) (01/10/23 13:07) Iohexol Injection (Omnipaque 350 Mg/Ml 1 (01/10/23 13:15) Received Contrast (Hold Metformin- Contr (01/10/23 13:15) Ns (Ivpb) (Sodium Chloride 0.9% Ivpb Bag (01/10/23 13:15) Morphine Injection (Morphine Injection (01/10/23 13:30) Furosemide Injection (Lasix Injection) (01/10/23 13:30) Ekg Tracing (01/10/23 13:29) Ed Admission (Communication) (01/10/23 15:18) Medications Given in ED Vital Signs/I&O 01/10/23 01/10/23 01/10/23 11:15 13:00 14:23 Temp 36.0 36.0 Pulse 107 Resp 18 B/P (MAP) 143/102 (116) Pulse Ox 96 90 O2 Delivery Nasal Cannula O2 Flow Rate 2.00 Blood Pressure Mean: 116 Comment Ventricular pacemaker, 106 bpm, QRS duration 127 MS, QTc 428 MS. Departure Communication (PCP) Reviewed previous ER visits, H&P, lab testing. Patient is a 57-year-old male with a history of COPD, CHF, ACS who presents to the ED shortness of breath and weakness for the past month and a half with associated chest pain. Chest pain started 2 days ago substernal described as pressure. Rates pain 8 out of 10. Denies history of coronary stents. Patient has been seen here over the past few months for this shortness of breath. Currently follows cardiology Dr. MCKENZIE in [place]. Was seen a few days ago. Patient was given a full aspirin and morphine with some improvement. Patient oxygen initially on arrival was in the lower 90s to upper 80s. He states he does not wear oxygen at home. Was placed on 2 L. Bilateral pitting edema. Chest x-ray concerning for pulmonary edema cardiomegaly very similar. However patient was tachycardic just below 100 which appears new. Did interrogate his pacemaker and defibrillator which did not show any abnormal rhythms. Patient received 40 mg of IV Lasix. CT angio of the chest was ordered secondary to elevated D-dimer at 4. No evidence of PE but did show pulmonary edema with pleural effusion. Initial troponin was negative. BNP was 1700 which has slightly improved from his last visit earlier in December. Patient does not appear well. CBC, CMP grossly unremarkable. Blood sugar 199. Due to the hypoxia requiring oxygen with CHF patient will be admitted. Patient was consulted with Dr. Morris who is currently in a procedure. Patient will was discussed with Dr. Cedeno who accept patient. Dr. morris will consult Impression Primary Impression: Acute on chronic heart failure Disposition: ADMITTED INPATIENT Condition: Stable Admissions Decision to Admit Reason: Admit from ER (General) Decision to Admit/Date: Jan 10, 2023 Time/Decision to Admit Time: 14:52 Departure-Patient Inst. Referrals: EUSEBIO TAVARES APRN (PCP/Family) Primary Care Physician VIRGIL COPE Jan 10, 2023 11:28
[2023-01-10] MEDS ORDERED: ASPIRIN 81 MG CHEW (CHILDREN'S ASA) PO ONE (11:30)
[2023-01-10 11:37] LABS: BASOPHILS # (AUTO) 0.1 10^3/uL (0.0-0.1); BASOPHILS % (AUTO) 1 % (0-10)
[2023-01-10 11:39] LABS: EOSINOPHILS % (AUTO) 1 % (0-10); HEMATOCRIT 39 % (40-54); HEMOGLOBIN 13.1 g/dL (13.3-17.7); LYMPHOCYTES # (AUTO) 1.6 10^3/uL (1.0-4.0); LYMPHOCYTES % (AUTO) 19 % (12-44); MEAN CORPUSCULAR HEMOGLOBIN 27 pg (25-34); MEAN CORPUSCULAR HGB CONC 34 g/dL (32-36); MEAN CORPUSCULAR VOLUME 80 fL (80-99); MEAN PLATELET VOLUME 13.5 fL (9.0-12.2); MONOCYTES # (AUTO) 0.5 10^3/uL (0.0-1.0); MONOCYTES % (AUTO) 6 % (0-12); NEUTROPHILS # (AUTO) 6.4 10^3/uL (1.8-7.8); NEUTROPHILS % (AUTO) 75 % (42-75); PLATELET COUNT 104 10^3/uL (130-400); WHITE BLOOD COUNT 8.6 10^3/uL (4.3-11.0)
[2023-01-10 11:45] LABS: ALBUMIN 3.7 GM/DL (3.2-4.5)
[2023-01-10] MEDS ORDERED: ONDANSETRON 4 MG/2 ML (SDV) Z0FRAN IVP ONE (11:45)
[2023-01-10] MEDS ORDERED: ONDANSETRON 4 MG/2 ML (SDV) Z0FRAN ONE (11:45)
--- NOTE | 2023-01-10 11:45 | Diagnostic Imaging Report ---
INDICATION: Shortness of breath, weakness. COMPARISON: 12/24/2022. FINDINGS: The pacemaker device is stable. The cardiomegaly is similar to the prior exam. There is some prominence of the pulmonary vascularity as well as some new peripheral interstitial opacities, likely mild interstitial edema. No effusion. No pneumothorax. IMPRESSION: Similar cardiomegaly and venous congestion with likely mild pulmonary interstitial edema. No consolidating pneumonia, pleural fluid, or pneumothorax, however. Dictated by: Dictated on workstation # [id number]
[2023-01-10 11:46] LABS: CHLORIDE 107 MMOL/L (98-107); POTASSIUM 4.3 MMOL/L (3.6-5.0); SODIUM 136 MMOL/L (135-145)
[2023-01-10 11:47] LABS: CALCIUM 9.1 MG/DL (8.5-10.1)
[2023-01-10 11:48] LABS: GLUCOSE 199 MG/DL (70-105); TOTAL PROTEIN 6.9 GM/DL (6.4-8.2)
[2023-01-10 11:49] LABS: CARBON DIOXIDE 19 MMOL/L (21-32)
[2023-01-10 11:50] LABS: BILIRUBIN,TOTAL 2.3 MG/DL (0.1-1.0)
[2023-01-10 11:51] LABS: ALKALINE PHOSPHATASE 91 U/L (40-136); INR 1.1 (0.8-1.4); PROTHROMBIN TIME PATIENT 14.5 SEC (12.2-14.7)
[2023-01-10 11:52] LABS: CREATININE SERUM 1.24 MG/DL (0.60-1.30); GFR ESTIMATED 67
[2023-01-10 11:53] LABS: BUN/CREATININE RATIO 16
[2023-01-10 11:55] LABS: ALANINE AMINOTRANSFERASE 25 U/L (0-55)
[2023-01-10 11:56] LABS: LIPASE 16 U/L (8-78)
[2023-01-10] MEDS ORDERED: HOLD METFORMIN - RECEIVED CONTRAST 20 ML VIAL IV SCH (13:15)
[2023-01-10] MEDS ORDERED: NS 100 ML (IVPB) BAG IV ONE (13:15)
[2023-01-10] MEDS ORDERED: IOHEXOL 350 MG/ML 100 ML (OMNIPAQUE 350) VIAL IV ONE (13:15)
[2023-01-10] MEDS ORDERED: morphine INJ 10 MG/ML 1ML (SYR OR VIAL) IVP ONE (13:30)
[2023-01-10] MEDS ORDERED: FUROSEMIDE 40 MG/4 ML INJ (LASIX) IVP ONE (13:30)
--- NOTE | 2023-01-10 14:45 | Diagnostic Imaging Report ---
EXAMINATION: CT angiography of the chest. TECHNIQUE: Contrast enhanced thin section helical images were obtained through the chest with intravenous contrast timed for the optimal opacification of the arterial structures per CTA protocol. Post-processing, reconstructions and interpretation of angiographic images of the vessels was performed. 3D MIP reconstructions were performed and reviewed. All CT scans use one or more of the following dose optimizing techniques: Automated exposure control, MA and/or KvP adjustment based on a patient size and exam type, or iterative reconstruction. HISTORY: Chest pain and shortness of breath. COMPARISON: None available. FINDINGS: There is no pulmonary embolism. There is lqso-ok-gbfwvowd edema. No pneumonia. There are small pleural effusions. No pneumothorax. No suspicious nodules. There is no axillary or supraclavicular lymphadenopathy. Mildly enlarged mediastinal lymph nodes are likely reactive to the pulmonary edema. The largest measures 1.9 cm. Left ventricle is dilated. A pacemaker is present. There are mild coronary artery calcifications. No pericardial effusion. Aorta is normal in caliber. Limited views of the upper abdomen are unremarkable. There are no suspicious osseous lesions. IMPRESSION: 1. No pulmonary embolism. 2. [id number] pulmonary edema with small pleural effusions. Dictated by: Dictated on workstation # [id number]
[2023-01-10] MEDS ORDERED: ENOXAPARIN 40 MG/0.4 ML (LOVENOX) SYR SC SCH (17:00)
[2023-01-10] MEDS: FUROSEMIDE 40 MG/4 ML INJ (LASIX) IV SCH (17:23)
--- NOTE | 2023-01-10 19:16 | Consultation-Cardiology ---
HPI-Cardiology Cardiology Consultation: Date of Consultation 01/10/23 Time Seen by a Provider: 18:15 Date of Admission Attending Physician Margoth Hamilton Aprn Admitting Physician Admitting Physician: Meron Cedeno MD Attending Physician: Meron Cedeno MD Consulting Physician LORENA AGUILAR MD, MA, FACP, FACC, FSCAI, CCDS Physician requesting consult: Dr Cedeno Primary burner technician: Dr Jeffery HPI: Chief Complaint: Reason for Card consult: Shortness of breath 57 yo man with a h/o HFrEF admitted with increasing shortness of breath and mild to mod low ext swelling over the last several days. Diagnosed with decomp CHF and treated with iv diuretics and supple oxygen. He currently feels better (after being treated). Denies cp or palp or syncope. Review of Systems-Cardiology Review of Systems Constitutional: malaise, tiredness; No weight loss, No weight gain Eyes: No vision change Ears/Nose/Throat: No ear discharge, No nasal drainage, No recent hearing loss Respiratory: As described under HPI Cardiovascular: As described under HPI Gastrointestinal: No diarrhea, No nausea, No vomiting Genitourinary: No dysuria, No hematuria, No urine frequency changes Musculoskeletal: No back pain, No joint pain Skin: No rash, No ulcerations Psychiatric/Neurological: No seizure, No focal weakness, No syncope Hematologic: No bleeding abnormalities All Other Systems Reviewed Negative Unless Noted: Yes TFG-Sioyxp-Thozxo Hx Patient Social History Smoking Status: Former Smoker Former smoker/When Quit: Jul 09, 1993 Alcohol Use?: No Substance type: Marijuana Pt feels they are or have been: No Past Medical History PMH As described under Assessment. Family Medical History Family Medical History: Family h/o father having CAD, CABG and PPM. Allergies and Home Medications Allergies Coded Allergies: Penicillins (Unverified Allergy, Unknown, 03/02/12) diphenhydramine HCl (Verified Allergy, Unknown, 09/28/13) latex (Unverified Adverse Reaction, Mild, rash, 09/28/13) Patient Home Medication List Home Medication List Reviewed: Yes Aspirin (Aspirin EC) 81 Mg Tablet.dr 81 MG PO DAILY Prescribed by: CINDY ANDERSON on 11/13/22 1045 Atorvastatin Calcium (Atorvastatin Calcium) 40 Mg Tablet, 40 MG PO DAILY, (Reported) Entered as Reported by: DESHAUN VILLAREAL on 10/28/22 0947 Furosemide (Furosemide) 40 Mg Tablet, 40 MG PO BID Prescribed by: CANDIE NUÑEZ on 10/28/22 1146 Gabapentin (Gabapentin) 800 Mg Tablet, 800 MG PO, (Reported) Entered as Reported by: FREDDY ROSALES on 08/04/15 0526 Metoprolol Succinate (Metoprolol Succinate) 100 Mg Tab.er.24h, 100 MG PO DAILY, (Reported) Entered as Reported by: DESHAUN VILLAREAL on 10/28/22 09 Potassium Chloride (Potassium Chloride) 20 Meq Tab.er.prt, 20 MEQ PO DAILY, (Reported) Entered as Reported by: DESHAUN VILLAREAL on 10/28/22 09 Sacubitril/Valsartan (Entresto 24 mg-26 mg Tablet) 24 Mg-26 Mg Tablet, 1 TAB PO BID Prescribed by: CINDY ANDERSON on 11/13/22 1045 Spironolactone (Spironolactone) 25 Mg Tablet, 25 MG PO DAILY, (Reported) Entered as Reported by: DESHAUN VILLAREAL on 10/28/22 0947 Physical Exam-Cardiology Physical Exam Vital Signs/I&O 01/10/23 01/10/23 01/10/23 01/10/23 11:15 13:00 14:23 16:00 Temp 36.0 36.0 36.0 Pulse 107 95 Resp 18 18 B/P (MAP) 143/102 (116) 104/89 Pulse Ox 96 90 97 O2 Delivery Nasal Cannula Nasal Cannula O2 Flow Rate 2.00 2.00 2.00 01/10/23 01/10/23 01/10/23 01/10/23 16:00 16:11 16:15 16:30 Pulse 90 87 98 96 Resp 9 14 14 B/P (MAP) 109/92 (98) 128/115 (119) 117/95 (102) Pulse Ox 99 100 100 O2 Delivery Nasal Cannula Nasal Cannula Nasal Cannula O2 Flow Rate 2.00 2.00 2.00 01/10/23 01/10/23 01/10/23 01/10/23 16:40 16:43 16:45 17:00 Temp 36.0 Pulse 95 82 89 Resp 29 24 B/P (MAP) 119/97 (104) 120/94 (103) Pulse Ox 97 100 100 100 O2 Delivery Nasal Cannula Nasal Cannula Nasal Cannula O2 Flow Rate 2.00 2.00 2.00 01/10/23 01/10/23 01/10/23 17:15 17:30 18:00 Pulse 92 101 104 Resp 19 13 36 B/P (MAP) 120/93 (102) 109/96 (100) 122/102 (109) Pulse Ox 100 100 100 O2 Delivery Nasal Cannula Nasal Cannula Nasal Cannula O2 Flow Rate 2.00 2.00 2.00 Capillary Refill : Less Than 3 Seconds Constitutional: AAO x 3, well-developed, well-nourished HEENT: EOMI, hearing is well preserved; No xanthelasmas are seen Neck: carotid pulses are 2 + bilaterally, with good upstrokes Respiratory: No accessory muscle use; chest expansion is symmetric, chest is bilaterally symmetric, other (fair, bilat air entry; bs diminished at the bases) Cardiovascular: regular rate-rhythm, S1 and S2, systolic murmur (soft BETZY at card base) Gastrointestinal: No tender; soft; No guarding, No rebound; audible bowel sounds Extremities: swelling (mild to mod leg edema, bilat); No clubbing, No cyanosis Neurologic/Psychiatric: oriented x 3, other (moves all limbs equally) Skin: No rash on exposed areas, No ulcerations on exposed areas Data Review Labs Laboratory Tests 01/10/23 11:24: White Blood Count 8.6, Red Blood Count 4.88, Hemoglobin 13.1L, Hematocrit 39L, Mean Corpuscular Volume 80, Mean Corpuscular Hemoglobin 27, Mean Corpuscular Hemoglobin Concent 34, Red Cell Distribution Width 16.3H, Platelet Count 104L, Mean Platelet Volume 13.5H, Immature Granulocyte % (Auto) 0, Neutrophils (%) (Auto) 75, Lymphocytes (%) (Auto) 19, Monocytes (%) (Auto) 6, Eosinophils (%) (Auto) 1, Basophils (%) (Auto) 1, Neutrophils # (Auto) 6.4, Lymphocytes # (Auto) 1.6, Monocytes # (Auto) 0.5, Eosinophils # (Auto) 0.0, Basophils # (Auto) 0.1, Immature Granulocyte # (Auto) 0.0, Percent Immature Platelet Fraction 12.9H, Prothrombin Time 14.5, INR Comment 1.1, Activated Partial Thromboplast Time 25, D-Dimer 4.19H, Sodium Level 136, Potassium Level 4.3, Chloride Level 107, Carbon Dioxide Level 19L, Anion Gap 10, Blood Urea Nitrogen 20H, Creatinine 1.24, Estimat Glomerular Filtration Rate 67, BUN/Creatinine Ratio 16, Glucose Level 199H, Calcium Level 9.1, Corrected Calcium 9.3, Magnesium Level 2.0, Total Bilirubin 2.3H, Aspartate Amino Transf (AST/SGOT) 27, Alanine Aminotransferase (ALT/SGPT) 25, Alkaline Phosphatase 91, Myoglobin 59.2, Troponin I < 0.028, B- Type Natriuretic Peptide 1718.4H, Total Protein 6.9, Albumin 3.7, Lipase 16 01/10/23 13:45: Troponin I 0.042H Laboratory Tests 01/10/23 11:24 A/P-Cardiology Assessment/Admission Diagnosis HFrEF - Echo 10/29: LVEF 20-25%, mod enlargement of the right heart, mild to mod MR, PASP 45-50 mmHg - Reports a h/o card cath by Dr Jeffery in [place], [place] and states it did not significant CAD - Status post ICD placement. Implanted in Aug [address] Hardy in [place], [place], and followed by him (per pt report) Hypertension - currently controlled Chronic, mild troponin elevation, unchanged (0.04-0.08 range) - likely due to chronic systolic CHF (type 2 NC) - no evidence of type 1 NC COPD - managed by Hospitalist gaby CARTER H/O ETOH abuse - quit in Aug 2021 following device implant H/O tobaccoism - quit 20 yrs ago Chronic back/hip pain H/O daily marijuana use - cessation advised Discussion and Recomendations * Change diuretics to iv * Continue GDMT * Monitor labs * Advised to quit marijuana use LORENA AGUILAR MD FACP FAC CCDS Jan 10, 2023 19:16
[2023-01-10] MEDS: RT-ALBUTEROL/IPRATROPIUM 3 ML (DUONEB) VIAL INH SCH (21:56)
[2023-01-11] VITALS (7 sets, daily range): BP systolic 112–136; BP diastolic 84–112
[2023-01-11 04:49] LABS: HEMOGLOBIN 13.2 g/dL (13.3-17.7)
[2023-01-11 04:51] LABS: BASOPHILS # (AUTO) 0.1 10^3/uL (0.0-0.1); BASOPHILS % (AUTO) 1 % (0-10); EOSINOPHILS # (AUTO) 0.1 10^3/uL (0.0-0.3); EOSINOPHILS % (AUTO) 1 % (0-10); HEMATOCRIT 40 % (40-54); LYMPHOCYTES % (AUTO) 25 % (12-44); MEAN CORPUSCULAR HEMOGLOBIN 26 pg (25-34); MEAN CORPUSCULAR HGB CONC 33 g/dL (32-36); MEAN CORPUSCULAR VOLUME 79 fL (80-99); MEAN PLATELET VOLUME 12.7 fL (9.0-12.2); MONOCYTES # (AUTO) 0.6 10^3/uL (0.0-1.0); MONOCYTES % (AUTO) 8 % (0-12); NEUTROPHILS # (AUTO) 5.1 10^3/uL (1.8-7.8); NEUTROPHILS % (AUTO) 65 % (42-75); PLATELET COUNT 142 10^3/uL (130-400); WHITE BLOOD COUNT 7.8 10^3/uL (4.3-11.0)
[2023-01-11 05:15] LABS: ALBUMIN 3.5 GM/DL (3.2-4.5)
[2023-01-11 05:16] LABS: CALCIUM 8.9 MG/DL (8.5-10.1)
[2023-01-11 05:17] LABS: TOTAL PROTEIN 6.5 GM/DL (6.4-8.2)
[2023-01-11 05:19] LABS: BILIRUBIN,TOTAL 2.1 MG/DL (0.1-1.0)
[2023-01-11 05:21] LABS: CREATININE SERUM 1.44 MG/DL (0.60-1.30)
[2023-01-11] MEDS: FUROSEMIDE 40 MG/4 ML INJ (LASIX) IV SCH (08:15)
[2023-01-11] MEDS ORDERED: ACETAMINOPHEN 500 MG TAB (TYLENOL) PO PRN (09:00)
--- NOTE | 2023-01-11 10:02 | Progress Note - Cardiology ---
Cardiology SOAP Progress Note Subjective: Feels better today Improvement of shortness of breath and leg swelling No n/v/d No focal weakness No palp or syncope No cp No wrist or arm discomfort Objective: I&O/Vital Signs 01/10/23 01/11/23 01/11/23 01/11/23 22:00 00:00 01:00 02:38 Pulse 90 89 87 Resp 24 26 B/P (MAP) 118/96 (103) 112/84 (93) Pulse Ox 99 99 O2 Delivery Nasal Cannula Nasal Cannula Nasal Cannula O2 Flow Rate 2.00 2.00 3.00 01/11/23 01/11/23 01/11/23 01/11/23 04:00 07:00 07:00 07:53 Temp 35.9 Pulse 93 96 85 97 Resp 18 21 29 B/P (MAP) 112/86 (95) 113/96 (102) 113/96 (102) Pulse Ox 95 93 98 O2 Delivery Nasal Cannula Nasal Cannula Nasal Cannula O2 Flow Rate 3.00 3.00 3.00 01/11/23 01/11/23 01/11/23 01/11/23 08:00 08:00 08:26 09:00 Pulse 96 92 Resp 13 B/P (MAP) 136/112 (120) 118/101 (107) Pulse Ox 99 95 82 O2 Delivery Room Air Nasal Cannula Room Air Room Air O2 Flow Rate 3.00 01/11/23 00:00 Intake Total 400 ml Output Total 1600 ml Balance -1200 ml Weight (Pounds): 200 Weight (Ounces): 6.4 Weight (Calculated Kilograms): 90.825853 Constitutional: AAO x 3, well-developed, well-nourished Respiratory: No accessory muscle use; chest expansion is symmetric, chest is bilaterally symmetric, other (fair, bilat air entry; bs diminished at the bases) Cardiovascular: regular rate-rhythm, S1 and S2, systolic murmur (soft BETZY at card base) Gastrointestional: No tender; soft; No guarding, No rebound; audible bowel sounds Extremities: No swelling, No clubbing, No cyanosis Neurologic/Psychiatric: oriented x 3, other (moves all limbs equally) Skin: No rash on exposed areas, No ulcerations on exposed areas Results/Procedures: Labs Laboratory Tests 01/10/23 11:24: White Blood Count 8.6, Red Blood Count 4.88, Hemoglobin 13.1L, Hematocrit 39L, Mean Corpuscular Volume 80, Mean Corpuscular Hemoglobin 27, Mean Corpuscular Hemoglobin Concent 34, Red Cell Distribution Width 16.3H, Platelet Count 104L, Mean Platelet Volume 13.5H, Immature Granulocyte % (Auto) 0, Neutrophils (%) (Auto) 75, Lymphocytes (%) (Auto) 19, Monocytes (%) (Auto) 6, Eosinophils (%) (Auto) 1, Basophils (%) (Auto) 1, Neutrophils # (Auto) 6.4, Lymphocytes # (Auto) 1.6, Monocytes # (Auto) 0.5, Eosinophils # (Auto) 0.0, Basophils # (Auto) 0.1, Immature Granulocyte # (Auto) 0.0, Percent Immature Platelet Fraction 12.9H, Prothrombin Time 14.5, INR Comment 1.1, Activated Partial Thromboplast Time 25, D-Dimer 4.19H, Sodium Level 136, Potassium Level 4.3, Chloride Level 107, Carbon Dioxide Level 19L, Anion Gap 10, Blood Urea Nitrogen 20H, Creatinine 1.24, Estimat Glomerular Filtration Rate 67, BUN/Creatinine Ratio 16, Glucose Level 199H, Calcium Level 9.1, Corrected Calcium 9.3, Magnesium Level 2.0, Total Bilirubin 2.3H, Aspartate Amino Transf (AST/SGOT) 27, Alanine Aminotransferase (ALT/SGPT) 25, Alkaline Phosphatase 91, Myoglobin 59.2, Troponin I < 0.028, B- Type Natriuretic Peptide 1718.4H, Total Protein 6.9, Albumin 3.7, Lipase 16 01/10/23 13:45: Troponin I 0.042H 01/11/23 03:30: White Blood Count 7.8, Red Blood Count 5.00, Hemoglobin 13.2L, Hematocrit 40, Mean Corpuscular Volume 79L, Mean Corpuscular Hemoglobin 26, Mean Corpuscular Hemoglobin Concent 33, Red Cell Distribution Width 16.3H, Platelet Count 142, Mean Platelet Volume 12.7H, Immature Granulocyte % (Auto) 0, Neutrophils (%) (Auto) 65, Lymphocytes (%) (Auto) 25, Monocytes (%) (Auto) 8, Eosinophils (%) (Auto) 1, Basophils (%) (Auto) 1, Neutrophils # (Auto) 5.1, Lymphocytes # (Auto) 2.0, Monocytes # (Auto) 0.6, Eosinophils # (Auto) 0.1, Basophils # (Auto) 0.1, Immature Granulocyte # (Auto) 0.0, Percent Immature Platelet Fraction 9.6H, Sodium Level 136, Potassium Level 4.0, Chloride Level 104, Carbon Dioxide Level 22, Anion Gap 10, Blood Urea Nitrogen 21H, Creatinine 1.44H, Estimat Glomerular Filtration Rate 56, BUN/Creatinine Ratio 15, Glucose Level 120H, Calcium Level 8.9, Corrected Calcium 9.3, Total Bilirubin 2.1H, Aspartate Amino Transf (AST/SGOT) 18, Alanine Aminotransferase (ALT/SGPT) 22, Alkaline Phosphatase 92, Total Protein 6.5, Albumin 3.5 Laboratory Tests 01/10/23 11:24 01/11/23 03:30 A/P: Assessment: HFrEF - Echo 10/29: LVEF 20-25%, mod enlargement of the right heart, mild to mod MR, PASP 45-50 mmHg - Reports a h/o card cath by Dr Jeffery in [place], [place] and states it did not significant CAD - Status post ICD placement. Implanted in Aug [address] Hardy in [place], [place], and followed by him (per pt report) Hypertension - currently controlled Chronic, mild troponin elevation, unchanged (0.04-0.08 range) - likely due to chronic systolic CHF (type 2 [place]) - no evidence of type 1 [place] COPD - managed by Hospitalist gaby CARTER H/O ETOH abuse - quit in Aug 2021 following device implant H/O tobaccoism - quit 20 yrs ago Chronic back/hip pain H/O daily marijuana use - cessation advised Plan: * Change diuretics to oral * Continue GDMT that he has been at home and that is being managed by his electronic pagination system operator Dr Jeffery at [facility] * Monitor labs while in the hospital * Advised to quit marijuana use LORENA AGUILAR MD FACP [facility]S Jan 11, 2023 10:02
[2023-01-11] MEDS: RT-ALBUTEROL/IPRATROPIUM 3 ML (DUONEB) VIAL INH SCH ×2 (10:32→15:19)
[2023-01-11] MEDS ORDERED: ASPI-1238 PO ×2 (11:10)
[2023-01-11] MEDS ORDERED: LISI20TA26 PO ×2 (11:10)
[2023-01-11] MEDS ORDERED: FURO40TA4 PO ×2 (11:10)
[2023-01-11] MEDS ORDERED: GABAPENTIN 400 MG (NEURONTIN) CAP PO SCH (13:00)
--- NOTE | 2023-01-11 13:05 | Short Stay Summary ---
HPI History of Present Illness: 57 yo M that presented to ER with increasing shortness of breath over the last few days. Patient states that he does not wear oxygen at home but had been talking about it with his heart doctor but they had not got the qualification done. Denies any chest pain with his shortness of breath. Has known CHF with reduced EF. Follows with heart doctor in [place]. States that this AM he is feeling much better and has been having good output of urine. Source: patient Exam Limitations: no limitations Date seen by provider: Jan 11, 2023 Time Seen by Provider: 08:05 Attending Physician Margoth Hamilton Aprn PCP Admitting Physician: Maryjo Cedeno MD Attending Physician: Maryjo Cedeno MD Consult Date of Admission Jan 10, 2023 at 15:57 Home Medications Home Medications Reviewed patient Home Medication Reconciliation performed by pharmacy medication reconciliations alternative energy technician and/or nursing. Patients Allergies have been reviewed. Allergies Coded Allergies: Penicillins (Unverified Allergy, Unknown, 03/02/12) diphenhydramine HCl (Verified Allergy, Unknown, 09/28/13) latex (Unverified Adverse Reaction, Mild, rash, 09/28/13) [id number] Hx Patient Social History Smoking Status: Former Smoker Former smoker/When Quit: Jul 09, 1993 Recent Hopitalizations: Yes Alcohol Use?: No Substance type: Marijuana Immunizations Up To Date Influenza Vaccine Up-to-Date: Yes; Up-to-Date First/Initial COVID19 Vaccinat: NO Second COVID19 Vaccination Eric: NO Third COVID19 Vaccination Date: NO Past Medical History Sysolic CHF with defibrillator in place HTN HLD Dilated cardiomyopathy h/o EtOHism h/o tobacco use Family Medical History Significant Family History: No Pertinent Family Hx Review of Systems (CHC) Constitutional: No chills, No fever; malaise EENTM: no symptoms reported; No mouth pain, No nose congestion, No nose pain Respiratory: No cough; dyspnea on exertion, short of breath Cardiovascular: No chest pain; edema; No palpitations Gastrointestinal: no symptoms reported; No abdominal pain, No constipation, No diarrhea, No nausea, No vomiting Genitourinary: No dysuria; frequency Musculoskeletal: back pain, joint pain Skin: no symptoms reported Psychiatric/Neurological: No Symptoms Reported Reviewed Test Results Reviewed Test Results Lab Laboratory Tests Test 01/10/23 13:45 01/11/23 03:30 Range/Units Troponin I 0.042 H <0.028 NG/ML White Blood Count 7.8 4.3-11.0 10^3/uL Red Blood Count 5.00 4.30-5.52 10^6/uL Hemoglobin 13.2 L 13.3-17.7 g/dL Hematocrit 40 40-54 % Mean Corpuscular Volume 79 L 80-99 fL Mean Corpuscular Hemoglobin 26 25-34 pg Mean Corpuscular Hemoglobin Concent 33 32-36 g/dL Red Cell Distribution Width 16.3 H 10.0-14.5 % Platelet Count 142 130-400 10^3/uL Mean Platelet Volume 12.7 H 9.0-12.2 fL Immature Granulocyte % (Auto) 0 % Neutrophils (%) (Auto) 65 42-75 % Lymphocytes (%) (Auto) 25 12-44 % Monocytes (%) (Auto) 8 0-12 % Eosinophils (%) (Auto) 1 0-10 % Basophils (%) (Auto) 1 0-10 % Neutrophils # (Auto) 5.1 1.8-7.8 10^3/uL Lymphocytes # (Auto) 2.0 1.0-4.0 10^3/uL Monocytes # (Auto) 0.6 0.0-1.0 10^3/uL Eosinophils # (Auto) 0.1 0.0-0.3 10^3/uL Basophils # (Auto) 0.1 0.0-0.1 10^3/uL Immature Granulocyte # (Auto) 0.0 0.0-0.1 10^3/uL Percent Immature Platelet Fraction 9.6 H 0.0-7.6 % Sodium Level 136 135-145 MMOL/L Potassium Level 4.0 3.6-5.0 MMOL/L Chloride Level 104 98-107 MMOL/L Carbon Dioxide Level 22 21-32 MMOL/L Anion Gap 10 5-14 MMOL/L Blood Urea Nitrogen 21 H 7-18 MG/DL Creatinine 1.44 H 0.60-1.30 MG/DL Estimat Glomerular Filtration Rate 56 BUN/Creatinine Ratio 15 Glucose Level 120 H 70-105 MG/DL Calcium Level 8.9 8.5-10.1 MG/DL Corrected Calcium 9.3 8.5-10.1 MG/DL Total Bilirubin 2.1 H 0.1-1.0 MG/DL Aspartate Amino Transf (AST/SGOT) 18 5-34 U/L Alanine Aminotransferase (ALT/SGPT) 22 0-55 U/L Alkaline Phosphatase 92 40-136 U/L Total Protein 6.5 6.4-8.2 GM/DL Albumin 3.5 3.2-4.5 GM/DL Physical Exam-(CHC) Physical Exam Vital Signs VS - Last 72 Hours, by Label 01/10/23 01/10/23 01/10/23 01/10/23 11:15 13:00 14:23 16:00 Temp 36.0 36.0 36.0 Pulse 107 95 Resp 18 18 B/P (MAP) 143/102 (116) 104/89 Pulse Ox 96 90 97 O2 Delivery Nasal Cannula Nasal Cannula O2 Flow Rate 2.00 2.00 2.00 01/10/23 01/10/23 01/10/23 01/10/23 16:00 16:11 16:15 16:30 Pulse 90 87 98 96 Resp 9 14 14 B/P (MAP) 109/92 (98) 128/115 (119) 117/95 (102) Pulse Ox 99 100 100 O2 Delivery Nasal Cannula Nasal Cannula Nasal Cannula O2 Flow Rate 2.00 2.00 2.00 01/10/23 01/10/23 01/10/23 01/10/23 16:40 16:43 16:45 17:00 Temp 36.0 Pulse 95 82 89 Resp 29 24 B/P (MAP) 119/97 (104) 120/94 (103) Pulse Ox 97 100 100 100 O2 Delivery Nasal Cannula Nasal Cannula Nasal Cannula O2 Flow Rate 2.00 2.00 2.00 01/10/23 01/10/23 01/10/23 01/10/23 17:15 17:30 18:00 19:00 Pulse 92 101 104 86 Resp 19 13 36 B/P (MAP) 120/93 (102) 109/96 (100) 122/102 (109) Pulse Ox 100 100 100 O2 Delivery Nasal Cannula Nasal Cannula Nasal Cannula O2 Flow Rate 2.00 2.00 2.00 01/10/23 01/10/23 01/10/23 01/10/23 19:00 20:00 20:00 20:13 Temp 35.8 Pulse 87 93 Resp 16 16 B/P (MAP) 98/76 (83) 105/82 (90) Pulse Ox 100 100 98 O2 Delivery Nasal Cannula Nasal Cannula Nasal Cannula Nasal Cannula O2 Flow Rate 2.00 2.00 2.00 2.00 01/10/23 01/10/23 01/10/23 01/11/23 21:00 21:57 22:00 00:00 Pulse 91 90 89 Resp 25 24 26 B/P (MAP) 108/81 (90) 118/96 (103) 112/84 (93) Pulse Ox 99 94 99 99 O2 Delivery Nasal Cannula Nasal Cannula Nasal Cannula Nasal Cannula O2 Flow Rate 2.00 2.00 2.00 2.00 01/11/23 01/11/23 01/11/23 01/11/23 01:00 02:38 04:00 07:00 Pulse 87 93 96 Resp 18 B/P (MAP) 112/86 (95) Pulse Ox 95 O2 Delivery Nasal Cannula Nasal Cannula O2 Flow Rate 3.00 3.00 01/11/23 01/11/23 01/11/23 01/11/23 07:00 07:53 08:00 08:00 Temp 35.9 Pulse 85 97 96 Resp 21 29 13 B/P (MAP) 113/96 (102) 113/96 (102) 136/112 (120) Pulse Ox 93 98 99 95 O2 Delivery Nasal Cannula Nasal Cannula Room Air Nasal Cannula O2 Flow Rate 3.00 3.00 3.00 01/11/23 01/11/23 01/11/23 08:26 09:00 11:59 Temp 36.2 Pulse 92 95 Resp 24 B/P (MAP) 118/101 (107) 113/92 (99) Pulse Ox 82 98 O2 Delivery Room Air Room Air Nasal Cannula O2 Flow Rate 3.00 Capillary Refill : Less Than 3 Seconds General Appearance: WD/WN, no apparent distress HEENT: PERRL/EOMI Neck: non-tender, full range of motion Respiratory: chest non-tender, no accessory muscle use, wheezing Cardiovascular: normal peripheral pulses, regular rate, rhythm, no murmur Gastrointestinal: normal bowel sounds, non tender, soft Back: no CVA tenderness, no vertebral tenderness Extremities: normal range of motion, non-tender, no calf tenderness, normal capillary refill, pedal edema (1+ pitting edema bilaterally) Neurologic/Psychiatric: coating machine helper II-XII nml as tested, alert, oriented x 3 Skin: normal color, warm/dry Lymphatic: no adenopathy Short Stay Diagnosis Discharge Diagnosis-Short Stay Admission Diagnosis See problem list Final Discharge Diagnosis See problem list Conclusion Plan See problem list Assessment/Plan Assessment/Plan Admission Status: Observation (1) Acute and chronic respiratory failure with hypoxia Status: Acute Assessment & Plan: - Titrate oxygen as tolerated, did home oxygen study and patient qualified (2) Acute on chronic systolic (congestive) heart failure Status: Acute Assessment & Plan: - Consult Dr Morris with cardiology, appreciate recommendations, will transition patient back to PO lasix prior to d/c (3) Pulmonary edema Status: Acute Qualifiers: Qualified Codes: J81.0 - Acute pulmonary edema (4) COPD (chronic obstructive pulmonary disease) Status: Chronic Qualifiers: Qualified Codes: J44.9 - Chronic obstructive pulmonary disease, unspecified (5) Elevated troponin Status: Acute Assessment & Plan: - Chronic (6) Hypertension Status: Chronic Assessment & Plan: - Will continue home meds MARYJO CEDENO MD Jan 11, 2023 13:05
--- NOTE | 2023-01-11 13:08 | Discharge Summary ---
Discharge [facility] Discharge Medications New, Converted or Re-Newed RX: Transmitted to Pharmacy Continued Medications: Aspirin (Aspirin EC) 81 Mg Tablet.dr 81 MG PO DAILY, TAB Atorvastatin Calcium (Atorvastatin Calcium) 40 Mg Tablet 40 MG PO HS, TAB Furosemide (Furosemide) 40 Mg Tablet 40 MG PO BID, TAB Gabapentin (Gabapentin) 800 Mg Tablet 800 MG PO TID, TAB Lisinopril (Lisinopril) 20 Mg Tablet 20 MG PO DAILY, TAB LAST FILLED 06-30-2022 #30/30 DAY SUPPLY Metoprolol Succinate (Metoprolol Succinate) 100 Mg Tab.er.24h 100 MG PO DAILY, TAB LAST FILLED 04-08-2023 #90/90 DAY SUPPLY Potassium Chloride (Potassium Chloride) 20 Meq Tab.er.prt 20 MEQ PO DAILY Spironolactone (Spironolactone) 25 Mg Tablet 25 MG PO DAILY, TAB LAST FILLED 02-01-2022 #90/90 DAY SUPPLY Patient Instructions Goal/Follow Up Appt: Chioma Hamilton 1 week Patient Instructions: New home oxygen order placed Activity & Diet Discharge Diet: Cardiac Diet Activity as Tolerated: Yes MARYJO ORR MD Jan 11, 2023 13:08
[2023-01-11] MEDS ORDERED: FUROSEMIDE 40 MG (LASIX) TAB PO SCH (21:00)
[2023-01-12] MEDS ORDERED: meTOprolol SUCCINATE 100 MG (TOPROL XL) TAB PO SCH (09:00)
[2023-01-12] MEDS ORDERED: SPIRONOLACTONE 25 MG (ALDACTONE) TAB PO SCH (09:00)
[2023-01-12] MEDS ORDERED: ASPIRIN E.C. 81 MG (ECOTRIN) TAB PO SCH (09:00)
[2023-01-12] MEDS ORDERED: lisINopril 20 MG (PRINIVIL) TABLET PO SCH (09:00)
[2023-01-12] MEDS ORDERED: KCL 20 MEQ TAB (K-DUR) PO SCH (09:00)
== END 2023-01-11 16:30 | disposition home or self-care (01) ==
LOC: EDUNIT# 11:11 → ER 11:12 → ICU 15:57 → UNDOADMOB 15:57 → ICU 16:43 → UNDODISOB 01-11 16:30
PROVIDERS: ADMIT Family Medicine; ATTEND Family Medicine
DX: J96.21 Acute and chronic respiratory failure with hypoxia (principal); I11.0 Hypertensive heart disease with heart failure; I50.23 Acute on chronic systolic (congestive) heart failure; J81.0 Acute pulmonary edema; J44.9 Chronic obstructive pulmonary disease, unspecified; R77.8 Other specified abnormalities of plasma proteins; M54.9 Dorsalgia, unspecified; M25.559 Pain in unspecified hip; E78.5 Hyperlipidemia, unspecified; G89.29 Other chronic pain; F12.90 Cannabis use, unspecified, uncomplicated; Z87.891 Personal history of nicotine dependence; Z79.899 Other long term (current) drug therapy
CPT/HCPCS: 36415; 71045; 71275; 80053; 83690; 83735; 83874; 83880; 84484; 85025; 85379; 85610; 85730; 93005; 94640; 94761; 96372; 96376

== ENCOUNTER 2023-01-13 16:33 | Emergency (ER) | payer OTHER, MEDICAID ==
[~2023-01-13] VITALS: Ht 172.7 cm; Wt 87.9 kg
--- NOTE | 2023-01-13 17:00 | ED General ---
General Chief Complaint: Respiratory Problems Stated Complaint: HIGH BLOOD PRESSURE/VOMITTING Nursing Triage Note: PT ARRIVED POV WITH CC OF ELEVATED BP, SOB, CP, AND N/V. PT WAS ADMITTED TO ICU AND DISCHARGED SUNDAY. PT VOMITTED 10 MINUTES BEFORE ARRIVAL. History of Present Illness Date Seen by Provider: Jan 13, 2023 Time Seen by Provider: 16:45 Initial Comments 57 year old male presents for LUQ pain with nausea and vomiting that began today, with elevated. Denies chest pain or increase in SOA. Wearing O2 at home, at all times. He was discharged from this ICU on 01/11/23, with home oxygen and adjustments to medications. Has appts in [place] with Cardiology. Echo 10/29: LVEF 20-25%, mod enlargement of the right heart, mild to mod MR, PASP 45-50 mmHg - Reports a h/o card cath by Dr Jeffery in [place], [place] and states it did not significant CAD. May have open heart surgery with Dr. Jeffery, seeing him 01/15/23 - Status post ICD placement. Implanted in Aug [address] Hardy in [place], [place]. Timing/Duration: 4-6 Hours Associated Systoms: No Chest Pain, No Cough, No Diaphoresis, No Loss of Appetite; Malaise, Nausea/Vomiting, Shortness of Air (chronic, on NC O2 at 4 L. ) Allergies and Home Medications Allergies Coded Allergies: Penicillins (Unverified Allergy, Unknown, 03/02/12) diphenhydramine HCl (Verified Allergy, Unknown, 09/28/13) latex (Unverified Adverse Reaction, Mild, rash, 09/28/13) Patient Home Medication List Home Medication List Reviewed: Yes Aspirin (Aspirin EC) 81 Mg Tablet.dr, 81 MG PO DAILY, (Reported) Entered as Reported by: NICHOLAS TAMAYO on 01/11/23 1110 Atorvastatin Calcium (Atorvastatin Calcium) 40 Mg Tablet, 40 MG PO HS, (Reported) Entered as Reported by: DESHAUN VILLAREAL on 10/28/22 0947 Furosemide (Furosemide) 40 Mg Tablet, 40 MG PO BID, (Reported) Entered as Reported by: NICHOLAS TAMAYO on 01/11/23 1110 Gabapentin (Gabapentin) 800 Mg Tablet, 800 MG PO TID, (Reported) Entered as Reported by: FREDDY ROSALES on 08/04/15 0526 Lisinopril (Lisinopril) 20 Mg Tablet, 20 MG PO DAILY, (Reported) Entered as Reported by: NICHOLAS TAMAYO on 01/11/23 1110 Metoprolol Succinate (Metoprolol Succinate) 100 Mg Tab.er.24h, 100 MG PO DAILY, (Reported) Entered as Reported by: DESHAUN VILLAREAL on 10/28/22 0947 Ondansetron (Ondansetron Odt) 4 Mg Tab.rapdis, 4 MG PO Q6H PRN for NAUSEA/VOMITI NG Prescribed by: DESHAUN HINES on 01/13/23 1816 Potassium Chloride (Potassium Chloride) 20 Meq Tab.er.prt, 20 MEQ PO DAILY, (Reported) Entered as Reported by: DESHAUN VILLAREAL on 10/28/22 09 Spironolactone (Spironolactone) 25 Mg Tablet, 25 MG PO DAILY, (Reported) Entered as Reported by: DESHAUN VILLAREAL on 10/28/22 0947 Discontinued Medications Aspirin (Aspirin EC) 81 Mg Tablet.dr, 81 MG PO DAILY Discontinued Reason: Duplicate Order Prescribed by: CINDY ANDERSON on 11/13/22 1045 Furosemide (Furosemide) 40 Mg Tablet, 40 MG PO BID Discontinued Reason: Duplicate Order Prescribed by: CANDIE NUÑEZ on 10/28/22 1146 Sacubitril/Valsartan (Entresto 24 mg-26 mg Tablet) 24 Mg-26 Mg Tablet, 1 TAB PO BID Discontinued Reason: No Longer Taking Prescribed by: CINDY ANDERSON on 11/13/22 1045 Review of Systems Review of Systems Constitutional: no symptoms reported, see HPI Respiratory: see HPI, dyspnea on exertion Cardiovascular: no symptoms reported, see HPI; No chest pain Gastrointestinal: see HPI, abdominal pain (LUQ), nausea, vomiting Musculoskeletal: no symptoms reported, see HPI All Other Systems Reviewed Negative Unless Noted: Yes Past Cxotrir-Hqwjca-Kcgnwm Hx Patient Social History Tobacco Use?: No Smoking Status: Former Smoker Substance use?: No Alcohol Use?: No Immunizations Up To Date First/Initial COVID19 Vaccinat: NO Second COVID19 Vaccination Eric: NO Third COVID19 Vaccination Date: NO Seasonal Allergies Seasonal Allergies: No Past Medical History Surgery/Hospitalization HX: defibrillator carpal tunnel, r knee Surgeries: Yes Appendectomy, Cardiac, Orthopedic Respiratory: Yes Asthma, COPD Cardiac: Yes Hypertension Reproductive Disorders: No Musculoskeletal: Yes Chronic Back Pain Psychosocial: Yes Sleep Difficulties Adverse Reaction/Blood Tranf: No Family Medical History Reviewed Nursing Family Hx No Pertinent Family Hx Physical Exam Vital Signs Vital Signs - First Documented 01/13/23 01/13/23 16:40 16:44 Pulse 88 B/P (MAP) 135/102 (113) Pulse Ox 100 O2 Delivery Nasal Cannula O2 Flow Rate 4.00 Capillary Refill : Height, Weight, BMI Height: 5'7" Weight: 200lbs. 6.4oz. 90.075316rr; 29.00 BMI Method:Estimated General Appearance: No Apparent Distress, WD/WN Neck: Full Range of Motion, Normal Inspection, Non Tender, Supple Respiratory: Chest Non Tender, Lungs Clear, Normal Breath Sounds Cardiovascular: Regular Rate, Rhythm, No Edema, No Murmur, Normal Peripheral Pulses Extremity: Normal Capillary Refill, Normal Inspection, Normal Range of Motion, No Pedal Edema Neurologic/Psychiatric: Alert, Oriented x3, No Motor/Sensory Deficits, Normal Mood/Affect Progress/Results/Core Measures Suspected Sepsis SIRS Temperature: Pulse: 88 Respiratory Rate: Laboratory Tests 01/13/23 16:53: White Blood Count 8.4 Blood Pressure 135 /102 Mean: 113 Laboratory Tests 01/13/23 16:53: Creatinine 1.56H, INR Comment 1.3, Platelet Count 177, Total Bilirubin 2.2H Results/Orders Lab Results Laboratory Tests Test 01/13/23 16:53 01/13/23 17:28 Range/Units White Blood Count 8.4 4.3-11.0 10^3/uL Red Blood Count 5.59 H 4.30-5.52 10^6/uL Hemoglobin 14.8 13.3-17.7 g/dL Hematocrit 45 40-54 % Mean Corpuscular Volume 80 80-99 fL Mean Corpuscular Hemoglobin 27 25-34 pg Mean Corpuscular Hemoglobin Concent 33 32-36 g/dL Red Cell Distribution Width 16.7 H 10.0-14.5 % Platelet Count 177 130-400 10^3/uL Mean Platelet Volume 12.3 H 9.0-12.2 fL Immature Granulocyte % (Auto) 0 % Neutrophils (%) (Auto) 59 42-75 % Lymphocytes (%) (Auto) 27 12-44 % Monocytes (%) (Auto) 11 0-12 % Eosinophils (%) (Auto) 2 0-10 % Basophils (%) (Auto) 1 0-10 % Neutrophils # (Auto) 5.0 1.8-7.8 10^3/uL Lymphocytes # (Auto) 2.3 1.0-4.0 10^3/uL Monocytes # (Auto) 0.9 0.0-1.0 10^3/uL Eosinophils # (Auto) 0.1 0.0-0.3 10^3/uL Basophils # (Auto) 0.1 0.0-0.1 10^3/uL Immature Granulocyte # (Auto) 0.0 0.0-0.1 10^3/uL Prothrombin Time 15.8 H 12.2-14.7 SEC INR Comment 1.3 0.8-1.4 Activated Partial Thromboplast Time 29 24-35 SEC Sodium Level 139 135-145 MMOL/L Potassium Level 4.0 3.6-5.0 MMOL/L Chloride Level 104 98-107 MMOL/L Carbon Dioxide Level 20 L 21-32 MMOL/L Anion Gap 15 H 5-14 MMOL/L Blood Urea Nitrogen 26 H 7-18 MG/DL Creatinine 1.56 H 0.60-1.30 MG/DL Estimat Glomerular Filtration Rate 51 BUN/Creatinine Ratio 17 Glucose Level 106 H 70-105 MG/DL Calcium Level 9.6 8.5-10.1 MG/DL Corrected Calcium 9.4 8.5-10.1 MG/DL Magnesium Level 2.2 1.6-2.4 MG/DL Total Bilirubin 2.2 H 0.1-1.0 MG/DL Aspartate Amino Transf (AST/SGOT) 23 5-34 U/L Alanine Aminotransferase (ALT/SGPT) 23 0-55 U/L Alkaline Phosphatase 99 40-136 U/L Myoglobin 67.1 10.0-92.0 NG/ML Troponin I < 0.028 <0.028 NG/ML B-Type Natriuretic Peptide 2666.5 H <100.0 PG/ML Total Protein 7.7 6.4-8.2 GM/DL Albumin 4.2 3.2-4.5 GM/DL Urine Color YELLOW Urine Clarity CLEAR Urine pH 5.5 5-9 Urine Specific [place] 1.015 L 1.016-1.022 Urine Protein NEGATIVE NEGATIVE Urine Glucose (UA) NEGATIVE NEGATIVE Urine Ketones NEGATIVE NEGATIVE Urine Nitrite NEGATIVE NEGATIVE Urine Bilirubin NEGATIVE NEGATIVE Urine Urobilinogen >=8.0 < = 1.0 MG/DL Urine Leukocyte Esterase NEGATIVE NEGATIVE Urine RBC (Auto) NEGATIVE NEGATIVE Urine RBC NONE /HPF Urine WBC RARE /HPF Urine Squamous Epithelial Cells 0-2 /HPF Urine Crystals NONE /LPF Urine Bacteria NEGATIVE /HPF Urine Casts NONE /LPF Urine Mucus SMALL H /LPF Urine Culture Indicated NO Urine Opiates Screen NEGATIVE NEGATIVE Urine Oxycodone Screen NEGATIVE NEGATIVE Urine Methadone Screen NEGATIVE NEGATIVE Urine Propoxyphene Screen NEGATIVE NEGATIVE Urine Barbiturates Screen NEGATIVE NEGATIVE Ur Tricyclic Antidepressants Screen NEGATIVE NEGATIVE Urine Phencyclidine Screen NEGATIVE NEGATIVE Urine Amphetamines Screen NEGATIVE NEGATIVE Urine Methamphetamines Screen NEGATIVE NEGATIVE Urine Benzodiazepines Screen NEGATIVE NEGATIVE Urine Cocaine Screen NEGATIVE NEGATIVE Urine Cannabinoids Screen POSITIVE H NEGATIVE My Orders Orders - DESHAUN HINES RN MENTAL [facility]ALTH Ekg Tracing (01/13/23 16:59) Cbc With Automated Diff (01/13/23 17:00) Magnesium (01/13/23 17:00) Chest 1 View, Ap/Pa Only (01/13/23 17:00) Ekg Tracing (01/13/23 17:00) Comprehensive Metabolic Panel (01/13/23 17:00) Myoglobin Serum (01/13/23 17:00) Protime With Inr (01/13/23 17:00) Partial Thromboplastin Time (01/13/23 17:00) O2 (01/13/23 17:00) Monitor-Rhythm Ecg Trace Only (01/13/23 17:00) Ed Iv/Invasive Line Start (01/13/23 17:00) Bnp Jonh (01/13/23 17:00) Troponin I Jonh (01/13/23 17:00) Drug Screen Stat (Urine) (01/13/23 17:03) Ua Culture If Indicated (01/13/23 17:03) Ondansetron Injection (Zofran Injectio (01/13/23 17:15) Rx-Ondansetron Po (Rx-Zofran Po) (01/13/23 18:19) Medications Given in ED Current Medications Medications Dose Ordered Sig/Nicole Route Start Time Stop Time Status Last Admin Dose Admin Ondansetron HCl 4 mg ONCE ONCE IVP 01/13/23 17:15 01/13/23 17:16 DC 01/13/23 17:10 4 MG Vital Signs/I&O 01/13/23 01/13/23 01/13/23 01/13/23 16:40 16:44 16:44 18:34 Pulse 88 88 B/P (MAP) 135/102 (113) 128/93 Pulse Ox 100 100 O2 Delivery Nasal Cannula Nasal Cannula Nasal Cannula Nasal Cannula O2 Flow Rate 4.00 4.00 4.00 4.00 4.00 Capillary Refill : Blood Pressure Mean: 113 Progress Note : Time: 16:45 Progress Note patient assessed, will obtain labs, EKG, Chest X-ray and continue to monitor. B/P 135/102. Reviewed labs and notes from previous admission. Zofran 4 mg IV for nausea/vomiting. Will hold on giving any IVF, with CHF. Patient reports adequate oral hydration today. 1730 B/P 104/80; EKG unchanged from 2 days ago. Troponin negative. BNP 2,665 (on 01/10/23 1,718). He is not symptomatic for heart failure, lungs CTA and chest x- ray clear, no pedal edema. 1800 patient reports to be feeling much better, no further N/V. He is talking on phone and took O2 NC off. SaO2 97% on RA. Discussed options in care, he wishes to return home but would like Rx of Zofran for n/v. Discharge instructions and return precautions reviewed with the patient and his family. Stressed importance to avoid marijuana use and compliance with medical management. ECG Initial ECG Impression Date: Jan 13, 2023 Initial ECG Impression Time: 17:02 Initial ECG Rate: 83 Initial ECG Intervals [place] 156, QRS D 146, QT 428, QTc 468. [place] P44, R -4, T178. Initial ECG Comparisson: Unchanged Diagnostic Imaging Diagonstic Imaging: Xray Plain Films/CT/US/NM/MRI: chest Comments NAME: KIRK SANTOS Tariq MED REC#: [id number] PT STATUS: REG ER : 1965 PHYSICIAN: DESHAUN HINES RN MENTAL HEALTH ADMIT DATE: 01/13/23/ER Draft Date of Exam:01/13/23 CHEST 1 VIEW, AP/PA ONLY INDICATION: Shortness of breath Frontal chest obtained at 0510 p.m. COMPARISON: 01/10/2023 There is cardiomegaly. Pacemaker is unchanged. There is no focal infiltrate or pneumothorax or pleural fluid. IMPRESSION: Cardiomegaly with no acute process in the chest. Dictated on workstation # [id number] Dict: 01/13/23 1735 Trans: 01/13/23 1738 [facility] [id number] Interpreted by: KATLYN KWOK MD Electronically signed by: Reviewed: Reviewed by Me Departure Impression Primary Impression: Hypertension Qualified Codes: I10 - Essential (primary) hypertension Additional Impressions: Chronic HFrEF (heart failure with reduced ejection fraction) Nausea & vomiting Qualified Codes: R11.14 - Bilious vomiting Disposition: HOME, SELF-CARE Condition: Stable Departure-Patient Inst. Decision time for Depature: 18:00 Referrals: EUSEBIO TAVARES APRN (PCP/Family) Primary Care Physician Patient Instructions: Heart Failure, Adult (DC), Nausea and Vomiting, Adult (DC) Add. Discharge Instructions: Continue all home medications as prescribed with your last discharge. Keep your scheduled appointment with cardiology for Sunday. Clear liquid diet for the next 6 to 8 hours then bland diet as tolerated. Use Zofran every 6-8 hours as needed for nausea and vomiting. Follow-up with your primary care provider if symptoms or not improving or worsen. Return to the emergency department for new, urgent healthcare needs. All discharge instructions reviewed with patient and/or family. Voiced understanding. Scripts Ondansetron (Ondansetron Odt) 4 Mg Tab.rapdis 4 MG PO Q6H PRN for NAUSEA/VOMITING, #12 TAB 0 Refills Prov: DESHAUN HINES 01/13/23 DESHAUN HINES Jan 13, 2023 17:00
[2023-01-13 17:07] LABS: BASOPHILS # (AUTO) 0.1 10^3/uL (0.0-0.1); BASOPHILS % (AUTO) 1 % (0-10); EOSINOPHILS # (AUTO) 0.1 10^3/uL (0.0-0.3); EOSINOPHILS % (AUTO) 2 % (0-10); HEMATOCRIT 45 % (40-54); HEMOGLOBIN 14.8 g/dL (13.3-17.7); LYMPHOCYTES # (AUTO) 2.3 10^3/uL (1.0-4.0); LYMPHOCYTES % (AUTO) 27 % (12-44); MEAN CORPUSCULAR HEMOGLOBIN 27 pg (25-34); MEAN CORPUSCULAR HGB CONC 33 g/dL (32-36); MEAN CORPUSCULAR VOLUME 80 fL (80-99); MEAN PLATELET VOLUME 12.3 fL (9.0-12.2); MONOCYTES # (AUTO) 0.9 10^3/uL (0.0-1.0); MONOCYTES % (AUTO) 11 % (0-12); NEUTROPHILS % (AUTO) 59 % (42-75); PLATELET COUNT 177 10^3/uL (130-400); WHITE BLOOD COUNT 8.4 10^3/uL (4.3-11.0)
[2023-01-13 17:11] LABS: INR 1.3 (0.8-1.4); PROTHROMBIN TIME PATIENT 15.8 SEC (12.2-14.7)
[2023-01-13 17:13] LABS: ALBUMIN 4.2 GM/DL (3.2-4.5); CHLORIDE 104 MMOL/L (98-107); SODIUM 139 MMOL/L (135-145)
[2023-01-13 17:15] LABS: CALCIUM 9.6 MG/DL (8.5-10.1)
[2023-01-13] MEDS ORDERED: ONDANSETRON 4 MG/2 ML (SDV) Z0FRAN IVP ONE (17:15)
[2023-01-13 17:16] LABS: GLUCOSE 106 MG/DL (70-105); TOTAL PROTEIN 7.7 GM/DL (6.4-8.2)
[2023-01-13 17:17] LABS: CARBON DIOXIDE 20 MMOL/L (21-32)
[2023-01-13 17:18] LABS: BILIRUBIN,TOTAL 2.2 MG/DL (0.1-1.0)
[2023-01-13 17:19] LABS: ALKALINE PHOSPHATASE 99 U/L (40-136); CREATININE SERUM 1.56 MG/DL (0.60-1.30); GFR ESTIMATED 51
[2023-01-13 17:21] LABS: BUN/CREATININE RATIO 17
[2023-01-13 17:22] LABS: ALANINE AMINOTRANSFERASE 23 U/L (0-55); MAGNESIUM 2.2 MG/DL (1.6-2.4)
[2023-01-13 17:34] LABS: BILIRUBIN,URINE NEGATIVE (NEGATIVE); CLARITY,URINE CLEAR; COLOR,URINE YELLOW; GLUCOSE, URINE (UA) NEGATIVE (NEGATIVE); KETONES,URINE NEGATIVE (NEGATIVE); LEUKOCYTE ESTERASE ,URINE NEGATIVE (NEGATIVE); NITRITE,URINE NEGATIVE (NEGATIVE); PH,URINE 5.5 (5-9); PROTEIN,URINE NEGATIVE (NEGATIVE)
--- NOTE | 2023-01-13 17:38 | Diagnostic Imaging Report ---
INDICATION: Shortness of breath Frontal chest obtained at 0510 p.m. COMPARISON: 01/10/2023 There is cardiomegaly. Pacemaker is unchanged. There is no focal infiltrate or pneumothorax or pleural fluid. IMPRESSION: Cardiomegaly with no acute process in the chest. Dictated by: Dictated on workstation # [id number]
[2023-01-13 17:41] LABS: BACTERIA,URINE NEGATIVE /HPF; SQUAMOUS EPITHELIAL CELL,UR 0-2 /HPF; WBC,URINE RARE /HPF
[2023-01-13 17:53] LABS: AMPHETAMINE SCREEN, URINE NEGATIVE (NEGATIVE); BARBITURATE SCREEN URINE NEGATIVE (NEGATIVE); BENZODIAZEPINES SCREEN URINE NEGATIVE (NEGATIVE); CANNABINOID SCREEN, URINE POSITIVE (NEGATIVE); COCAINE SCREEN URINE NEGATIVE (NEGATIVE); METHADONE STAT NEGATIVE (NEGATIVE); OPIATE SCREEN URINE NEGATIVE (NEGATIVE); OXYCODONE STAT NEGATIVE (NEGATIVE); PROPOXYPHENE STAT NEGATIVE (NEGATIVE); TRICYCLIC ANTIDEPRESSANTS SCRE NEGATIVE (NEGATIVE)
[2023-01-13] MEDS ORDERED: ONDA4TAB11 PO (18:16)
[2023-01-13] MEDS ORDERED: RX-ONDANSETRON 4 MG ODT (ZOFRAN) PPK #4 PO STA (18:19)
[2023-01-13 18:34] VITALS: BP 128/93
== END 2023-01-13 18:36 | disposition home or self-care (01) ==
LOC: EDUNIT# 16:33 → ER 16:36
DX: I11.0 Hypertensive heart disease with heart failure (principal); I50.9 Heart failure, unspecified; Z91.040 Latex allergy status; Z87.891 Personal history of nicotine dependence; Z28.310 Unvaccinated for COVID-19
CPT/HCPCS: 36415; 71045; 80053; 80306; 81000; 83735; 83874; 83880; 84484; 85025; 85610; 85730; 93005; 93041

== ENCOUNTER 2023-02-19 09:55 | Emergency (ER) | payer OTHER, MEDICAID ==
[~2023-02-19 09:55] MED LIST changes: +ONDA4TAB11 PO
--- NOTE | 2023-02-19 10:08 | ED General ---
General Chief Complaint: General Problems/Pain Stated Complaint: SOB | CHEST PAIN Source of Information: Patient, Old Records Exam Limitations: No Limitations History of Present Illness Date Seen by Provider: Feb 19, 2023 Time Seen by Provider: 09:59 Initial Comments 57-year-old male with past medical history of HFrEF, COPD, chronic hypoxic respiratory failure on 3 L O2 coming in due to chest pain and shortness of breath. Started around 3 AM this morning, center of his chest, constant, pressure-like. He states it feels like when he had "walking pneumonia". He does state he was also doing a renovation of the home, sprayed some "chemicals" yesterday and he believes this is all because he inhaled these in the room. Denies any true fever, does feel like he is a little warmer, is having more of a productive cough, had an episode of nonbloody nonbilious vomiting this morning as well. Otherwise denying any other acute complaints. He did take his medications this morning including 1 baby aspirin. Allergies and Home Medications Allergies Coded Allergies: Penicillins (Unverified Allergy, Unknown, 03/02/12) diphenhydramine HCl (Verified Allergy, Unknown, 09/28/13) latex (Unverified Adverse Reaction, Mild, rash, 09/28/13) Patient Home Medication List Home Medication List Reviewed: Yes Aspirin (Aspirin EC) 81 Mg Tablet.dr, 81 MG PO DAILY, (Reported) Entered as Reported by: NICHOLAS TAMAYO on 01/11/23 1110 Atorvastatin Calcium (Atorvastatin Calcium) 40 Mg Tablet, 40 MG PO HS, (Reported) Entered as Reported by: DESHAUN VILLAREAL on 10/28/22 0947 Furosemide (Furosemide) 40 Mg Tablet, 40 MG PO BID, (Reported) Entered as Reported by: NICHOLAS TAMAYO on 01/11/23 1110 Gabapentin (Gabapentin) 800 Mg Tablet, 800 MG PO TID, (Reported) Entered as Reported by: FREDDY ROSALES on 08/04/15 0526 Lisinopril (Lisinopril) 20 Mg Tablet, 20 MG PO DAILY, (Reported) Entered as Reported by: NICHOLAS TAMAYO on 01/11/23 1110 Metoprolol Succinate (Metoprolol Succinate) 100 Mg Tab.er.24h, 100 MG PO DAILY, (Reported) Entered as Reported by: DESHAUN VILLAREAL on 10/28/2247 Ondansetron (Ondansetron Odt) 4 Mg Tab.rapdis, 4 MG PO Q6H PRN for NAUSEA/VOMITING Prescribed by: DESHAUN HINES on 01/13/231815 Potassium Chloride (Potassium Chloride) 20 Meq Tab.er.prt, 20 MEQ PO DAILY, (Reported) Entered as Reported by: DESHAUN VILLAREAL on 10/28/22946 Spironolactone (Spironolactone) 25 Mg Tablet, 25 MG PO DAILY, (Reported) Entered as Reported by: DESHAUN VILLAREAL on 10/28/22946 Review of Systems Review of Systems Constitutional: No fever EENTM: see HPI Respiratory: see HPI Cardiovascular: see HPI Gastrointestinal: no symptoms reported Genitourinary: no symptoms reported Musculoskeletal: no symptoms reported Skin: no symptoms reported Psychiatric/Neurological: No Symptoms Reported Past Imraxgk-Qhdmcw-Cuncdy Hx Immunizations Up To Date First/Initial COVID19 Vaccinat: NO Second COVID19 Vaccination Eric: NO Third COVID19 Vaccination Date: NO Seasonal Allergies Seasonal Allergies: No Past Medical History Surgery/Hospitalization HX: defibrillator carpal tunnel, r knee Surgeries: Yes Appendectomy, Cardiac, Orthopedic Respiratory: Yes Asthma, COPD Cardiac: Yes Hypertension Reproductive Disorders: No Musculoskeletal: Yes Chronic Back Pain Psychosocial: Yes Sleep Difficulties Adverse Reaction/Blood Tranf: No Family Medical History No Pertinent Family Hx Physical Exam Vital Signs Vital Signs - First Documented 02/19/23 09:55 Temp 37.8 Pulse 99 Resp 20 B/P (MAP) 144/105 (118) Pulse Ox 94 O2 Delivery Nasal Cannula O2 Flow Rate 3.00 Capillary Refill : Height, Weight, BMI Height: 5'7" Weight: 200lbs. 6.4oz. [id number]; 29.00 BMI Method:Estimated General Appearance: No Apparent Distress, WD/WN Eyes: Bilateral Eye Normal Inspection HEENT: PERRL/EOMI, Normal ENT Inspection, Pharynx Normal Neck: Full Range of Motion, Normal Inspection, Non Tender, Supple Respiratory: Chest Non Tender, No Accessory Muscle Use, No Respiratory Distress, Crackles, Wheezing Cardiovascular: Regular Rate, Rhythm, Normal Peripheral Pulses Gastrointestinal: Normal Bowel Sounds, Non Tender, Soft; No Guarding Back: Normal Inspection, No CVA Tenderness Extremity: Normal Capillary Refill, Normal Inspection, Normal Range of Motion, Non Tender, No Calf Tenderness, No Pedal Edema Neurologic/Psychiatric: Alert, Oriented x3, No Motor/Sensory Deficits, Normal Mood/Affect Skin: Normal Color, Warm/Dry Progress/Results/Core Measures Suspected Sepsis SIRS Temperature: Pulse: Respiratory Rate: Laboratory Tests 02/19/23 10:03: White Blood Count 12.3H Blood Pressure / Mean: Laboratory Tests 02/19/23 10:03: Creatinine 1.32H, INR Comment 1.1, Platelet Count 146, Total Bilirubin 1.9H Results/Orders Lab Results Laboratory Tests Test 02/19/23 10:03 02/19/23 10:10 Range/Units White Blood Count 12.3 H 4.3-11.0 10^3/uL Red Blood Count 5.28 4.30-5.52 10^6/uL Hemoglobin 13.8 13.3-17.7 g/dL Hematocrit 42 40-54 % Mean Corpuscular Volume 79 L 80-99 fL Mean Corpuscular Hemoglobin 26 25-34 pg Mean Corpuscular Hemoglobin Concent 33 32-36 g/dL Red Cell Distribution Width 20.1 H 10.0-14.5 % Platelet Count 146 130-400 10^3/uL Mean Platelet Volume 11.1 9.0-12.2 fL Immature Granulocyte % (Auto) 0 % Neutrophils (%) (Auto) 86 H 42-75 % Lymphocytes (%) (Auto) 7 L 12-44 % Monocytes (%) (Auto) 6 0-12 % Eosinophils (%) (Auto) 0 0-10 % Basophils (%) (Auto) 1 0-10 % Neutrophils # (Auto) 10.6 H 1.8-7.8 10^3/uL Lymphocytes # (Auto) 0.9 L 1.0-4.0 10^3/uL Monocytes # (Auto) 0.7 0.0-1.0 10^3/uL Eosinophils # (Auto) 0.0 0.0-0.3 10^3/uL Basophils # (Auto) 0.1 0.0-0.1 10^3/uL Immature Granulocyte # (Auto) 0.0 0.0-0.1 10^3/uL Neutrophils % (Manual) 87 % Lymphocytes % (Manual) 9 % Monocytes % (Manual) 3 % Band Neutrophils 1 % Toxic Granulation 1+ Anisocytosis SLIGHT Prothrombin Time 14.8 H 12.2-14.7 SEC INR Comment 1.1 0.8-1.4 Activated Partial Thromboplast Time 30 24-35 SEC Sodium Level 137 135-145 MMOL/L Potassium Level 4.3 3.6-5.0 MMOL/L Chloride Level 104 98-107 MMOL/L Carbon Dioxide Level 21 21-32 MMOL/L Anion Gap 12 5-14 MMOL/L Blood Urea Nitrogen 15 7-18 MG/DL Creatinine 1.32 H 0.60-1.30 MG/DL Estimat Glomerular Filtration Rate 63 BUN/Creatinine Ratio 11 Glucose Level 132 H 70-105 MG/DL Calcium Level 9.3 8.5-10.1 MG/DL Corrected Calcium 9.1 8.5-10.1 MG/DL Magnesium Level 1.9 1.6-2.4 MG/DL Total Bilirubin 1.9 H 0.1-1.0 MG/DL Aspartate Amino Transf (AST/SGOT) 19 5-34 U/L Alanine Aminotransferase (ALT/SGPT) 16 0-55 U/L Alkaline Phosphatase 94 40-136 U/L Troponin I < 0.028 <0.028 NG/ML B-Type Natriuretic Peptide 2764.2 H <100.0 PG/ML Total Protein 7.9 6.4-8.2 GM/DL Albumin 4.2 3.2-4.5 GM/DL Lipase 12 8-78 U/L Influenza Type A (RT-PCR) Not Detected Not Detecte Influenza Type B (RT-PCR) Not Detected Not Detecte SARS-CoV-2 RNA (RT-PCR) Not Detected Not Detecte My Orders Orders - VIRGIL CONROY MD Ekg Tracing (02/19/23 10:00) Cbc With Automated Diff (02/19/23 10:04) Magnesium (02/19/23 10:04) Chest 1 View, Ap/Pa Only (02/19/23 10:04) Ekg Tracing (02/19/23 10:04) Comprehensive Metabolic Panel (02/19/23 10:04) Protime With Inr (02/19/23 10:04) Partial Thromboplastin Time (02/19/23 10:04) O2 (02/19/23 10:04) Monitor-Rhythm Ecg Trace Only (02/19/23 10:04) Ed Iv/Invasive Line Start (02/19/23 10:04) Lipase (02/19/23 10:04) Bnp Jonh (02/19/23 10:04) Troponin I Jonh (02/19/23 10:04) Aspirin Chewable Tablet (Aspirin Chewabl (02/19/23 10:15) Influenza A And B By Pcr (02/19/23 10:04) Covid 19 Inhouse Test (02/19/23 10:04) Ipratropium/Albuterol Inh Soln (Ipratrop (02/19/23 10:15) Manual Differential (02/19/23 10:03) Furosemide Injection (Furosemide Injec (02/19/23 11:30) Medications Given in ED Current Medications Medications Dose Ordered Sig/Nicole Route Start Time Stop Time Status Last Admin Dose Admin Albuterol/ Ipratropium 3 ml ONCE ONCE INH 02/19/23 10:15 02/19/23 10:16 DC 02/19/23 10:23 3 ML Aspirin 243 mg ONCE ONCE PO 02/19/23 10:15 02/19/23 10:16 DC 02/19/23 10:14 243 MG Vital Signs/I&O 02/19/23 02/19/23 02/19/23 09:55 10:20 10:27 Temp 37.8 Pulse 99 Resp 20 B/P (MAP) 144/105 (118) Pulse Ox 94 95 O2 Delivery Nasal Cannula Nasal Cannula Room Air O2 Flow Rate 3.00 3.00 Capillary Refill : Progress Note : Progress Note 57-year-old male with above history coming in due to chest pain and shortness of breath. ABCs were intact and vitals were stable on presentation. Physical exam with crackles and wheezing on all lung sanders. He was given a DuoNeb as well as full dose aspirin. EKG ordered and interpreted by me showing no STEMI. An IV was placed and basic labs were obtained and were significant for elevated BNP higher than he is ever been, negative troponin, creatinine around his baseline, mild leukocytosis. Chest x-ray ordered and interpreted by me showing bilateral pulmonary edema. I give him an extra dose of IV Lasix with significant improvement in his symptoms, and he is urinating quite a bit as expected. I offered the patient admission, he is adamant that he would like to go home and that he is already feeling better. He has follow-up with his insurance application investigator. This is reasonable at that time. He will be discharged home in stable condition with strict return precautions. ECG Initial ECG Impression Date: Feb 19, 2023 Initial ECG Impression Time: 10:06 Initial ECG Rate: 104 Comment Ventricularly paced rhythm with a wide QRS, no STEMI Diagnostic Imaging Diagonstic Imaging: Xray (chest) Comments [facility], [place] NAME: KIRK SANTOS [facility] REC#: [id number] PT STATUS: REG ER : 1965 PHYSICIAN: VIRGIL CONROY MD ADMIT DATE: 02/19/23/ER Draft Date of Exam:02/19/23 CHEST 1 VIEW, AP/PA ONLY INDICATION: Chest pain COMPARISON: 01/13/2023 FINDINGS: Single frontal view of the chest demonstrates mild cardiomegaly and pulmonary vascular congestion. Pulmonary interstitium is also slightly prominent. There is no focal alveolar consolidation, large effusion, no pneumothorax. Left-sided AICD is noted. The visualized osseous structures show no acute abnormalities. IMPRESSION: 1. Cardiomegaly with vascular congestion and probable early or mild interstitial pulmonary edema. Dictated on workstation # [id number] Dict: 02/19/23 1052 Trans: 02/19/23 1055 [facility] [id number] Interpreted by: COMFORT MENON MD Electronically signed by: Departure Impression Primary Impression: Pulmonary edema Qualified Codes: J81.0 - Acute pulmonary edema Additional Impressions: Chronic respiratory failure Qualified Codes: J96.11 - Chronic respiratory failure with hypoxia Acute on chronic systolic (congestive) heart failure Disposition: 01 HOME, SELF-CARE Condition: Improved Departure-Patient Inst. Decision time for Depature: 11:30 Referrals: EUSEBIO TAVARES APRN (PCP/Family) Primary Care Physician Patient Instructions: Heart Failure ED Add. Discharge Instructions: You did have extra fluid on your lungs. We gave you an extra dose of Lasix. Continue with what your doctor discussed and take the higher dose of Lasix in the morning. If things start feeling worse, please come back to the ER or call your insurance application investigator. Work/School Note: Family Work Note, Patient Received Medical Care In the Emergency Department On: Feb 19, 2023 Patient Will Be Able to Return to Work/School On: Feb 20, 2023 Work Release Form Date Seen in the Emergency Department: Feb 19, 2023 Return to Work: Feb 20, 2023 Restrictions: No Restrictions VIRGIL CONROY MD Feb 19, 2023 10:08
[2023-02-19 10:10] LABS: BASOPHILS # (AUTO) 0.1 10^3/uL (0.0-0.1); BASOPHILS % (AUTO) 1 % (0-10); EOSINOPHILS % (AUTO) 0 % (0-10); HEMATOCRIT 42 % (40-54); HEMOGLOBIN 13.8 g/dL (13.3-17.7); LYMPHOCYTES # (AUTO) 0.9 10^3/uL (1.0-4.0); LYMPHOCYTES % (AUTO) 7 % (12-44); MEAN CORPUSCULAR HEMOGLOBIN 26 pg (25-34); MEAN CORPUSCULAR HGB CONC 33 g/dL (32-36); MEAN CORPUSCULAR VOLUME 79 fL (80-99); MEAN PLATELET VOLUME 11.1 fL (9.0-12.2); MONOCYTES # (AUTO) 0.7 10^3/uL (0.0-1.0); MONOCYTES % (AUTO) 6 % (0-12); NEUTROPHILS # (AUTO) 10.6 10^3/uL (1.8-7.8); NEUTROPHILS % (AUTO) 86 % (42-75); PLATELET COUNT 146 10^3/uL (130-400); WHITE BLOOD COUNT 12.3 10^3/uL (4.3-11.0)
[2023-02-19] MEDS ORDERED: RT-Ipratropium/Albuterol NEB 3 ML VIAL INH ONE (10:15)
[2023-02-19] MEDS ORDERED: ASPIRIN 81 MG CHEWABLE TABLET PO ONE (10:15)
[2023-02-19 10:16] LABS: ALBUMIN 4.2 GM/DL (3.2-4.5)
[2023-02-19 10:17] LABS: CHLORIDE 104 MMOL/L (98-107); POTASSIUM 4.3 MMOL/L (3.6-5.0); SODIUM 137 MMOL/L (135-145)
[2023-02-19 10:18] LABS: CALCIUM 9.3 MG/DL (8.5-10.1); INR 1.1 (0.8-1.4); PROTHROMBIN TIME PATIENT 14.8 SEC (12.2-14.7)
[2023-02-19 10:19] LABS: GLUCOSE 132 MG/DL (70-105); TOTAL PROTEIN 7.9 GM/DL (6.4-8.2)
[2023-02-19 10:20] LABS: CARBON DIOXIDE 21 MMOL/L (21-32)
[2023-02-19 10:21] LABS: BILIRUBIN,TOTAL 1.9 MG/DL (0.1-1.0)
[2023-02-19 10:22] LABS: ALKALINE PHOSPHATASE 94 U/L (40-136)
[2023-02-19 10:23] LABS: CREATININE SERUM 1.32 MG/DL (0.60-1.30); GFR ESTIMATED 63
[2023-02-19 10:24] LABS: BUN/CREATININE RATIO 11
[2023-02-19 10:25] LABS: MAGNESIUM 1.9 MG/DL (1.6-2.4)
[2023-02-19 10:26] LABS: ALANINE AMINOTRANSFERASE 16 U/L (0-55); LIPASE 12 U/L (8-78)
[2023-02-19 10:46] LABS: BAND NEUTROPHILS 1 %; LYMPHOCYTES % (MANUAL) 9 %; MONOCYTES % (MANUAL) 3 %; NEUTROPHILS % (MANUAL) 87 %
[2023-02-19 10:47] LABS: ANISOCYTOSIS SLIGHT; TOXIC GRANULATION/VACUOLAZATIO 1+
--- NOTE | 2023-02-19 10:56 | Diagnostic Imaging Report ---
INDICATION: Chest pain COMPARISON: 01/13/2023 FINDINGS: Single frontal view of the chest demonstrates mild cardiomegaly and pulmonary vascular congestion. Pulmonary interstitium is also slightly prominent. There is no focal alveolar consolidation, large effusion, no pneumothorax. Left-sided AICD is noted. The visualized osseous structures show no acute abnormalities. IMPRESSION: 1. Cardiomegaly with vascular congestion and probable early or mild interstitial pulmonary edema. Dictated by: Dictated on workstation # [id number]
[2023-02-19] MEDS ORDERED: FUROSEMIDE INJECTION 40 MG/4 ML VIAL IVP ONE (11:30)
[2023-02-19] MEDS ORDERED: POTASSIUM CHLORIDE 20 MEQ TABLET PO ONE (11:30)
[2023-02-19 11:53] VITALS: BP 119/80
== END 2023-02-19 11:59 | disposition home or self-care (01) ==
LOC: EDUNIT# 09:55 → ER 09:57
DX: I11.0 Hypertensive heart disease with heart failure (principal); I50.23 Acute on chronic systolic (congestive) heart failure; J96.11 Chronic respiratory failure with hypoxia; J44.9 Chronic obstructive pulmonary disease, unspecified; Z20.822 Contact with and (suspected) exposure to COVID-19; Z99.81 Dependence on supplemental oxygen; Z91.040 Latex allergy status
CPT/HCPCS: 36415; 71045; 80053; 83690; 83735; 83880; 84484; 85007; 85027; 85610; 85730; 87636; 93005; 93041